=== PATIENT | female | born 1965 | race Caucasian/White ===

== ENCOUNTER 2017-01-25 08:39 | Emergency (ER) | payer MEDICAID ==
[~2017-01-25] VITALS: Ht 154.9 cm; Wt 78.5 kg
[~2017-01-25 08:39] MED LIST: [UNRECOGNIZED DRUG - CODE] SUBQ
[2017-01-25 08:43] VITALS: BP 152/86
--- NOTE | 2017-01-25 08:46 | NUR ---
PT AMBULATED TO BED 5.
--- NOTE | 2017-01-25 08:50 | NUR ---
51F BIB DAUGHTER C/O HEADACHE "ALL AROUND MY HEAD", NON-RADIATING, PRESSURE, 8/10 X 3 DAYS; PT STATES NO TRAUMA OR INJURY TO SITE AT THIS TIME; PT STATES NO BLURRY VISION OR VISION LOSS AT THIS TIME; NO FACIAL ASYMMETRY NOTED AT THIS TIME; PT SPEAKING WITH FULL CLEAR SPEECH, EQUAL BUE TOMB MAKER HELPER/PUSHES/PULLS NOTED AT THIS TIME; PT C/O NAUSEA, BUT STATES NO VOMITING OR DIARRHEA AT THIS TIME; ABDOMEN SOFT, NON-TENDER, ACTIVE BOWEL SOUNDS X 4 QUADRANTS; SKIN IS WARM/DRY/INTACT; STEADY GAIT; PT RESTING IN BED WITH HOB ELEVATED AND IN LOWEST POSITION; POSITIONED FOR COMFORT; ER MD MADE AWARE OF STATUS; WILL CONTINUE TO MONITOR.
--- NOTE | 2017-01-25 09:01 | NUR ---
ER MD DR. LEDESMA EVALUATING PT AT BEDSIDE.
[2017-01-25] MEDS ORDERED: METOCLOPRAMIDE 10 MG/2 ML INJ VIAL IM ONE (09:05)
--- NOTE | 2017-01-25 09:45 | NUR ---
PT STATES PAIN NOT RELIEVED BY MEDICATION ORDERED BY ER MD; ER MD NOTIFIED; RR EVEN/UNLABORED; POSITIONED FOR COMFORT; WILL CONTINUE TO MONITOR.
[2017-01-25] MEDS ORDERED: HYDROcodone/APAP 5/325 MG 1 TAB TAB PO ONE (09:50)
[2017-01-25 10:15] VITALS: BP 152/86
--- NOTE | 2017-01-25 10:15 | NUR ---
Patient discharged with v/s stable. Written and verbal after care instructions given and explained. Patient alert, oriented and verbalized understanding of instructions. Ambulatory with steady gait. All questions addressed prior to discharge. ID band removed. Patient advised to follow up with PMD. Rx of REGLAN AND NORCO given. Patient educated on indication of medication including possible reaction and side effects. Opportunity to ask questions provided and answered.
== END 2017-01-25 10:15 | disposition home or self-care (01) ==
LOC: MED 08:39
DX: R51 Headache (principal); R11.0 Nausea; E11.9 Type 2 diabetes mellitus without complications; K21.9 Gastro-esophageal reflux disease without esophagitis; Z79.4 Long term (current) use of insulin
CPT/HCPCS: 82948; 96372; 99283; J2765

== ENCOUNTER 2017-04-01 09:52 | Emergency (ER) | payer MEDICAID ==
[~2017-04-01] VITALS: Ht 152.4 cm; Wt 75.7 kg
[2017-04-01 09:57] VITALS: BP 145/103
[2017-04-01] MEDS ORDERED: LORazepam 0.5 MG TAB PO ONE (10:25)
[2017-04-01] MEDS ORDERED: traMADol 50 MG TAB PO ONE (11:15)
[2017-04-01] MEDS ORDERED: ONDANSETRON 4 MG ODT PO ONE (11:15)
[2017-04-01] MEDS ORDERED: INSULIN HUMAN REGULAR 100 UNITS/ML 10 ML VIAL SUBQ ONE (11:50)
[2017-04-01 12:34] VITALS: BP 133/88
== END 2017-04-01 12:34 | disposition home or self-care (01) ==
LOC: MED 09:52
DX: G44.209 Tension-type headache, unspecified, not intractable (principal); F41.9 Anxiety disorder, unspecified; I10 Essential (primary) hypertension; E11.9 Type 2 diabetes mellitus without complications; K21.9 Gastro-esophageal reflux disease without esophagitis; Z79.4 Long term (current) use of insulin
CPT/HCPCS: 70450; 81002; 82948; 96372; 99284; J1815; S0119

== ENCOUNTER 2017-05-17 09:55 | Emergency (ER) | payer MEDICAID ==
[~2017-05-17] VITALS: Ht 154.9 cm; Wt 80.0 kg
[2017-05-17 10:04] VITALS: BP 150/86
--- NOTE | 2017-05-17 10:09 | NUR ---
PT TRIAGED, WAITING IN LOBBY FOR ER BED. ERMD NOTIFIED.
--- NOTE | 2017-05-17 10:15 | NUR ---
Patient to OF.
--- NOTE | 2017-05-17 10:28 | NUR ---
PATIENT PRESENTS TO ED WITH general headache pressure type pain x 4 days---denies injury . PT STATES [seen by pmd 1 wk ago rx ibuprofen but told to suspend 2 to peptic ulcer/gerd admits to NAUSEA ONLY SKIN IS PINK/WARM/DRY; AAOX4 WITH EVEN AND STEADY GAIT; LUNGS CLEAR BL; HR EVEN AND REGULAR; PT DENIES ANY FEVER, CP, SOB,NASAL CONGESTION OR COUGH AT THIS TIME; PATIENT STATES PAIN OF 9/10 AT THIS TIME; VSS; PATIENT POSITIONED FOR COMFORT; HOB ELEVATED; BEDRAILS UP X2; BED DOWN. ER MD MADE AWARE OF PT STATUS.
[2017-05-17] MEDS ORDERED: KETOROLAC 60 MG/2 ML VIAL IM ONE (10:40)
[2017-05-17 11:13] VITALS: BP 136/83
--- NOTE | 2017-05-17 11:13 | NUR ---
Patient discharged with v/s stable. Written and verbal after care instructions given and explained. Patient alert, oriented and verbalized understanding of instructions. Ambulatory with steady gait. All questions addressed prior to discharge. ID band removed. Patient advised to follow up with PMD. Rx of ZOFRAN/TRAMADOL given. Patient educated on indication of medication including possible reaction and side effects. Opportunity to ask questions provided and answered.
== END 2017-05-17 11:13 | disposition home or self-care (01) ==
LOC: MED 09:55
DX: R51 Headache (principal); R03.0 Elevated blood-pressure reading, without diagnosis of hypertension; E11.9 Type 2 diabetes mellitus without complications; K21.9 Gastro-esophageal reflux disease without esophagitis; Z79.899 Other long term (current) drug therapy
CPT/HCPCS: 82948; 96372; 99283; J1885

== ENCOUNTER 2017-08-23 10:28 | Emergency (ER) | payer MEDICAID ==
[~2017-08-23] VITALS: Ht 154.9 cm; Wt 78.9 kg
[2017-08-23 10:30] VITALS: BP 119/83
--- NOTE | 2017-08-23 10:40 | NUR ---
PATIENT PRESENTS TO ED WITH RIGHT HAND PAIN RADIATING RIGHT UP ARM AND SHOULDER X 1MONTH . PT STATES DENIES INJURY--WAS SEEN BY PMD 2 WKS AGO . DENIES N/V/D; SKIN IS PINK/WARM/DRY; AAOX4 WITH EVEN AND STEADY GAIT; LUNGS CLEAR BL; HR EVEN AND REGULAR; PT DENIES ANY FEVER, CP, SOB, OR COUGH AT THIS TIME; PATIENT STATES PAIN OF 7/10 AT THIS TIME; VSS; PATIENT POSITIONED FOR COMFORT; ER MD MADE AWARE OF PT STATUS.
[2017-08-23] MEDS ORDERED: KETOROLAC 30 MG/ML VIAL IM ONE (10:55)
--- NOTE | 2017-08-23 11:00 | NUR ---
PT TO RADIOLOGY VIA
--- NOTE | 2017-08-23 11:09 | NUR ---
returned from radiology
[2017-08-23 11:56] VITALS: BP 141/90
== END 2017-08-23 11:56 | disposition home or self-care (01) ==
LOC: MED 10:28
DX: G56.01 Carpal tunnel syndrome, right upper limb (principal); Z76.5 Malingerer [conscious simulation]; E11.9 Type 2 diabetes mellitus without complications; K21.9 Gastro-esophageal reflux disease without esophagitis; Z79.84 Long term (current) use of oral hypoglycemic drugs
CPT/HCPCS: 29125; 73130; 96372; 99284; J1885

== ENCOUNTER 2017-09-11 09:43 | Emergency (ER) | payer MEDICAID ==
[~2017-09-11] VITALS: Ht 157.5 cm; Wt 79.4 kg
[2017-09-11 09:59] VITALS: BP 133/85
[2017-09-11 10:05] VITALS: BP 133/85
[2017-09-11] MEDS ORDERED: PROCHLORPERAZINE 10 MG/2 ML VIAL IM ONE (12:30)
[2017-09-11] MEDS ORDERED: traMADol 50 MG TAB PO ONE (12:30)
== END 2017-09-11 13:00 | disposition home or self-care (01) ==
LOC: MED 09:43
DX: G43.909 Migraine, unspecified, not intractable, without status migrainosus (principal); E11.9 Type 2 diabetes mellitus without complications; K21.9 Gastro-esophageal reflux disease without esophagitis
CPT/HCPCS: 81002; 96372; 99283; J0780

== ENCOUNTER 2017-10-03 09:59 | Emergency (ER) | payer MEDICAID ==
[~2017-10-03] VITALS: Ht 157.5 cm; Wt 79.4 kg
[2017-10-03 10:00] VITALS: BP 138/85
--- NOTE | 2017-10-03 10:07 | NUR ---
PT AMBULATED TO BED4
--- NOTE | 2017-10-03 10:13 | NUR ---
T. CAME INTO ED DUE TO R FLANK PAIN X 3 DAYS. PT. AAOX4. PT. STATES "THIS PAIN STARTED ON SATURDAY I WENT TO MY PRIMARY DOCTOR AND THEY SAID I WAS FINE AND JUST PRESCRIBED ME SOME MOTRIN BUT MOTRIN MAKES ME NAUSEAS BECAUSE OF MY GASTRITIS, SO I BOUGHT TYLENOL IT HELPS A LITTLE BUT IT COMES BACK". PT. DENIES ANY BURNING UPON URINATION OR URINARY FREQUENCY, PT STATES THAT SHE HAS REGULAR BOWEL MOVEMENTS, PT STATES" I USED TO HAVE KIDNEY STONES BUT MY DOCTOR SAID I DIDNT ANY MORE " RR EVEN AND UNLABORED, DENIES FEVER, DENIES SOB, DENIES CHEST PAIN, PT DOES HAVE NAUSEA BUT NO VOMITING. Errol BLAS AWARE. SAFETY PRECAUTIONS INITIATED. WILL CONTINUE TO MONITOR.
[2017-10-03] MEDS ORDERED: NACL 0.9% 500 ML IV ONE (10:23)
[2017-10-03] MEDS ORDERED: KETOROLAC 30 MG/ML VIAL IVP ONE (10:25)
[2017-10-03] MEDS ORDERED: ONDANSETRON 4 MG/2 ML VIAL IVP ONE (10:25)
--- NOTE | 2017-10-03 10:40 | NUR ---
Patient being evaluated by DR SOW at bedside.
[2017-10-03 10:46] LABS: BASOPHILS % (AUTO) 0.5 % (0.0-2.0); EOSINOPHILS # (AUTO) 0.1 K/uL (0-0.4); EOSINOPHILS % (AUTO) 1.2 % (0.0-4.0); HEMATOCRIT 43.8 % (36-48); HEMOGLOBIN 14.9 g/dL (12.0-16.0); LYMPHOCYTES # (AUTO) 2.1 K/uL (2.5-16.5); LYMPHOCYTES % (AUTO) 29.1 % (20.5-51.1); MEAN CORPUSCULAR HEMOGLOBIN 30 pg (27-31); MEAN CORPUSCULAR HGB CONC 34 g/dL (33-37); MEAN CORPUSCULAR VOLUME 88.2 fL (80-94); MONOCYTES # (AUTO) 0.4 K/uL (0.8-1.0); MONOCYTES % (AUTO) 5.1 % (1.7-9.3); NEUTROPHILS # (AUTO) 4.7 K/uL (1.8-7.7); NEUTROPHILS % (AUTO) 64.1 % (42.2-75.2); PLATELET COUNT (AUTO) 174 K/uL (140-450); RED BLOOD CELL COUNT(AUTO) 4.96 MIL/uL (4.20-5.40); RED CELL DISTRIBUTION WIDTH 13.1 % (11.6-13.7); WHITE BLOOD COUNT (AUTO) 7.3 K/uL (4.8-10.8)
[2017-10-03 10:56] LABS: APPEARANCE,URINE CLEAR (CLEAR); BILIRUBIN,URINE NEGATIVE (NEGATIVE); BLOOD, URINE NEGATIVE (NEGATIVE); COLOR,URINE YELLOW (YELLOW); LEUKOCYTE ESTERASE ,URINE NEGATIVE (NEGATIVE); NITRITE, URINE NEGATIVE (NEGATIVE); UGLUCOSE 3+ (NEGATIVE)
[2017-10-03 10:59] LABS: ALBUMIN 3.6 g/dL (3.4-5.0); ANION GAP 13.9 (8-16); CARBON DIOXIDE 25.2 mmol/L (21-32); CREATININE 0.8 mg/dL (0.6-1.3); POTASSIUM 4.1 mmol/L (3.5-5.1); TOTAL BILIRUBIN 0.6 mg/dL (0.0-1.0)
[2017-10-03 11:10] LABS: RBC,URINE 0-5 (RARE) /HPF (0-5); WBC,URINE 0-5 (RARE) /HPF (0-5)
--- NOTE | 2017-10-03 11:18 | NUR ---
C/O PAIN 03/05. NOTIFIED DR SOW.
[2017-10-03] MEDS ORDERED: fentaNYL 0.05 MG/ML VIAL IVP ONE (11:20)
[2017-10-03 12:05] VITALS: BP 135/65
--- NOTE | 2017-10-03 12:05 | NUR ---
Patient discharged with v/s stable. Written and verbal after care instructions given and explained. Patient alert, oriented and verbalized understanding of instructions. Ambulatory with steady gait. All questions addressed prior to discharge. ID band removed. Patient advised to follow up with PMD. Rx of TRAMADOL, MOTRIN given. Patient educated on indication of medication including possible reaction and side effects. Opportunity to ask questions provided and answered.
== END 2017-10-03 12:05 | disposition home or self-care (01) ==
LOC: MED 09:59
DX: N20.0 Calculus of kidney (principal); R73.9 Hyperglycemia, unspecified; E11.9 Type 2 diabetes mellitus without complications; K21.9 Gastro-esophageal reflux disease without esophagitis; Z79.4 Long term (current) use of insulin
CPT/HCPCS: 36415; 74176; 80053; 81001; 81025; 85025; 96361; 96374; 96375; 99285; J1885; J2405; J3010

== ENCOUNTER 2018-01-18 08:22 | Emergency (ER) | payer MEDICAID ==
[~2018-01-18] VITALS: Ht 157.5 cm; Wt 76.7 kg
[2018-01-18 08:26] VITALS: BP 130/82
--- NOTE | 2018-01-18 08:27 | NUR ---
pt ambulated to rm 9 with steady gait
--- NOTE | 2018-01-18 08:35 | NUR ---
52f bib self with c/o non radiating constant mid lower back pain x 4 days, progressively getting worse. Patinet sts she was lifting approx 5 lb boxs at work when pain occured. Patient denies any urinary complaints or fevers. Pt is aox4 to person, place, situation, and time. RR are even and unlabored. Pt changed into gown and positioned to comfort. Awaiting er md jane. Will continue to monitor.
[2018-01-18] MEDS ORDERED: KETOROLAC 30 MG/ML VIAL IM ONE (09:00)
[2018-01-18] MEDS ORDERED: CYCLOBENZAPRINE 10 MG TAB PO ONE (09:00)
[2018-01-18 09:45] VITALS: BP 136/81
--- NOTE | 2018-01-18 09:45 | NUR ---
Patient discharged with v/s stable. Patient sts friend will be providing transportation home. Written and verbal after care instructions given and explained. Patient alert, oriented and verbalized understanding of instructions. Ambulatory with steady gait. All questions addressed prior to discharge. ID band removed. Patient advised to follow up with PMD. Rx of Flexeril, Tramadol, and Acetaminophen given. Patient educated on indication of medication including possible reaction and side effects. Opportunity to ask questions provided and answered.
== END 2018-01-18 09:45 | disposition home or self-care (01) ==
LOC: MED 08:22
DX: G89.29 Other chronic pain (principal); M54.5 Low back pain; K21.9 Gastro-esophageal reflux disease without esophagitis; E11.9 Type 2 diabetes mellitus without complications; Z79.4 Long term (current) use of insulin
CPT/HCPCS: 81002; 81025; 82948; 96372; 99283; J1885

== ENCOUNTER 2018-02-14 07:57 | Emergency (ER) | payer MEDICAID ==
[~2018-02-14] VITALS: Ht 162.6 cm; Wt 81.6 kg
[2018-02-14 08:02] VITALS: BP 105/76
--- NOTE | 2018-02-14 08:10 | NUR ---
PATIENT AMBULATED TO BED 2 AT THIS TIME.
--- NOTE | 2018-02-14 08:12 | NUR ---
52 YEAR OLD FEMALE BROUGHT IN BY SELF. PATIENT PRESENTS TO ED WITH ABD PAIN X4 DAYS. HX OF DIABETES, CURRENT BS HIGH AT 347 PATIENT STATED SHE TOOK 20 UNITS OF LANTUS BEFORE SHE CAME IN. PT STATES PAIN IN IN HER UPPER ABD. STATES SHE HAS BEEN NAUSEOUS BUT HAS NOT VOMITED; SKIN IS PINK/WARM/DRY; AAOX4 WITH EVEN AND STEADY GAIT; LUNGS CLEAR BL; HR EVEN AND REGULAR; PT DENIES ANY FEVER, CP, SOB, OR COUGH AT THIS TIME; PATIENT STATES PAIN OF 8/10 AT THIS TIME; VSS; PATIENT POSITIONED FOR COMFORT; HOB ELEVATED; BEDRAILS UP X2; BED DOWN. ER MADE AWARE OF PT STATUS. Addendum: 02/14/18 at 0821 by DAJA PATIENT STATES SHE HAS BEEN TAKING 800MG IBPROFEN INSTRUCTED BY HER WITH NO RELIEF.
--- NOTE | 2018-02-14 08:27 | NUR ---
DR GUERRA AT BEDSIDE
[2018-02-14] MEDS ORDERED: NACL 0.9% 1,000 ML IV SCH (08:31)
[2018-02-14] MEDS ORDERED: NACL 0.9% 1,000 ML IV ONE (08:31)
[2018-02-14] MEDS ORDERED: MORPHINE SULFATE 2 MG/ML SYR IVP ONE (08:35)
[2018-02-14] MEDS ORDERED: METOCLOPRAMIDE 10 MG/2 ML INJ VIAL IVP ONE (08:35)
[2018-02-14] MEDS ORDERED: DICYCLOMINE HCL LIQUID 10 MG/5 ML UDC PO ONE (08:35)
[2018-02-14] MEDS ORDERED: ONDANSETRON 4 MG/2 ML VIAL IVP ONE (08:35)
[2018-02-14] MEDS ORDERED: KETOROLAC 30 MG/ML VIAL IVP ONE (08:35)
--- NOTE | 2018-02-14 09:21 | NUR ---
US TECH AT BEDSIDE.
[2018-02-14 09:23] LABS: HEMATOCRIT 43.3 % (36-48); HEMOGLOBIN 14.5 g/dL (12.0-16.0); MEAN CORPUSCULAR HEMOGLOBIN 31 pg (27-31); RED BLOOD CELL COUNT(AUTO) 4.76 MIL/uL (4.20-5.40); WHITE BLOOD COUNT (AUTO) 7.6 K/uL (4.8-10.8)
[2018-02-14 09:24] LABS: BASOPHILS % (AUTO) 0.8 % (0.0-2.0); EOSINOPHILS % (AUTO) 2.1 % (0.0-4.0); LYMPHOCYTES # (AUTO) 1.8 K/uL (2.5-16.5); LYMPHOCYTES % (AUTO) 24.1 % (20.5-51.1); MEAN CORPUSCULAR HGB CONC 34 g/dL (33-37); MONOCYTES # (AUTO) 0.5 K/uL (0.8-1.0); MONOCYTES % (AUTO) 5.9 % (1.7-9.3); NEUTROPHILS % (AUTO) 67.1 % (42.2-75.2); PLATELET COUNT (AUTO) 226 K/uL (140-450); RED CELL DISTRIBUTION WIDTH 12.2 % (11.6-13.7)
[2018-02-14 09:25] LABS: BASOPHILS # (AUTO) 0.1 K/uL (0.00-0.22); EOSINOPHILS # (AUTO) 0.2 K/uL (0-0.4)
[2018-02-14 09:30] LABS: ANION GAP 8.9 (8-16); CARBON DIOXIDE 27.9 mmol/L (21-32); CREATININE 0.9 mg/dL (0.6-1.3); POTASSIUM 3.8 mmol/L (3.5-5.1)
[2018-02-14 09:35] LABS: ALBUMIN 3.7 g/dL (3.4-5.0); TOTAL BILIRUBIN 0.7 mg/dL (0.0-1.0)
[2018-02-14 10:45] LABS: BILIRUBIN,URINE NEGATIVE (NEGATIVE); BLOOD, URINE TRACE-I (NEGATIVE); COLOR,URINE YELLOW (YELLOW); LEUKOCYTE ESTERASE ,URINE NEGATIVE (NEGATIVE); NITRITE, URINE NEGATIVE (NEGATIVE); UGLUCOSE 3+ (NEGATIVE)
[2018-02-14 10:46] LABS: APPEARANCE,URINE HAZY (CLEAR)
--- NOTE | 2018-02-14 10:55 | NUR ---
PATIENT REPORTS NEW ONSET HEADACHE OF 12/03. DR GUERRA INFORMED.
[2018-02-14 10:57] LABS: RBC,URINE 0-5 (RARE) /HPF (0-5); WBC,URINE 0-5 (RARE) /HPF (0-5)
--- NOTE | 2018-02-14 12:10 | NUR ---
Patient discharged with v/s stable. Written and verbal after care instructions given and explained. Patient alert, oriented and verbalized understanding of instructions. Ambulatory with steady gait. All questions addressed prior to discharge. ID band removed. Patient advised to follow up with PMD. Rx of reglan given. Patient educated on indication of medication including possible reaction and side effects. Opportunity to ask questions provided and answered.
[2018-02-14 12:42] VITALS: BP 121/87
== END 2018-02-14 12:10 | disposition home or self-care (01) ==
LOC: MED 07:57
DX: R11.2 Nausea with vomiting, unspecified (principal); E11.43 Type 2 diabetes mellitus with diabetic autonomic (poly)neuropathy; K31.84 Gastroparesis; N20.9 Urinary calculus, unspecified; I10 Essential (primary) hypertension; K21.9 Gastro-esophageal reflux disease without esophagitis; Z79.4 Long term (current) use of insulin; Z87.442 Personal history of urinary calculi
CPT/HCPCS: 36415; 74176; 76705; 80053; 81001; 81025; 82150; 82948; 83690; 85025; 96361; 96374; 96375; 99285; J1885; J2270; J2405; J2765; J7030; Q0092

== ENCOUNTER 2018-03-21 10:04 | Emergency (ER) | payer MEDICAID ==
[~2018-03-21] VITALS: Ht 154.9 cm; Wt 79.4 kg
[2018-03-21 10:10] VITALS: BP 167/85
[2018-03-21] MEDS ORDERED: KETOROLAC 60 MG/2 ML VIAL IM ONE (10:55)
[2018-03-21] MEDS ORDERED: PROMETHAZINE 25 MG/ML VIAL IM ONE (10:55)
[2018-03-21] MEDS ORDERED: HYDROmorphone 1 MG/ML AMP IM ONE (10:55)
[2018-03-21 11:42] VITALS: BP 128/70
== END 2018-03-21 11:43 | disposition home or self-care (01) ==
LOC: MED 10:04
DX: G43.909 Migraine, unspecified, not intractable, without status migrainosus (principal); E11.9 Type 2 diabetes mellitus without complications; K21.9 Gastro-esophageal reflux disease without esophagitis
CPT/HCPCS: 82948; 96372; 99284; J1170; J1885; J2550

== ENCOUNTER 2018-04-26 08:32 | Emergency (ER) | payer MEDICAID ==
[~2018-04-26] VITALS: Ht 162.6 cm; Wt 85.3 kg
[2018-04-26 08:35] VITALS: BP 146/80
--- NOTE | 2018-04-26 08:40 | NUR ---
52 YO F BIB SELF W/ C/O BL EAR PAIN AND HEADACHE X 1 WEEK. PT STATES SHE HAS SEEN PMD ABOUT THE PROBLEM, GIVEN MOTRIN AND NAPROXEN BUT THEY ARE NOT EFFECTIVE. PT DENIES DIZZINES, N/V. AAOX4, GCS 15. PT. DENIES ANY FALLS. 10/10 DULL THROBBING PAIN IN BOTH EARS THAT RADIATES TO HEAD. DENIES ANY FEVERS OR CHILLS. ER MD MADE AWARE. SAFETY PRECAUTIONS IMPLEMENTED. WILL CONTINUE TO MONITOR.
[2018-04-26] MEDS ORDERED: KETOROLAC 60 MG/2 ML VIAL IM ONE (09:20)
[2018-04-26] MEDS ORDERED: cefTRIAXone 1,000 MG in LIDOCAINE 1% ***ER ONLY *** 2.1 ML IM ONE (09:20)
[2018-04-26] MEDS ORDERED: cefTRIAXone 1,000 MG VIAL ONE (09:32)
[2018-04-26] MEDS ORDERED: LIDOCAINE MPF 1% - 5 mL VIAL 5 ML ONE (09:33)
--- NOTE | 2018-04-26 09:39 | NUR ---
PT. RESTING COMFORTABLY IN BED , RR EVEN AND UNLABORED. HOB ELEVATED. WILL CONTINUE TO MONITOR.
[2018-04-26 09:56] VITALS: BP 141/77
--- NOTE | 2018-04-26 09:56 | NUR ---
Patient discharged with v/s stable. Written and verbal after care instructions given and explained. Patient alert, oriented and verbalized understanding of instructions. Ambulatory with steady gait. All questions addressed prior to discharge. ID band removed. Patient advised to follow up with PMD. Rx of CIPRO 500MG, FIORECET 50MG given. Patient educated on indication of medication including possible reaction and side effects. Opportunity to ask questions provided and answered.
== END 2018-04-26 09:56 | disposition home or self-care (01) ==
LOC: MED 08:32
DX: H65.93 Unspecified nonsuppurative otitis media, bilateral (principal); E66.9 Obesity, unspecified; K21.9 Gastro-esophageal reflux disease without esophagitis; E11.9 Type 2 diabetes mellitus without complications; I10 Essential (primary) hypertension; Z79.4 Long term (current) use of insulin; Z68.32 Body mass index [BMI] 32.0-32.9, adult
CPT/HCPCS: 82948; 96372; 99283; J0696; J1885; J2001

== ENCOUNTER 2018-06-19 14:19 | Emergency (ER) | payer MEDICAID ==
[~2018-06-19] VITALS: Ht 162.6 cm; Wt 78.2 kg
[2018-06-19 14:20] VITALS: BP 118/82
[2018-06-19] MEDS ORDERED: NACL 0.9% 1,000 ML IV SCH (14:58)
[2018-06-19 15:30] LABS: BASOPHILS % (AUTO) 0.5 % (0.0-2.0); EOSINOPHILS # (AUTO) 0.1 K/uL (0-0.4); EOSINOPHILS % (AUTO) 1.5 % (0.0-4.0); HEMATOCRIT 40.3 % (36-48); HEMOGLOBIN 13.7 g/dL (12.0-16.0); LYMPHOCYTES # (AUTO) 2.7 K/uL (2.5-16.5); LYMPHOCYTES % (AUTO) 36.6 % (20.5-51.1); MEAN CORPUSCULAR HEMOGLOBIN 31 pg (27-31); MEAN CORPUSCULAR HGB CONC 34 g/dL (33-37); MEAN CORPUSCULAR VOLUME 89.7 fL (80-94); MONOCYTES # (AUTO) 0.5 K/uL (0.8-1.0); MONOCYTES % (AUTO) 6.9 % (1.7-9.3); NEUTROPHILS % (AUTO) 54.5 % (42.2-75.2); PLATELET COUNT (AUTO) 199 K/uL (140-450); RED BLOOD CELL COUNT(AUTO) 4.49 MIL/uL (4.20-5.40); RED CELL DISTRIBUTION WIDTH 13.3 % (11.6-13.7); WHITE BLOOD COUNT (AUTO) 7.4 K/uL (4.8-10.8)
[2018-06-19 15:33] LABS: APPEARANCE,URINE CLEAR (CLEAR); BILIRUBIN,URINE NEGATIVE (NEGATIVE); BLOOD, URINE 2+ (NEGATIVE); COLOR,URINE YELLOW (YELLOW); LEUKOCYTE ESTERASE ,URINE NEGATIVE (NEGATIVE); NITRITE, URINE NEGATIVE (NEGATIVE); UGLUCOSE 3+ (NEGATIVE)
[2018-06-19 15:48] LABS: ALBUMIN 3.6 g/dL (3.4-5.0); ANION GAP 8.2 (8-16); CARBON DIOXIDE 27.9 mmol/L (21-32); CREATININE 0.9 mg/dL (0.6-1.3); POTASSIUM 4.1 mmol/L (3.5-5.1); TOTAL BILIRUBIN 0.3 mg/dL (0.0-1.0)
[2018-06-19] MEDS ORDERED: KETOROLAC 30 MG/ML VIAL IVP ONE (15:50)
[2018-06-19 16:11] LABS: RBC,URINE 50-80 /HPF (0-5)
[2018-06-19 16:12] LABS: WBC,URINE 0-5 (RARE) /HPF (0-5)
[2018-06-19] MEDS ORDERED: MORPHINE SULFATE 4 MG/ML SYR IVP ONE (16:40)
[2018-06-19 17:56] VITALS: BP 128/70
== END 2018-06-19 17:56 | disposition home or self-care (01) ==
LOC: MED 14:19
DX: R10.11 Right upper quadrant pain (principal); E11.9 Type 2 diabetes mellitus without complications; K21.9 Gastro-esophageal reflux disease without esophagitis; Z79.4 Long term (current) use of insulin
CPT/HCPCS: 36415; 76705; 80053; 81001; 81025; 83690; 85025; 96374; 96375; 99284; J1885; J2270; J7030; Q0092

== ENCOUNTER 2018-07-12 08:50 | Emergency (ER) | payer MEDICAID ==
[~2018-07-12] VITALS: Ht 152.4 cm; Wt 78.2 kg
[2018-07-12 09:06] VITALS: BP 156/59
--- NOTE | 2018-07-12 09:12 | NUR ---
SELF DOSED 10UNITS OF MARSHALL SQ @ 0900HRS TODAY---CURRENT BS IS 475
--- NOTE | 2018-07-12 09:15 | NUR ---
PT AMBULATES TO BED 5
--- NOTE | 2018-07-12 09:17 | NUR ---
52Y/F C/O CONSTANT HEADACHE WITH NAUSEA AND DIZZINESS X YESTERDAY, ADDS SEEN BY PMD 3 DAYS AGO SAME COMPLAINT RX TYLENOL / MOTRIN, PT STATES ITS NOT HELPING, AMBULATORY WITH STEADY GAIT, FULL CLEAR SPEECH, NO FACIAL ASYMMETRY NOTED, EQUAL HAND MUSIC SOUND LIGHT TECHNICIAN, NO DRIFT NOTED AT THIS TIME, DENIES RECENT INJURY. PT IS AAOX4, VSS AT THIS TIME, BED DOWN, BEDRAIL UP X 1, ER MD AWARE AND NOTIFIED OF PT STATUS. HX: MIGRAINE, DM, KIDNEY STONES RX: MOTRIN, TYLENOL, INSULIN
--- NOTE | 2018-07-12 09:57 | NUR ---
Patient being evaluated by physician at bedside.
[2018-07-12] MEDS ORDERED: diphenhydrAMINE 50 MG/ML VIAL IM ONE (10:00)
[2018-07-12] MEDS ORDERED: PROCHLORPERAZINE 10 MG/2 ML VIAL IM ONE (10:00)
--- NOTE | 2018-07-12 11:35 | NUR ---
Patient discharged with v/s stable. Written and verbal after care instructions given and explained. Patient alert, oriented and verbalized understanding of instructions. Ambulatory with steady gait. All questions addressed prior to discharge. ID band removed. Patient advised to follow up with PMD. Rx of tramadol, compazine, benadryl given. Patient educated on indication of medication including possible reaction and side effects. Opportunity to ask questions provided and answered.
[2018-07-12 11:36] VITALS: BP 145/57
== END 2018-07-12 11:35 | disposition home or self-care (01) ==
LOC: MED 08:50
DX: G43.909 Migraine, unspecified, not intractable, without status migrainosus (principal); E11.9 Type 2 diabetes mellitus without complications; K21.9 Gastro-esophageal reflux disease without esophagitis; Z87.442 Personal history of urinary calculi; Z79.4 Long term (current) use of insulin
CPT/HCPCS: 82948; 96372; 99283; J0780; J1200

== ENCOUNTER 2018-07-28 08:11 | Emergency (ER) | payer MEDICAID ==
[~2018-07-28] VITALS: Ht 154.9 cm; Wt 83.1 kg
[2018-07-28 08:13] VITALS: BP 152/81
--- NOTE | 2018-07-28 08:18 | NUR ---
PT AMBULATED TO ER BED 03
[2018-07-28] MEDS ORDERED: NACL 0.9% 1,000 ML IV SCH (08:22)
--- NOTE | 2018-07-28 08:23 | NUR ---
BIB SELF WITH EPIGASTRIC BURNING PAIN X 2 DAYS. ACCOMPANIED BY MILD NAUSEA. DENIES VOMITING. LAST BOWEL MOVEMENT 0600 NORMAL. DENIES FEVER, CP, SOB AT THIS TIME. POSITIONED FOR COMFORT, BED LOW AND LOCKED.
[2018-07-28] MEDS ORDERED: METOCLOPRAMIDE 10 MG/2 ML INJ VIAL IVP ONE (08:25)
[2018-07-28] MEDS ORDERED: FAMOTIDINE 20 MG/2 ML VIAL IVP ONE (08:25)
[2018-07-28] MEDS ORDERED: MORPHINE SULFATE 4 MG/ML SYR IVP ONE (08:25)
[2018-07-28 08:49] LABS: BASOPHILS # (AUTO) 0.1 K/uL (0.00-0.22); BASOPHILS % (AUTO) 0.7 % (0.0-2.0); EOSINOPHILS # (AUTO) 0.2 K/uL (0-0.4); EOSINOPHILS % (AUTO) 2.5 % (0.0-4.0); HEMOGLOBIN 13.5 g/dL (12.0-16.0); LYMPHOCYTES # (AUTO) 2.7 K/uL (2.5-16.5); LYMPHOCYTES % (AUTO) 35.2 % (20.5-51.1); MEAN CORPUSCULAR HEMOGLOBIN 30 pg (27-31); MEAN CORPUSCULAR HGB CONC 34 g/dL (33-37); MEAN CORPUSCULAR VOLUME 90.1 fL (80-94); MONOCYTES # (AUTO) 0.5 K/uL (0.8-1.0); MONOCYTES % (AUTO) 6.4 % (1.7-9.3); NEUTROPHILS # (AUTO) 4.3 K/uL (1.8-7.7); NEUTROPHILS % (AUTO) 55.2 % (42.2-75.2); PLATELET COUNT (AUTO) 203 K/uL (140-450); RED BLOOD CELL COUNT(AUTO) 4.44 MIL/uL (4.20-5.40); RED CELL DISTRIBUTION WIDTH 13.1 % (11.6-13.7); WHITE BLOOD COUNT (AUTO) 7.7 K/uL (4.8-10.8)
[2018-07-28 09:06] LABS: APPEARANCE,URINE CLEAR (CLEAR); BILIRUBIN,URINE NEGATIVE (NEGATIVE); BLOOD, URINE NEGATIVE (NEGATIVE); COLOR,URINE YELLOW (YELLOW); LEUKOCYTE ESTERASE ,URINE NEGATIVE (NEGATIVE); NITRITE, URINE NEGATIVE (NEGATIVE); UGLUCOSE 2+ (NEGATIVE)
[2018-07-28 09:08] LABS: ANION GAP 13.4 (8-16); CARBON DIOXIDE 26.5 mmol/L (21-32); CREATININE 0.9 mg/dL (0.6-1.3); POTASSIUM 3.9 mmol/L (3.5-5.1)
[2018-07-28 09:12] LABS: PROTHROMBIN TIME 9.3 secs (10.8-13.4)
[2018-07-28 09:14] LABS: ALBUMIN 3.6 g/dL (3.4-5.0); MAGNESIUM 1.9 mg/dL (1.8-2.4); TOTAL BILIRUBIN 0.3 mg/dL (0.0-1.0)
--- NOTE | 2018-07-28 09:30 | NUR ---
NO NEEDS STATED AT THIS TIME. STATES PAIN HAS IMPROVED.
[2018-07-28 11:01] VITALS: BP 115/78
--- NOTE | 2018-07-28 11:02 | NUR ---
Patient discharged with v/s stable. Written and verbal after care instructions given and explained. Patient alert, oriented and verbalized understanding of instructions. Ambulatory with steady gait. All questions addressed prior to discharge. ID band removed. Patient advised to follow up with PMD. Rx of REGLAN given. Patient educated on indication of medication including possible reaction and side effects. Opportunity to ask questions provided and answered.
== END 2018-07-28 11:02 | disposition home or self-care (01) ==
LOC: MED 08:11
DX: R10.13 Epigastric pain (principal); R11.2 Nausea with vomiting, unspecified; E11.9 Type 2 diabetes mellitus without complications; E66.9 Obesity, unspecified; K21.9 Gastro-esophageal reflux disease without esophagitis; I10 Essential (primary) hypertension; Z68.34 Body mass index [BMI] 34.0-34.9, adult; Z79.4 Long term (current) use of insulin
CPT/HCPCS: 36415; 71045; 74176; 80053; 81003; 81025; 82150; 82977; 83036; 83690; 83735; 84484; 84550; 85025; 85610; 85730; 93005; 96361; 96374; 96375; 99284; J2270; J2765; J3490; J7030; Q0092

== ENCOUNTER 2018-08-02 08:37 | Emergency (ER) | payer MEDICAID ==
[~2018-08-02] VITALS: Ht 157.5 cm; Wt 80.7 kg
[2018-08-02 08:38] VITALS: BP 154/85
--- NOTE | 2018-08-02 08:38 | NUR ---
PATIENT AMBULATED TO BED 4 AT THIS TIME.
--- NOTE | 2018-08-02 08:50 | NUR ---
Note undone in EDM - 08/02/18 at 0908 by MED PATIENT PRESENTS TO ED WITH ABDOMINAL PAIN. PT STATES RUQ PAIN OF 9/10, NON RADIATING.DENIES N/V; SKIN IS PINK/WARM/DRY; AAOX4 WITH EVEN AND STEADY GAIT. VSS. PATIENT POSITIONED FOR COMFORT. HOB ELEVATED. BEDRAILS UP X2; BED DOWN.
--- NOTE | 2018-08-02 08:50 | NUR ---
PATIENT PRESENTS TO ED WITH ABDOMINAL PAIN. PT STATES RUQ PAIN OF 9/10, NON RADIATING.DENIES N/V; SKIN IS PINK/WARM/DRY; AAOX4 WITH EVEN AND STEADY GAIT. PATIENT POSITIONED FOR COMFORT. HOB ELEVATED. BEDRAILS UP X2; BED DOWN.
--- NOTE | 2018-08-02 09:37 | NUR ---
Patient being evaluated by Dr Tsai at bedside.
[2018-08-02] MEDS ORDERED: KETOROLAC 60 MG/2 ML VIAL IM ONE (09:40)
[2018-08-02] MEDS ORDERED: DICYCLOMINE 20 MG/2 ML VIAL IM ONE (09:40)
[2018-08-02 10:24] VITALS: BP 114/50
--- NOTE | 2018-08-02 10:24 | NUR ---
Patient discharged with v/s stable. Written and verbal after care instructions given and explained. Patient alert, oriented and verbalized understanding of instructions. Ambulatory with steady gait. All questions addressed prior to discharge. ID band removed. Patient advised to follow up with PMD. Rx of Librax given. Patient educated on indication of medication including possible reaction and side effects. Opportunity to ask questions provided and answered.
== END 2018-08-02 10:24 | disposition home or self-care (01) ==
LOC: MED 08:37
DX: R10.30 Lower abdominal pain, unspecified (principal); G89.29 Other chronic pain; K21.9 Gastro-esophageal reflux disease without esophagitis; G43.909 Migraine, unspecified, not intractable, without status migrainosus; E11.43 Type 2 diabetes mellitus with diabetic autonomic (poly)neuropathy; K31.84 Gastroparesis; I10 Essential (primary) hypertension; Z79.4 Long term (current) use of insulin
CPT/HCPCS: 81002; 82948; 96372; 99283; J0500; J1885

== ENCOUNTER 2018-08-09 06:52 | Emergency (ER) | payer MEDICAID ==
[~2018-08-09] VITALS: Ht 157.5 cm; Wt 75.7 kg
--- NOTE | 2018-08-09 06:55 | NUR ---
PT AMBULATED TO ER BED 02
[2018-08-09 06:58] VITALS: BP 131/68
--- NOTE | 2018-08-09 06:58 | NUR ---
52/F PRESENTS WITH FAMILY, C/O DIZZINESS/VERTIGO, N/V, BL EAR PAIN AND ABD PAIN, THIS AM X4 HRS. REPORTS SIMILAR SYMPTOMS INTERMITTENTLY THE PAST 2 MONTHS WITH DX VERTIGO. DENIES CP OR SOB. PT AOX4, RR EVEN AND UNLABORED. PLACED ON MONITOR HX DM
--- NOTE | 2018-08-09 07:16 | NUR ---
Pt report given to LAZARA ROLDAN RN. Transfer of care at this time.
--- NOTE | 2018-08-09 07:30 | NUR ---
patient awake alert oriented. still nauseated but not vomitted. still complaining of headache 01/03
[2018-08-09 07:45] VITALS: BP 131/68
[2018-08-09] MEDS ORDERED: MECLIZINE 25 MG TAB PO ONE (07:50)
--- NOTE | 2018-08-09 07:56 | NUR ---
Ismael knott in [facility] - 08/09/18 at 0757 by LINDA MEDICATED FOR NAUSEA
--- NOTE | 2018-08-09 07:57 | NUR ---
MEDICATED FOR DIZZINESS
--- NOTE | 2018-08-09 08:00 | NUR ---
COMPLAINING OF HEADACHE/ABDOMINAL PAIN . ERMD AWARE
[2018-08-09] MEDS ORDERED: ACETAMINOPHEN 325 MG TAB PO ONE (08:05)
--- NOTE | 2018-08-09 08:15 | NUR ---
TO BED #2 TO MEDICATE PATIENT, PATIENT NOT THERE,PATIENT ELOPED. ERMD MADE AWARE
== END 2018-08-09 08:15 | disposition left against medical advice (07) ==
LOC: MED 06:52
DX: R10.13 Epigastric pain (principal); R42 Dizziness and giddiness; R11.2 Nausea with vomiting, unspecified; E11.9 Type 2 diabetes mellitus without complications; K21.9 Gastro-esophageal reflux disease without esophagitis; N28.9 Disorder of kidney and ureter, unspecified; Z79.4 Long term (current) use of insulin
CPT/HCPCS: 81002; 81025; 99282; J8597

== ENCOUNTER 2018-08-18 13:50 | Emergency (ER) | payer MEDICAID ==
[~2018-08-18] VITALS: Ht 157.5 cm; Wt 83.9 kg
[2018-08-18 14:10] VITALS: BP 151/80
--- NOTE | 2018-08-18 14:17 | NUR ---
PT AMBULATES TO BED 3
--- NOTE | 2018-08-18 14:20 | NUR ---
52 Y F BIB SELF C/O SOB, N/V X 4 DAYS, ANXIETY. HAS AN APPT. WITH PRIMARY ON SATURDAY. PT STATES SHE FEELS DIZZY AND LIGHTHEADED. PT PUT ON MONITOR. BED IS DOWN, LOCKED, BED RAIL X 1, ERMD NOTIFIED. HX: DM2 RX: INSULIN,ACETAMINOPHEN, IBUPROFIN
--- NOTE | 2018-08-18 15:20 | NUR ---
DR GUERRA AT BEDSIDE
[2018-08-18] MEDS ORDERED: NACL 0.9% 1,000 ML IV SCH (15:23)
[2018-08-18] MEDS ORDERED: NACL 0.9% 1,000 ML IV ONE (15:23)
[2018-08-18] MEDS ORDERED: FAMOTIDINE 20 MG/2 ML VIAL IVP ONE (15:25)
[2018-08-18] MEDS ORDERED: KETOROLAC 30 MG/ML VIAL IVP ONE (15:25)
[2018-08-18] MEDS ORDERED: diphenhydrAMINE 50 MG/ML VIAL IVP ONE (15:25)
[2018-08-18] MEDS ORDERED: METOCLOPRAMIDE 10 MG/2 ML INJ VIAL IVP ONE (15:25)
[2018-08-18 15:50] LABS: BASOPHILS % (AUTO) 0.4 % (0.0-2.0); EOSINOPHILS # (AUTO) 0.2 K/uL (0-0.4); HEMATOCRIT 38.4 % (36-48); HEMOGLOBIN 13.2 g/dL (12.0-16.0); LYMPHOCYTES # (AUTO) 2.2 K/uL (2.5-16.5); LYMPHOCYTES % (AUTO) 29.7 % (20.5-51.1); MEAN CORPUSCULAR HEMOGLOBIN 31 pg (27-31); MEAN CORPUSCULAR HGB CONC 34 g/dL (33-37); MEAN CORPUSCULAR VOLUME 90.5 fL (80-94); MONOCYTES # (AUTO) 0.4 K/uL (0.8-1.0); MONOCYTES % (AUTO) 5.1 % (1.7-9.3); NEUTROPHILS # (AUTO) 4.5 K/uL (1.8-7.7); NEUTROPHILS % (AUTO) 61.8 % (42.2-75.2); PLATELET COUNT (AUTO) 233 K/uL (140-450); RED BLOOD CELL COUNT(AUTO) 4.25 MIL/uL (4.20-5.40); RED CELL DISTRIBUTION WIDTH 13.2 % (11.6-13.7); WHITE BLOOD COUNT (AUTO) 7.3 K/uL (4.8-10.8)
[2018-08-18 15:54] LABS: APPEARANCE,URINE CLEAR (CLEAR); BILIRUBIN,URINE NEGATIVE (NEGATIVE); BLOOD, URINE NEGATIVE (NEGATIVE); COLOR,URINE YELLOW (YELLOW); LEUKOCYTE ESTERASE ,URINE NEGATIVE (NEGATIVE); NITRITE, URINE NEGATIVE (NEGATIVE); PH,URINE 6.5 (5.0-9.0); UGLUCOSE NEGATIVE (NEGATIVE)
[2018-08-18 15:58] LABS: ANION GAP 10.4 (8-16); CARBON DIOXIDE 28.7 mmol/L (21-32); CHLORIDE 106 mmol/L (98-107); CREATININE 0.8 mg/dL (0.6-1.3); GFR ARICAN-AMERICAN 97 mL/min (>90); GLUCOSE 110 mg/dL (74-106); POTASSIUM 4.1 mmol/L (3.5-5.1); SODIUM SERUM 141 mmol/L (136-145); UREA NITROGEN, BLOOD 14 mg/dL (7-18)
[2018-08-18 16:00] LABS: BARBITURATE, URINE NEG. ng/ml (NEG <=200); BENZODIAZEPINE, URINE NEG. ng/mL (NEG <=200); CANNABINOID, URINE NEG. ng/mL (NEG <=50); COCAINE, URINE NEG. ng/mL (NEG <=300); OPIATE, URINE NEG. ng/mL (NEG <=2000); PHENCYCLIDINE SCREEN,URINE NEG. ng/mL (NEG <=25)
[2018-08-18 16:03] LABS: ACETONE, SERUM NEGATIVE (NEGATIVE)
[2018-08-18 16:04] LABS: ALBUMIN 3.7 g/dL (3.4-5.0); AMYLASE 20 U/L (25-115); ASPARTATE AMINOTRANSFERASE 22 U/L (15-37); GAMMA GLUTAMYL TRANSFERASE 15 U/L (7-51); LIPASE 109 U/L (73-393); MAGNESIUM 2.1 mg/dL (1.8-2.4); TOTAL BILIRUBIN 0.3 mg/dL (0.0-1.0)
[2018-08-18] MEDS ORDERED: LORazepam 2 MG/ML VIAL IM ONE (17:10)
[2018-08-18 18:30] VITALS: BP 145/78
--- NOTE | 2018-08-18 18:30 | NUR ---
PT STATES SHE HAS A RIDE HOME
--- NOTE | 2018-08-18 18:34 | NUR ---
Patient discharged with v/s stable. Written and verbal after care instructions given and explained. Patient alert, oriented and verbalized understanding of instructions. Ambulatory with steady gait. All questions addressed prior to discharge. ID band removed. Patient advised to follow up with PMD. Rx of REGLAN, VISATRIL given. Patient educated on indication of medication including possible reaction and side effects. Opportunity to ask questions provided and answered.
== END 2018-08-18 18:34 | disposition home or self-care (01) ==
LOC: MED 13:50
DX: K21.9 Gastro-esophageal reflux disease without esophagitis (principal); E11.43 Type 2 diabetes mellitus with diabetic autonomic (poly)neuropathy; K31.84 Gastroparesis; F41.0 Panic disorder [episodic paroxysmal anxiety]; Z79.4 Long term (current) use of insulin
CPT/HCPCS: 36415; 36600; 74176; 80053; 80305; 81003; 81025; 82009; 82150; 82803; 82977; 83690; 83735; 85025; 96361; 96374; 96375; 99284; G0482; J1200; J1885; J2060; J2765; J3490; J7030

== ENCOUNTER 2018-08-27 13:13 | Emergency (ER) | payer MEDICAID ==
[~2018-08-27] VITALS: Ht 157.5 cm; Wt 83.7 kg
[2018-08-27 13:45] VITALS: BP 140/72
--- NOTE | 2018-08-27 13:56 | NUR ---
PT AMB TO BED 1
--- NOTE | 2018-08-27 14:00 | NUR ---
52 Y FEMALE BIB SELF C/O N/V, CONSTANT EPIGASTRIC PAIN RADIATING TO RIGHT FLANK X 3 DAYS. PAIN10/10. WENT TO PCP YESTERDAY ;DX: GASTRITIS GOT MOTRIN. NO CONSTIPATION OR DIARRHEA. BOWEL SOUNDS ATIVE IN ALL 4 QUADRANTS. ABDOMEN SOFT AND ROUND. LAST BM NORMAL XTODAY. DENIES TRAUMA. VSS AT THIS TIME. AA0X4. BED IS DOWN, LOCKED, BED RAIL X 1, ERMD NOTIFIED MED HX: ANXIETY MED: MECLIZINE,HYDROXYZINE, IBUPROFEN
--- NOTE | 2018-08-27 14:50 | NUR ---
EVALUATING PT AT BEDSIDE
[2018-08-27] MEDS ORDERED: PANTOPRAZOLE 40 MG INJ VIAL IVP ONE (14:55)
[2018-08-27] MEDS ORDERED: KETOROLAC 30 MG/ML VIAL IM ONE (14:55)
[2018-08-27] MEDS ORDERED: ONDANSETRON 4 MG/2 ML VIAL IVP ONE (14:55)
[2018-08-27 15:13] LABS: BASOPHILS # (AUTO) 0.1 K/uL (0.00-0.22); BASOPHILS % (AUTO) 1.2 % (0.0-2.0); EOSINOPHILS # (AUTO) 0.1 K/uL (0-0.4); EOSINOPHILS % (AUTO) 1.4 % (0.0-4.0); HEMATOCRIT 39.9 % (36-48); HEMOGLOBIN 13.6 g/dL (12.0-16.0); LYMPHOCYTES # (AUTO) 1.8 K/uL (2.5-16.5); LYMPHOCYTES % (AUTO) 25.7 % (20.5-51.1); MEAN CORPUSCULAR HEMOGLOBIN 31 pg (27-31); MEAN CORPUSCULAR HGB CONC 34 g/dL (33-37); MEAN CORPUSCULAR VOLUME 90.9 fL (80-94); MONOCYTES # (AUTO) 0.5 K/uL (0.8-1.0); MONOCYTES % (AUTO) 6.7 % (1.7-9.3); NEUTROPHILS # (AUTO) 4.6 K/uL (1.8-7.7); PLATELET COUNT (AUTO) 227 K/uL (140-450); RED BLOOD CELL COUNT(AUTO) 4.39 MIL/uL (4.20-5.40); RED CELL DISTRIBUTION WIDTH 13.4 % (11.6-13.7); WHITE BLOOD COUNT (AUTO) 7.1 K/uL (4.8-10.8)
[2018-08-27 15:31] LABS: ALBUMIN 3.7 g/dL (3.4-5.0); ANION GAP 11.8 (8-16); CARBON DIOXIDE 27.4 mmol/L (21-32); CREATININE 0.9 mg/dL (0.6-1.3); POTASSIUM 4.2 mmol/L (3.5-5.1); TOTAL BILIRUBIN 0.3 mg/dL (0.0-1.0)
[2018-08-27] MEDS ORDERED: KETOROLAC 30 MG/ML VIAL IVP ONE (15:50)
[2018-08-27 16:06] VITALS: BP 138/71
--- NOTE | 2018-08-27 16:06 | NUR ---
Patient discharged with v/s stable. Written and verbal after care instructions given and explained. Patient alert, oriented and verbalized understanding of instructions. Ambulatory with steady gait. All questions addressed prior to discharge. ID band removed. Patient advised to follow up with PMD. Rx of PANTOPRAZOLE given. Patient educated on indication of medication including possible reaction and side effects. Opportunity to ask questions provided and answered.
== END 2018-08-27 16:06 | disposition home or self-care (01) ==
LOC: MED 13:13
DX: N20.0 Calculus of kidney (principal); E11.9 Type 2 diabetes mellitus without complications; K21.9 Gastro-esophageal reflux disease without esophagitis; F41.9 Anxiety disorder, unspecified; Z79.4 Long term (current) use of insulin
CPT/HCPCS: 36415; 80053; 82948; 83690; 85025; 96374; 96375; 99283; C9113; J1885; J2405

== ENCOUNTER 2019-01-08 10:36 | Emergency (ER) | payer MEDICAID ==
[~2019-01-08] VITALS: Ht 157.5 cm; Wt 89.0 kg
[2019-01-08 10:46] VITALS: BP 179/75
--- NOTE | 2019-01-08 11:04 | NUR ---
PT C/O RT EAR PAIN AND HEADACHE X3 WEEKS. CONSTANT SHARP PAIN THAT RADIATES FROM RT EAR TO RIGHT-SIDED HEAD. REPORTS NAUSEA AND DIZZINESS. DENIES VOMNITNG, FEVER OR THROAT PAIN. PT STATES HAVING CONSTANT SHARP EAR PAIN 10/10 AND THROBBING HEADACHE 10/10. VSS; +1 EDEMA W/O ERYTHEMA OR DISCHARGE NOTICED IN PT'S RIGHT EAR. GUARDING AND WITHDRAWAL FROM TOUGH. PATIENT POSITIONED FOR COMFORT; HOB ELEVATED; BEDRAILS UP X1; BED DOWN. ER MD MADE AWARE OF PT STATUS.
[2019-01-08] MEDS ORDERED: oxyCODONE/APAP 5/325 MG 1 TAB TAB PO ONE (11:45)
[2019-01-08 12:15] LABS: BASOPHILS % (AUTO) 0.3 % (0.0-2.0); EOSINOPHILS # (AUTO) 0.1 K/uL (0-0.4); EOSINOPHILS % (AUTO) 1.8 % (0.0-4.0); HEMATOCRIT 37.2 % (36-48); HEMOGLOBIN 12.8 g/dL (12.0-16.0); LYMPHOCYTES # (AUTO) 2.1 K/uL (2.5-16.5); LYMPHOCYTES % (AUTO) 31.2 % (20.5-51.1); MEAN CORPUSCULAR HEMOGLOBIN 31 pg (27-31); MEAN CORPUSCULAR HGB CONC 35 g/dL (33-37); MEAN CORPUSCULAR VOLUME 89.1 fL (80-94); MONOCYTES # (AUTO) 0.5 K/uL (0.8-1.0); MONOCYTES % (AUTO) 7.2 % (1.7-9.3); NEUTROPHILS # (AUTO) 3.9 K/uL (1.8-7.7); NEUTROPHILS % (AUTO) 59.5 % (42.2-75.2); PLATELET COUNT (AUTO) 216 K/uL (140-450); RED BLOOD CELL COUNT(AUTO) 4.18 MIL/uL (4.20-5.40); RED CELL DISTRIBUTION WIDTH 13.7 % (11.6-13.7); WHITE BLOOD COUNT (AUTO) 6.6 K/uL (4.8-10.8)
[2019-01-08 12:38] LABS: ANION GAP 10.9 (8-16); CARBON DIOXIDE 28.1 mmol/L (21-32)
[2019-01-08] MEDS ORDERED: oxyCODONE 10 MG TABER PO ONE (13:25)
[2019-01-08 14:10] VITALS: BP 134/75
--- NOTE | 2019-01-08 14:10 | NUR ---
Patient discharged with v/s stable. Written and verbal after care instructions given and explained. Patient alert, oriented and verbalized understanding of instructions. Ambulatory with steady gait. All questions addressed prior to discharge. ID band removed. Patient advised to follow up with PMD. Rx of PERCOCET, CIPRODEX OTIC SOLUTION given. Patient educated on indication of medication including possible reaction and side effects. Opportunity to ask questions provided and answered. PT DAUGHTER BROUGHT HER TO HOSPITAL AND WILL PICK HER UP.
== END 2019-01-08 14:10 | disposition home or self-care (01) ==
LOC: MED 10:36
DX: H92.01 Otalgia, right ear (principal); R51 Headache; E11.65 Type 2 diabetes mellitus with hyperglycemia; H92.11 Otorrhea, right ear; R42 Dizziness and giddiness; K21.9 Gastro-esophageal reflux disease without esophagitis; Z79.4 Long term (current) use of insulin; Z88.6 Allergy status to analgesic agent
CPT/HCPCS: 36415; 70450; 80048; 85025; 85651; 99284

== ENCOUNTER 2019-01-23 09:36 | Emergency (ER) | payer MEDICAID ==
[~2019-01-23] VITALS: Ht 157.5 cm; Wt 87.1 kg
[2019-01-23 09:53] VITALS: BP 139/70
--- NOTE | 2019-01-23 10:20 | NUR ---
PT BIB SELF WITH C/O ABD PAIN AT RLQ SINCE LAST THREE DAYS. PT SSTAES TO HAVE NAUSEA AT THIS TIME. DENIES ANY FEVER, VOMITING, DIARRHEA, CONSTIPATION AT THIS TIME. HX OF DM . PT STATES, DRINKING OR EATING MAKES IT WORSE. PAIN 10/10 AT THIS TIME. ALLEGRIC TO INSULIN. PT RESING IN HER BED. AAOX4, RESPIRATION EVEN AND NON-LABORED. ER MD TO SEE THE PT. WILL CONTINUE TO MONITOR PT.
[2019-01-23] MEDS ORDERED: NACL 0.9% 1,000 ML IV SCH (11:17)
[2019-01-23] MEDS ORDERED: MORPHINE SULFATE 2 MG/ML SYR IVP ONE (11:20)
[2019-01-23] MEDS ORDERED: ONDANSETRON 4 MG/2 ML VIAL IVP ONE (11:20)
[2019-01-23 12:24] LABS: BASOPHILS % (AUTO) 0.5 % (0.0-2.0); EOSINOPHILS # (AUTO) 0.1 K/uL (0-0.4); EOSINOPHILS % (AUTO) 1.4 % (0.0-4.0); HEMATOCRIT 39.1 % (36-48); HEMOGLOBIN 13.5 g/dL (12.0-16.0); LYMPHOCYTES # (AUTO) 2.1 K/uL (2.5-16.5); LYMPHOCYTES % (AUTO) 30.4 % (20.5-51.1); MEAN CORPUSCULAR HEMOGLOBIN 31 pg (27-31); MEAN CORPUSCULAR HGB CONC 35 g/dL (33-37); MEAN CORPUSCULAR VOLUME 88.6 fL (80-94); MONOCYTES # (AUTO) 0.5 K/uL (0.8-1.0); MONOCYTES % (AUTO) 6.5 % (1.7-9.3); NEUTROPHILS # (AUTO) 4.3 K/uL (1.8-7.7); NEUTROPHILS % (AUTO) 61.2 % (42.2-75.2); PLATELET COUNT (AUTO) 219 K/uL (140-450); RED BLOOD CELL COUNT(AUTO) 4.42 MIL/uL (4.20-5.40); RED CELL DISTRIBUTION WIDTH 13.6 % (11.6-13.7)
[2019-01-23 12:35] LABS: ANION GAP 12.5 (8-16); CARBON DIOXIDE 24.2 mmol/L (21-32); CREATININE 0.8 mg/dL (0.6-1.3); POTASSIUM 3.7 mmol/L (3.5-5.1)
[2019-01-23 12:43] LABS: ALBUMIN 3.7 g/dL (3.4-5.0); TOTAL BILIRUBIN 0.3 mg/dL (0.0-1.0)
--- NOTE | 2019-01-23 14:00 | NUR ---
CHECKED ON PT. HELPED HER TO GO RESTROOM. NO DISTRESS NOTED, PT RESTING COMFORTABLY IN HER BED. WILL CONTINUE TO MONITOR PT.
[2019-01-23] MEDS ORDERED: ACETAMINOPHEN 325 MG TAB PO ONE (15:05)
[2019-01-23 15:30] VITALS: BP 143/86
[2019-01-23 16:25] LABS: BILIRUBIN,URINE NEGATIVE (NEGATIVE); BLOOD, URINE NEGATIVE (NEGATIVE); COLOR,URINE YELLOW (YELLOW); LEUKOCYTE ESTERASE ,URINE NEGATIVE (NEGATIVE); NITRITE, URINE NEGATIVE (NEGATIVE); UGLUCOSE 3+ (NEGATIVE)
[2019-01-23 16:29] LABS: APPEARANCE,URINE CLEAR (CLEAR)
== END 2019-01-23 15:30 | disposition home or self-care (01) ==
LOC: MED 09:36
DX: R10.11 Right upper quadrant pain (principal); R11.0 Nausea; R30.0 Dysuria; R51 Headache; E11.9 Type 2 diabetes mellitus without complications; K21.9 Gastro-esophageal reflux disease without esophagitis; Z79.4 Long term (current) use of insulin; Z88.8 Allergy status to other drugs, medicaments and biological substances
CPT/HCPCS: 36415; 76705; 80053; 81003; 81025; 82150; 83690; 85025; 96374; 96375; 99284; J2270; J2405; J7030; Q0092

== ENCOUNTER 2019-02-27 13:57 | Emergency (ER) | payer MEDICAID ==
[~2019-02-27] VITALS: Ht 157.5 cm; Wt 78.0 kg
[2019-02-27 14:12] VITALS: BP 145/74
[2019-02-27] MEDS ORDERED: KETOROLAC 60 MG/2 ML VIAL IM ONE (14:55)
[2019-02-27] MEDS ORDERED: MORPHINE SULFATE 4 MG/ML SYR IM ONE (15:25)
[2019-02-27 15:47] VITALS: BP 140/70
== END 2019-02-27 15:48 | disposition home or self-care (01) ==
LOC: MED 13:57
DX: R10.11 Right upper quadrant pain (principal); R11.2 Nausea with vomiting, unspecified; E11.9 Type 2 diabetes mellitus without complications; K21.9 Gastro-esophageal reflux disease without esophagitis; Z98.890 Other specified postprocedural states; Z79.4 Long term (current) use of insulin; Z88.8 Allergy status to other drugs, medicaments and biological substances
CPT/HCPCS: 81002; 81025; 96372; 99283; J1885; J2270

== ENCOUNTER 2019-04-02 08:09 | Emergency (ER) | payer MEDICAID ==
[~2019-04-02] VITALS: Ht 157.5 cm; Wt 86.6 kg
[2019-04-02 08:15] VITALS: BP 165/81
--- NOTE | 2019-04-02 08:15 | NUR ---
Pt taken to bed 4.
--- NOTE | 2019-04-02 08:17 | NUR ---
PT BIB SELF FOR HEADACHE X3 DAYS. PT STATES SHE HAS TAKEN IBUPROFEN BUT MAKES HER NAUSEOUS AND DOES NOT HELP THE PAIN. PT HAS BLURRY VISION, PUPILS PERRL. PT IS AWAKE AND ALERT, PERRL, NO FACIAL DROP OR SLURRED SPEECH. PT LAYING IN BED W/ HER HAND ON HER HEAD. PMH DM
[2019-04-02] MEDS ORDERED: MORPHINE SULFATE 4 MG/ML SYR IVP ONE (08:45)
[2019-04-02] MEDS ORDERED: NACL 0.9% 1,000 ML IV ONE (08:45)
[2019-04-02] MEDS ORDERED: ONDANSETRON 4 MG/2 ML VIAL IVP ONE (08:45)
--- NOTE | 2019-04-02 09:08 | NUR ---
PT TO CT SCAN VIA WHEELCHAIR.
--- NOTE | 2019-04-02 09:15 | NUR ---
PT RETURNED FROM CT AND AMBULATED TO RESTROOM
--- NOTE | 2019-04-02 09:26 | NUR ---
PT VERBALIZES PAIN RELIEF AND NO NAUSEA AT THIS TIME.
[2019-04-02] MEDS ORDERED: diphenhydrAMINE 50 MG/ML VIAL IVP ONE (10:10)
[2019-04-02] MEDS ORDERED: KETOROLAC 15 MG/ML VIAL IVP ONE (10:10)
[2019-04-02] MEDS ORDERED: METOCLOPRAMIDE 10 MG/2 ML INJ VIAL IVP ONE (10:10)
[2019-04-02 10:50] VITALS: BP 111/39
== END 2019-04-02 10:49 | disposition home or self-care (01) ==
LOC: MED 08:09
DX: G43.909 Migraine, unspecified, not intractable, without status migrainosus (principal); R11.2 Nausea with vomiting, unspecified; E11.9 Type 2 diabetes mellitus without complications; K21.9 Gastro-esophageal reflux disease without esophagitis; Z79.4 Long term (current) use of insulin; Z88.8 Allergy status to other drugs, medicaments and biological substances
CPT/HCPCS: 70450; 82948; 96361; 96374; 96375; 99284; J1200; J1885; J2270; J2405; J2765; J7030

== ENCOUNTER 2019-05-07 08:36 | Emergency (ER) | payer MEDICAID ==
[~2019-05-07] VITALS: Ht 153.7 cm; Wt 87.5 kg
[2019-05-07 08:56] VITALS: BP 143/68
--- NOTE | 2019-05-07 09:01 | NUR ---
PATIENT AMBULATED TO BED 06
--- NOTE | 2019-05-07 09:07 | NUR ---
PT C/O LEFT EAR PAIN W/ CLEAR DRAINAGE X 1 WEEK. PATIENT STATES PAIN OF 10/10 AT THIS TIME; VSS; PATIENT POSITIONED FOR COMFORT; HOB ELEVATED; BEDRAILS UP X1; BED DOWN. ER MD MADE AWARE OF PT STATUS.
[2019-05-07 09:38] VITALS: BP 132/61
--- NOTE | 2019-05-07 09:38 | NUR ---
Patient discharged with v/s stable. Written and verbal after care instructions given and explained. Patient alert, oriented and verbalized understanding of instructions. Ambulatory with steady gait. All questions addressed prior to discharge. ID band removed. Patient advised to follow up with PMD. Rx of [place], Ciprodex Otic Suspension, and Penicillin given. Patient educated on indication of medication including possible reaction and side effects. Opportunity to ask questions provided and answered.
== END 2019-05-07 09:38 | disposition home or self-care (01) ==
LOC: MED 08:36
DX: H66.92 Otitis media, unspecified, left ear (principal); H60.92 Unspecified otitis externa, left ear; E11.9 Type 2 diabetes mellitus without complications; K21.9 Gastro-esophageal reflux disease without esophagitis; Z79.4 Long term (current) use of insulin; Z88.6 Allergy status to analgesic agent
CPT/HCPCS: 99283

== ENCOUNTER 2019-06-26 09:08 | Inpatient (IN) | payer MEDICAID ==
[~2019-06-26] VITALS: Ht 157.5 cm; Wt 86.2 kg
[2019-06-26 09:39] VITALS: BP 125/77
--- NOTE | 2019-06-26 09:48 | NUR ---
ASSISTED PT TO WAIT IN THE LOBBY.
--- NOTE | 2019-06-26 10:36 | NUR ---
PT AMBULATED TO BED 04.
--- NOTE | 2019-06-26 10:54 | NUR ---
53 Y/F PRESENTS TO ED WITH C/O R FACIAL/HEAD PAIN, PHOTOPHOBIA X 2 WEEKS. FACE IS SYMMETRICAL, B 2+ MUSCLE STRENGTH. RUQ ABD PAIN 10/10 X 1 WEEK, PT ALSO C/O N/V, DENIES DIARRHEA. PT C/O DIZZINESS. PT REPORTS DYSURIA YESTERDAY, SUBSIDED TODAY. LUNGS CLEAR THROUGHOUT. ABDOMEN SOFT AND NON TENDER. HX- HTN, DM ALLERGIES- NAPROXEN RX- INSULIN (R), REPORTS NOT TAKING BP MEDS
[2019-06-26] MEDS ORDERED: NACL 0.9% 500 ML IV ONE (11:06)
[2019-06-26] MEDS ORDERED: MORPHINE SULFATE 2 MG/ML SYR IVP ONE (11:10)
[2019-06-26] MEDS ORDERED: ONDANSETRON 4 MG/2 ML VIAL IVP ONE (11:10)
--- NOTE | 2019-06-26 11:28 | NUR ---
Ultrasound at bedside.
--- NOTE | 2019-06-26 12:08 | NUR ---
IV INSERTED AND LABS DRAWN BEDSIDE
[2019-06-26 12:26] LABS: BASOPHILS % (AUTO) 0.6 % (0.0-2.0); EOSINOPHILS % (AUTO) 0.7 % (0.0-4.0); HEMATOCRIT 44.3 % (36-48); LYMPHOCYTES # (AUTO) 2.7 K/uL (2.5-16.5); LYMPHOCYTES % (AUTO) 36.7 % (20.5-51.1); MEAN CORPUSCULAR HEMOGLOBIN 31 pg (27-31); MEAN CORPUSCULAR HGB CONC 34 g/dL (33-37); MEAN CORPUSCULAR VOLUME 92.6 fL (80-94); MONOCYTES # (AUTO) 0.3 K/uL (0.8-1.0); MONOCYTES % (AUTO) 4.5 % (1.7-9.3); NEUTROPHILS # (AUTO) 4.2 K/uL (1.8-7.7); NEUTROPHILS % (AUTO) 57.5 % (42.2-75.2); PLATELET COUNT (AUTO) 221 K/uL (140-450); RED BLOOD CELL COUNT(AUTO) 4.78 MIL/uL (4.20-5.40); RED CELL DISTRIBUTION WIDTH 13.3 % (11.6-13.7); WHITE BLOOD COUNT (AUTO) 7.4 K/uL (4.8-10.8)
[2019-06-26 12:44] LABS: ALBUMIN 3.8 g/dL (3.4-5.0); ANION GAP 13.1 (8-16); CARBON DIOXIDE 25.9 mmol/L (21-32); CREATININE 0.8 mg/dL (0.6-1.3); TOTAL BILIRUBIN 0.5 mg/dL (0.0-1.0)
--- NOTE | 2019-06-26 12:48 | NUR ---
PT REPORTS ITCHING FROM MORPHINE, DR. SOW MADE AWARE AND WILL ORDER BENADRYL.
[2019-06-26] MEDS ORDERED: diphenhydrAMINE 50 MG/ML VIAL IVP ONE (12:50)
[2019-06-26] MEDS ORDERED: NACL 0.9% 1,000 ML IV SCH (12:56)
[2019-06-26] MEDS ORDERED: MORPHINE SULFATE 2 MG/ML SYR IVP PRN (13:00)
[2019-06-26] MEDS ORDERED: HYDROcodone/APAP 5/325 MG 1 TAB TAB PO PRN (13:00)
[2019-06-26] MEDS ORDERED: ACETAMINOPHEN 325 MG TAB PO PRN (13:00)
[2019-06-26] MEDS ORDERED: DOCUSATE SODIUM 100 MG GELCAP PO PRN (13:00)
[2019-06-26] MEDS ORDERED: fentaNYL 0.05 MG/ML VIAL IVP ONE (13:05)
[2019-06-26] MEDS ORDERED: DEXTROSE 50% 50 ML SYR IVP PRN (13:50)
[2019-06-26 13:59] LABS: PHOSPHORUS 2.7 mg/dL (2.5-4.9); THYROID STIMULATING HORMONE 0.9 uIU/mL (0.34-3.74)
[2019-06-26 14:00] VITALS: BP 114/46
--- NOTE | 2019-06-26 14:00 | NUR ---
Patient will be admitted to care of DR. MAYO. Admited to MED SURG. Will go to room 112A. Belongings list completed. Report to IVÁN HAYDEN.
--- NOTE | 2019-06-26 14:00 | NUR ---
RECEIVE PT FROM ER NURSE, PT AMBULATED INTO BED WITH STEADY GAIT, PT IS STABLE, NO SIGNS OF DISTRESS NOTED, PT IS STABLE, UPDATE WHITEBOARD, INTRODUCE PT TO ROOM AND EXPLAINED CALL LIGHT, PT VERBALIZE UNDERSTANDING, CALL LIGHT WITHIN REACH.
--- NOTE | 2019-06-26 14:09 | NUR ---
MRSA NARES SWAB TAKEN TO THE LAB.
--- NOTE | 2019-06-26 14:10 | NUR ---
NADR 11/03 PAIN
[2019-06-26] MEDS: LACTOBACILLUS RHAMNOSUS GG 1 EACH CAP PO SCH (14:29)
[2019-06-26] MEDS: DEXT 5% /NACL 0.9% 1,000 ML IV SCH ×2 (14:30→22:56)
[2019-06-26] MEDS ORDERED: SUMAtriptan 25 MG TAB PO SCH (15:00)
[2019-06-26] MEDS ORDERED: ONDANSETRON 4 MG/2 ML VIAL IM/IVP PRN (15:00)
--- NOTE | 2019-06-26 15:41 | NUR ---
DC PLANNIN YRS OLD FEMALE PT WAS ADMITTED FROM HOME WITH A DX OF ACALCULOUS CHOLECYSTITIS. PT HAS A HX OF DM, RENAL STONE ULTRASOUND OF ABDOMEN SHOWED NON- SPECIFIC INFLAMMATION OF THE GALLBLADDER . CT OF ABDOMEN ORDERED. ADMINISTERED IV MORPHINE FOR PAIN , CONSIDER HIDA SCAN BLOOD CULTURE PENDING . ADMINISTERED IVF GI CONSULT WITH DR SAN. DC PLAN TO GO HOME WHEN STABLE CM TO FOLLOW.
[2019-06-26 16:06] LABS: APPEARANCE,URINE CLEAR (CLEAR); BILIRUBIN,URINE NEGATIVE (NEGATIVE); BLOOD, URINE NEGATIVE (NEGATIVE); COLOR,URINE YELLOW (YELLOW); LEUKOCYTE ESTERASE ,URINE NEGATIVE (NEGATIVE); NITRITE, URINE NEGATIVE (NEGATIVE); PH,URINE 6.5 (5.0-9.0); UGLUCOSE 3+ (NEGATIVE)
[2019-06-26 16:11] LABS: BARBITURATE, URINE NEG. ng/ml (NEG <=200); BENZODIAZEPINE, URINE NEG. ng/mL (NEG <=200); CANNABINOID, URINE NEG. ng/mL (NEG <=50); COCAINE, URINE NEG. ng/mL (NEG <=300); OPIATE, URINE NEG. ng/mL (NEG <=2000); PHENCYCLIDINE SCREEN,URINE NEG. ng/mL (NEG <=25)
[2019-06-26] MEDS: BLOOD GLUCOSE MONITORING 1 DEV DEV FS SCH ×2 (16:30→20:53)
[2019-06-26] MEDS ORDERED: AMPICILLIN/SULBACTAM 3 GM in NACL 0.9% 100 ML IV SCH (18:00)
[2019-06-26] MEDS ORDERED: diphenhydrAMINE 50 MG/ML VIAL IVP SCH (18:50)
--- NOTE | 2019-06-26 18:52 | NUR ---
GAVE PT BENADRYL FOR ITCHING DUE TO AMPICILLING ANTIBIOTIC REACTION, PT IS REPORTING ITCHINESS AND HEADACHE, PT JOSEPH NOTIFIED AND ORDERED BENADRYL. CALL LIGHT WITHIN REACH.
--- NOTE | 2019-06-26 18:55 | NUR ---
PT OFF UNIT FOR NUCLEAR MED, PT IS STABLE, WILL ENDORSE TO NIGHT NURSE FOR CONTINUITY OF CARE.
--- NOTE | 2019-06-26 19:06 | NUR ---
PT OFF THE UNIT FOR NUCLEAR MED, PT IS STABLE, WHEELED OUT IN WHEELCHAIR,
--- NOTE | 2019-06-26 19:07 | NUR ---
PT OFF THE UNIT FOR HIDA SCAN. RECEIVED REPORT FROM DAY SHIFT NURSE. WILL ASSESS PT WHEN COMING BACK.
[2019-06-26] MEDS: MORPHINE SULFATE 2 MG/ML SYR IVP PRN (20:42)
[2019-06-26] MEDS: metroNIDAZOLE 500 MG/NS PREMIX 100 ML IV SCH (20:42)
--- NOTE | 2019-06-26 20:53 | NUR ---
PT CAME BACK TO UNIT. HIDA SCAN WAS NOT DONE YET D/T PT C/O N/V, DIZZINESS, AND PAIN. GIVEN ZOFRAN, AND MORPHINE. GIVEN FLAGYL AND HEPARIN MD ORDERED. BS CHECKED, 208, GIVEN INSULIN SLIDING SCALE. PT TOLERATED WELL.
[2019-06-26] MEDS: INSULIN LISPRO SLIDING SCALE 100 UNITS/ML VIAL SUBQ PRN (20:59)
--- NOTE | 2019-06-26 21:30 | NUR ---
PT FEEL BETTER, OFF THE UNIT FOR HIDA SCAN BY WHEELCHAIR.
--- NOTE | 2019-06-26 21:45 | NUR ---
PT CAME BACK FROM HIDA SCAN.
[2019-06-27] VITALS: BP 96/48
--- NOTE | 2019-06-27 00:01 | NUR ---
VS CHECKED, WITHIN PT'S BASELINE. WILL CONTINUE TO MONITOR.
[2019-06-27] MEDS: MORPHINE SULFATE 2 MG/ML SYR IVP PRN ×2 (02:18→15:33)
--- NOTE | 2019-06-27 02:18 | NUR ---
PT C/O 02/03 ABD PAIN. GIVEN MORPHINE MD ORDERED. WILL CONTINUE TO MONITOR.
[2019-06-27] MEDS: metroNIDAZOLE 500 MG/NS PREMIX 100 ML IV SCH ×2 (04:12→12:31)
--- NOTE | 2019-06-27 04:12 | NUR ---
GIVEN FLAGYL MD ORDERED. PT TOLERATED WELL.
[2019-06-27] MEDS: BLOOD GLUCOSE MONITORING 1 DEV DEV FS SCH ×3 (06:00→17:23)
[2019-06-27] MEDS: INSULIN LISPRO SLIDING SCALE 100 UNITS/ML VIAL SUBQ PRN ×3 (06:03→17:40)
--- NOTE | 2019-06-27 06:03 | NUR ---
BS CHECKED, 185, GIVEN INSULIN MD ORDERED. PT TOLERATED WELL.
--- NOTE | 2019-06-27 06:41 | NUR ---
PT SLEEPING IN BED COMFORTABLY. NO ACUTE DISTRESS NOTED. WILL ENDORSE PT TO DAY SHIFT NURSE FOR CONTINUOUS CARE.
[2019-06-27 06:44] LABS: BASOPHILS % (AUTO) 0.6 % (0.0-2.0); EOSINOPHILS # (AUTO) 0.1 K/uL (0-0.4); EOSINOPHILS % (AUTO) 1.8 % (0.0-4.0); HEMATOCRIT 39.8 % (36-48); HEMOGLOBIN 13.4 g/dL (12.0-16.0); LYMPHOCYTES # (AUTO) 2.9 K/uL (2.5-16.5); LYMPHOCYTES % (AUTO) 44.9 % (20.5-51.1); MEAN CORPUSCULAR HEMOGLOBIN 31 pg (27-31); MEAN CORPUSCULAR HGB CONC 34 g/dL (33-37); MEAN CORPUSCULAR VOLUME 93.3 fL (80-94); MONOCYTES # (AUTO) 0.5 K/uL (0.8-1.0); MONOCYTES % (AUTO) 7.5 % (1.7-9.3); NEUTROPHILS # (AUTO) 2.9 K/uL (1.8-7.7); NEUTROPHILS % (AUTO) 45.2 % (42.2-75.2); PLATELET COUNT (AUTO) 212 K/uL (140-450); RED BLOOD CELL COUNT(AUTO) 4.27 MIL/uL (4.20-5.40); RED CELL DISTRIBUTION WIDTH 13.3 % (11.6-13.7); WHITE BLOOD COUNT (AUTO) 6.4 K/uL (4.8-10.8)
--- NOTE | 2019-06-27 07:20 | NUR ---
RECEIVED PT FROM SET UP MECHANIC HEADING MACHINES NURSE, ALEXI, PT IS AWAKE AND ALERT AND ORIENTEDX4, LYING ON THE BED WITH SIDE RAILS UP AND CALL LIGHT WITHIN REACH, PERIPHERAL LINE ON THE RT AC G. 20 WITH D5 NS INFUSING AT 110ML/HR, PT C/O PAIN RATE OF 4/10 AND WILL MEDICATE PT, ON ROOM AIR AND NO SIGN OF DISTRESS NOTED. WILL MONITOR PT.
[2019-06-27 07:42] LABS: ANION GAP 11.4 (8-16); CARBON DIOXIDE 24.4 mmol/L (21-32); CREATININE 0.8 mg/dL (0.6-1.3); POTASSIUM 3.8 mmol/L (3.5-5.1)
[2019-06-27 07:53] LABS: ALBUMIN 3.1 g/dL (3.4-5.0); BILIRUBIN,DIRECT 0.1 mg/dL (0.0-0.3); TOTAL BILIRUBIN 0.3 mg/dL (0.0-1.0)
[2019-06-27 07:55] LABS: PHOSPHORUS 3.1 mg/dL (2.5-4.9)
[2019-06-27 07:56] LABS: CHOL/HDL RATIO 4.6 (1-4.5)
[2019-06-27 08:00] VITALS: BP 104/50
[2019-06-27] MEDS: DEXT 5% /NACL 0.9% 1,000 ML IV SCH ×2 (08:02→15:40)
[2019-06-27] MEDS: LACTOBACILLUS RHAMNOSUS GG 1 EACH CAP PO SCH (09:42)
--- NOTE | 2019-06-27 09:44 | NUR ---
PT WAS GIVEN AM SCHEDULED MEDICATIONS NOW AND TOLERATED IT. WILL MONITOR PT.
--- NOTE | 2019-06-27 10:24 | NUR ---
PATIENT HAS BEEN SCREENED AND CATEGORIZED MODERATE NUTRITION RISK. PATIENT WILL BE SEEN WITHIN 3-5 DAYS OF ADMISSION. 06/29/19 - 07/01/19 TERI TORRES MBA, RD
[2019-06-27] MEDS ORDERED: MECLIZINE 25 MG TAB PO PRN (11:05)
--- NOTE | 2019-06-27 12:31 | NUR ---
PT WAS GIVEN FLAGYL IVPB NOW, WILL MONITOR PT.
--- NOTE | 2019-06-27 15:33 | NUR ---
PT C/O ,PAIN RATE OF 9/10 AT THE BACK AND PAIN MEDICATION WAS GIVEN VIA IV PUSH, BP IS 134/59, PULSE IS 74, , WILL RE-ASSESS PAIN AND MONITOR PT.
--- NOTE | 2019-06-27 15:40 | NUR ---
A NEW IV FLUID BAG WAS STARTED TO PT NOW.
[2019-06-27] MEDS ORDERED: METF1000 PO (15:49)
[2019-06-27] MEDS ORDERED: IBUP-2218 PO (15:49)
[2019-06-27 16:00] VITALS: BP 147/66
[2019-06-27] MEDS ORDERED: DOCU-300 PO (16:02)
--- NOTE | 2019-06-27 17:40 | NUR ---
PT WAS GIVEN 4 UNITS INSULIN FOR THE BLOOD GLUCOSE OF 239, WILL MONITOR PT.
--- NOTE | 2019-06-27 19:05 | NUR ---
DISCHARGED PT TO HOME WITH FAMILY, DISCHARGED TEACHINGS AND INSTRUCTIONS GIVEN TO PT AND PT VERBALIZED UNDERSTANDING, INTERPRETED BY METAL CHECKER#[id number], IV LINE AND ARM BAND REMOVED, PT IS STABLE AT THIS TIME.
== END 2019-06-27 19:05 | disposition home or self-care (01) ==
LOC: MED 09:08 → MTU 12:56
PROVIDERS: ADMIT General Practice; ATTEND General Practice
DX: K81.9 Cholecystitis, unspecified (principal); E44.0 Moderate protein-calorie malnutrition; E11.65 Type 2 diabetes mellitus with hyperglycemia; K21.9 Gastro-esophageal reflux disease without esophagitis; E66.9 Obesity, unspecified; G43.909 Migraine, unspecified, not intractable, without status migrainosus; J98.11 Atelectasis; I10 Essential (primary) hypertension; Z87.442 Personal history of urinary calculi; Z79.4 Long term (current) use of insulin; Z88.6 Allergy status to analgesic agent; Z79.899 Other long term (current) drug therapy; Z68.34 Body mass index [BMI] 34.0-34.9, adult
CPT/HCPCS: 36415; 71045; 74018; 76705; 78445; 80048; 80053; 80076; 80305; 81003; 81025; 82948; 83036; 83605; 83690; 83735; 83880; 84100; 84134; 84443; 85025; 85610; 85730; 87040; 87081; 96374; 96375; 99285; A9510; J0295; J1200; J1644; J1815; J2270; J2405; J3010; J3490; J7042; J8597; Q0092

== ENCOUNTER 2019-10-09 09:05 | Emergency (ER) | payer MEDICAID ==
[~2019-10-09] VITALS: Ht 152.4 cm; Wt 90.7 kg
[~2019-10-09 09:05] MED LIST changes: +DOCU-300 PO; +IBUP-2218 PO
[2019-10-09 09:07] VITALS: BP 155/99
--- NOTE | 2019-10-09 09:12 | NUR ---
PT AMBULATED TO BED 7.
--- NOTE | 2019-10-09 09:15 | NUR ---
53/F WITH HX MIGRAINES STATES LEFT EAR PAIN AND WARE X 2 WEEKS. STATES EAR PAIN WORSE THAN WARE PAIN. STATES MILD NAUSEA AND DIZZINESS. DENIES VISION CHANGES. STATES PHOTOPHOBIA. REPORTS SIMILAR WARE 5 MONTHS AGO. SAW DOCTOR YESTER WITH RX OF TYLENOL AND UNSPECIFIED EAR DROPS TO NO RELIEF. AMB STEADY GAIT. FULL CLEAR SPEECH. HX- MIGRAINES, DM
--- NOTE | 2019-10-09 09:20 | NUR ---
Dr. Brandt evaluating pt at bedside.
--- NOTE | 2019-10-09 09:24 | NUR ---
CALLED PHARMACY TO BRING ORDERED FIORICET--NOT STOCKED IN ER OMNICELL.
[2019-10-09] MEDS ORDERED: APAP/BUTAL/CAFF 325/50/40 MG 1 TAB PO ONE (09:25)
[2019-10-09] MEDS ORDERED: cloNIDine 0.1 MG TAB PO ONE (09:30)
[2019-10-09 10:06] VITALS: BP 136/68
--- NOTE | 2019-10-09 10:07 | NUR ---
Patient discharged with v/s stable. Written and verbal after care instructions given and explained. Patient alert, oriented and verbalized understanding of instructions. Ambulatory with steady gait. All questions addressed prior to discharge. ID band removed. Patient advised to follow up with PMD. Rx of FLORICET given. Patient educated on indication of medication including possible reaction and side effects. Opportunity to ask questions provided and answered.
== END 2019-10-09 10:07 | disposition home or self-care (01) ==
LOC: MED 09:05
DX: G43.909 Migraine, unspecified, not intractable, without status migrainosus (principal); I10 Essential (primary) hypertension; H60.92 Unspecified otitis externa, left ear; E11.9 Type 2 diabetes mellitus without complications; K21.9 Gastro-esophageal reflux disease without esophagitis; Z79.4 Long term (current) use of insulin; Z79.899 Other long term (current) drug therapy; Z88.8 Allergy status to other drugs, medicaments and biological substances
CPT/HCPCS: 99283

== ENCOUNTER 2019-11-01 11:29 | Emergency (ER) | payer MEDICAID ==
[~2019-11-01] VITALS: Ht 157.5 cm; Wt 81.6 kg
[2019-11-01 11:36] VITALS: BP 150/89
--- NOTE | 2019-11-01 11:43 | NUR ---
PT AMBULATED TO ROOM 2 WITH STEADY GAIT.
--- NOTE | 2019-11-01 11:45 | NUR ---
Patient taken to bed 1.
[2019-11-01] MEDS ORDERED: ONDANSETRON 4 MG ODT PO ONE (12:00)
[2019-11-01] MEDS ORDERED: MORPHINE SULFATE 4 MG/ML SYR IM ONE (12:00)
--- NOTE | 2019-11-01 12:01 | NUR ---
PT PRESENTS TO THE ER C/O LEFT FLANK PAIN RADIATING TO LEFT-SIDED ABDOMEN FOR ONE WEEK. DENIES FEVER, CHILLS, COUGH, URGENCY, FREQUENCY, BURNING SENSATION OF URINATION, HEMATURIA, DYSURIA, CP, COUGH, SOB, N/V/D. ABDOMEN SOFT AND DISTENTED. TENDERNESS ON PALPATION ON LEFT SIDED ABDOMEN. LEFT CVAT NOTICED. SKIN IS PINK/WARM/DRY; AAOX4 WITH EVEN AND STEADY GAIT; LUNGS CLEAR BL; HR EVEN AND REGULAR; PATIENT STATES PAIN OF 10/10 AT THIS TIME; VSS; PATIENT POSITIONED FOR COMFORT; HOB ELEVATED; BEDRAILS UP X1; BED DOWN. ER MD MADE AWARE OF PT STATUS.
[2019-11-01 13:24] LABS: BASOPHILS % (AUTO) 0.5 % (0.0-2.0); EOSINOPHILS # (AUTO) 0.1 K/uL (0-0.4); EOSINOPHILS % (AUTO) 1.2 % (0.0-4.0); HEMATOCRIT 39.6 % (36-48); HEMOGLOBIN 13.6 g/dL (12.0-16.0); LYMPHOCYTES # (AUTO) 2.4 K/uL (2.5-16.5); LYMPHOCYTES % (AUTO) 33.3 % (20.5-51.1); MEAN CORPUSCULAR HEMOGLOBIN 32 pg (27-31); MEAN CORPUSCULAR HGB CONC 34 g/dL (33-37); MEAN CORPUSCULAR VOLUME 91.7 fL (80-94); MONOCYTES # (AUTO) 0.4 K/uL (0.8-1.0); MONOCYTES % (AUTO) 5.4 % (1.7-9.3); NEUTROPHILS # (AUTO) 4.3 K/uL (1.8-7.7); NEUTROPHILS % (AUTO) 59.6 % (42.2-75.2); PLATELET COUNT (AUTO) 208 K/uL (140-450); RED BLOOD CELL COUNT(AUTO) 4.32 MIL/uL (4.20-5.40); RED CELL DISTRIBUTION WIDTH 13.3 % (11.6-13.7); WHITE BLOOD COUNT (AUTO) 7.2 K/uL (4.8-10.8)
--- NOTE | 2019-11-01 13:28 | NUR ---
Patient taken to CT via w/c.
--- NOTE | 2019-11-01 13:39 | NUR ---
Pt is back from CT scan. VSS.
[2019-11-01 13:40] LABS: ALBUMIN 3.5 g/dL (3.4-5.0); ANION GAP 10.1 (8-16); CARBON DIOXIDE 29.1 mmol/L (21-32); CREATININE 0.9 mg/dL (0.6-1.3); POTASSIUM 4.2 mmol/L (3.5-5.1); TOTAL BILIRUBIN 0.4 mg/dL (0.0-1.0)
[2019-11-01 14:21] VITALS: BP 120/60
--- NOTE | 2019-11-01 14:21 | NUR ---
Patient discharged with v/s stable. Written and verbal after care instructions given and explained. Patient alert, oriented and verbalized understanding of instructions. Ambulatory with steady gait. All questions addressed prior to discharge. ID band removed. Patient advised to follow up with PMD. Rx of TRAMADOL,FLEXERIL given. Patient educated on indication of medication including possible reaction and side effects. Opportunity to ask questions provided and answered.
== END 2019-11-01 14:21 | disposition home or self-care (01) ==
LOC: MED 11:29
DX: S39.011A Strain of muscle, fascia and tendon of abdomen, initial encounter (principal); E11.9 Type 2 diabetes mellitus without complications; K21.9 Gastro-esophageal reflux disease without esophagitis; I10 Essential (primary) hypertension; Z88.2 Allergy status to sulfonamides; X58.XXXA Exposure to other specified factors, initial encounter; Z88.8 Allergy status to other drugs, medicaments and biological substances; Y93.89 Activity, other specified; Y92.89 Other specified places as the place of occurrence of the external cause; Y99.8 Other external cause status
CPT/HCPCS: 36415; 74176; 80053; 81002; 83690; 85025; 96372; 99284; J2270; Q0162

== ENCOUNTER 2019-12-24 14:38 | Emergency (ER) | payer MEDICAID ==
[~2019-12-24] VITALS: Ht 152.4 cm; Wt 88.9 kg
[2019-12-24 14:42] VITALS: BP 110/69
--- NOTE | 2019-12-24 14:45 | NUR ---
Pt ambulated to bed 9.
--- NOTE | 2019-12-24 14:57 | NUR ---
Patient being evaluated by Dr. Em at bedside.
[2019-12-24] MEDS ORDERED: MORPHINE SULFATE 4 MG/ML SYR IVP ONE (15:10)
[2019-12-24 15:15] LABS: BASOPHILS % (AUTO) 0.4 % (0.0-2.0); EOSINOPHILS # (AUTO) 0.1 K/uL (0-0.4); HEMATOCRIT 42.7 % (36-48); HEMOGLOBIN 14.5 g/dL (12.0-16.0); LYMPHOCYTES # (AUTO) 1.9 K/uL (2.5-16.5); MEAN CORPUSCULAR HEMOGLOBIN 32 pg (27-31); MEAN CORPUSCULAR HGB CONC 34 g/dL (33-37); MEAN CORPUSCULAR VOLUME 93.4 fL (80-94); MONOCYTES # (AUTO) 0.4 K/uL (0.8-1.0); MONOCYTES % (AUTO) 4.5 % (1.7-9.3); NEUTROPHILS # (AUTO) 5.7 K/uL (1.8-7.7); NEUTROPHILS % (AUTO) 70.1 % (42.2-75.2); PLATELET COUNT (AUTO) 205 K/uL (140-450); RED BLOOD CELL COUNT(AUTO) 4.57 MIL/uL (4.20-5.40); RED CELL DISTRIBUTION WIDTH 13.6 % (11.6-13.7); WHITE BLOOD COUNT (AUTO) 8.1 K/uL (4.8-10.8)
--- NOTE | 2019-12-24 15:21 | NUR ---
54 Y/O FEMALE BIB DAUGHTER C/O LOWER ABD PAIN RADIATING TO LEFT FLANK, 7/10 SHARP PAIN X1 WEEK. PT STATES SHE HAS BEEN TAKING TYLENOL FOR PAIN WITH NO RELIEF. STATES SHE IS NAUSEOUS, DENIES ANY VOMITING OR DIARRHEA. FLANK AREA IS VERY TENDER UPON PALPATION. ABD SOFT/ NON DISTENDED. DENIES ANY URINARY BURNING/FREQUENCY. AMBULATORY WITH STEADY GAIT. SKIN COOL/DRY. AAOX4. RESP EVEN AND UNLABORED. PMH: HTN. DM, GERD NKA
[2019-12-24 15:42] LABS: ANION GAP 13.5 (8-16); CARBON DIOXIDE 25.3 mmol/L (21-32); POTASSIUM 3.8 mmol/L (3.5-5.1); TOTAL BILIRUBIN 0.4 mg/dL (0.0-1.0)
[2019-12-24 16:31] VITALS: BP 108/64
--- NOTE | 2019-12-24 16:32 | NUR ---
Patient discharged with v/s stable. Written and verbal after care instructions given and explained. Patient alert, oriented and verbalized understanding of instructions. Ambulatory with steady gait. All questions addressed prior to discharge. ID band removed. Patient advised to follow up with PMD. Rx of CARAFATE,TYLENOL,PEPCID,COLACE,NORCO given. Patient educated on indication of medication including possible reaction and side effects. Opportunity to ask questions provided and answered.
== END 2019-12-24 16:32 | disposition home or self-care (01) ==
LOC: MED 14:38
DX: R10.9 Unspecified abdominal pain (principal); E11.9 Type 2 diabetes mellitus without complications; K21.9 Gastro-esophageal reflux disease without esophagitis; I10 Essential (primary) hypertension; Z98.890 Other specified postprocedural states; Z88.8 Allergy status to other drugs, medicaments and biological substances; Z79.899 Other long term (current) drug therapy; Z79.4 Long term (current) use of insulin
CPT/HCPCS: 36415; 74176; 80053; 81002; 81025; 83690; 85025; 96374; 99284; J2270

== ENCOUNTER 2020-01-22 08:31 | Emergency (ER) | payer MEDICAID ==
[~2020-01-22] VITALS: Ht 152.4 cm; Wt 88.9 kg
[2020-01-22 08:37] VITALS: BP 160/104
--- NOTE | 2020-01-22 08:42 | NUR ---
PT AMBULATED TO BED 4.
[2020-01-22] MEDS ORDERED: ONDANSETRON 4 MG ODT PO ONE (09:00)
[2020-01-22] MEDS ORDERED: APAP/BUTAL/CAFF 325/50/40 MG 1 TAB PO SCH (09:00)
--- NOTE | 2020-01-22 09:11 | NUR ---
PT BACK FROM CT
--- NOTE | 2020-01-22 09:13 | NUR ---
54 YEAR OLD FEMALE COMPLAINS OF LOWER BACK PAIN AND HEADACHE X TODAY IN MORNING. PT AOX4, BREATHING EVEN AND UNLABORED, SKIN WARM AND DRY. BED IN LOWEST POSITION, LOCKED, BED RAIL UPX1. NO DISTRESS NOTED.
--- NOTE | 2020-01-22 09:38 | NUR ---
PT START TO ITCH THROUGHOUT BODY, ERMD MADE AWARE
[2020-01-22] MEDS ORDERED: diphenhydrAMINE 50 MG/ML VIAL IM ONE (09:45)
--- NOTE | 2020-01-22 09:51 | NUR ---
PT STATES STILL HAS BAD HEADACHE, ERMD MADE AWARE
--- NOTE | 2020-01-22 09:52 | NUR ---
ERMD AT BEDSIDE
[2020-01-22] MEDS ORDERED: traMADol 50 MG TAB PO ONE (09:55)
--- NOTE | 2020-01-22 10:02 | NUR ---
UNABLE TO FIND PATIENT IN ER, MIRTA MADE AWARE
--- NOTE | 2020-01-22 10:26 | NUR ---
PT STILL NOT FOUND, PT ELOPED. ERMD AWARE, CHARGE NURSE AWARE
== END 2020-01-22 10:26 | disposition left against medical advice (07) ==
LOC: MED 08:31
DX: R51 Headache (principal); M54.9 Dorsalgia, unspecified; E11.9 Type 2 diabetes mellitus without complications; K21.9 Gastro-esophageal reflux disease without esophagitis; I10 Essential (primary) hypertension; Z88.2 Allergy status to sulfonamides; Z88.6 Allergy status to analgesic agent; Z88.8 Allergy status to other drugs, medicaments and biological substances
CPT/HCPCS: 70450; 96372; 99284; J1200; Q0162

== ENCOUNTER 2020-02-12 14:33 | Emergency (ER) | payer MEDICAID ==
[~2020-02-12] VITALS: Ht 152.4 cm; Wt 87.5 kg
[2020-02-12 14:41] VITALS: BP 160/81
--- NOTE | 2020-02-12 14:58 | NUR ---
54 YEAR OLD FEMALE COMPLAINS OF LOWER BACK PAIN AND LEFT THUMB PAIN AFTER FALLING X 3 DAYS AGO. PT DENIES ANY OTHER COMPLAINTS. PT AOX4, BREATHING EVEN AND UNLABORED, SKIN WARM AND DRY. BED IN LOWEST POSITION, LOCKED, BED RAIL UPX1. PMH - DM2 ALLERGIES - IBUPROFEN, NAPROXEN
--- NOTE | 2020-02-12 15:00 | NUR ---
XRAY AT BEDSIDE
[2020-02-12] MEDS ORDERED: MORPHINE SULFATE 4 MG/ML SYR IM ONE (15:35)
[2020-02-12 16:08] VITALS: BP 123/73
--- NOTE | 2020-02-12 16:08 | NUR ---
Patient discharged with v/s stable. Written and verbal after care instructions about trigger finger and lower back strain given and explained. Patient alert, oriented and verbalized understanding of instructions. Ambulatory with steady gait. All questions addressed prior to discharge. ID band removed. Patient advised to follow up with PMD. Rx of acetaminophen and lidoderm 5% patch given. Patient educated on indication of medication including possible reaction and side effects. Opportunity to ask questions provided and answered.
== END 2020-02-12 16:08 | disposition home or self-care (01) ==
LOC: MED 14:33
DX: S63.602A Unspecified sprain of left thumb, initial encounter (principal); S39.012A Strain of muscle, fascia and tendon of lower back, initial encounter; M65.312 Trigger thumb, left thumb; E11.9 Type 2 diabetes mellitus without complications; Z88.6 Allergy status to analgesic agent; Z88.2 Allergy status to sulfonamides; Z79.899 Other long term (current) drug therapy; Z79.84 Long term (current) use of oral hypoglycemic drugs; W18.39XA Other fall on same level, initial encounter; Y93.89 Activity, other specified; Y92.89 Other specified places as the place of occurrence of the external cause; Y99.8 Other external cause status
CPT/HCPCS: 29130; 73130; 96372; 99283; J2270

== ENCOUNTER 2020-05-04 12:25 | Emergency (ER) | payer MEDICAID ==
[~2020-05-04] VITALS: Ht 157.5 cm; Wt 88.2 kg
[2020-05-04 12:38] VITALS: BP 138/73
--- NOTE | 2020-05-04 13:24 | NUR ---
54/F BIB SELF C/O [id number], NAUSEA X 1 WEEK. BLOOD SUGAR 239 AT THIS TIME. PMH: DM.
--- NOTE | 2020-05-04 13:51 | NUR ---
PATIENT LEFT WITHOUT BEING SEEN BY . NO FURTHER CARE PROVIDED FOR PATIENT.
== END 2020-05-04 13:51 | disposition left against medical advice (07) ==
LOC: MED 12:25
DX: R51.9 Headache, unspecified (principal); Z53.21 Procedure and treatment not carried out due to patient leaving prior to being seen by health care provider

== ENCOUNTER 2020-05-21 10:36 | Emergency (ER) | payer MEDICAID ==
--- NOTE | 2020-05-21 12:51 | NUR ---
CALLED PT FOR TRIAGE NO ANSWER.
== END 2020-05-21 12:51 | disposition left against medical advice (07) ==
LOC: MED 10:36
DX: Z53.21 Procedure and treatment not carried out due to patient leaving prior to being seen by health care provider (principal); M54.9 Dorsalgia, unspecified

== ENCOUNTER 2020-12-08 17:18 | Emergency (ER) | payer MEDICAID ==
[~2020-12-08] VITALS: Ht 154.9 cm; Wt 72.6 kg
--- NOTE | 2020-12-08 17:23 | NUR ---
Patient ambulated with steady gait to bed 7.
[2020-12-08 17:30] VITALS: BP 157/80
--- NOTE | 2020-12-08 17:30 | NUR ---
55 Y/O FEMALE C/O LT EAR PAIN X2 WEEKS. STATES 9/10 PAIN. DENIES ANY DISCHARGE OR RECENT FEVER. TENDER TO TOUCH. RX: TYLENOL WITH NO RELIEF MEDHX:DM, ANXIETY ALLERIGES: IBUPROFEN, NAPROXEN, SUMATRIPTAN
--- NOTE | 2020-12-08 17:36 | NUR ---
DR FAN AT BEDSIDE EXAMINING PT
[2020-12-08] MEDS ORDERED: OFLO5SOL27 LEFT EAR (17:52)
[2020-12-08] MEDS ORDERED: CIPR500T4 PO (17:52)
[2020-12-08] MEDS ORDERED: ACET-8386 PO (17:52)
[2020-12-08] MEDS ORDERED: HYDROcodone/APAP 5/325 MG 1 TAB TAB PO ONE (17:55)
[2020-12-08] MEDS ORDERED: HYDROcodone/APAP 5/325 MG 1 TAB TAB ONE (17:58)
[2020-12-08 18:03] VITALS: BP 157/80
--- NOTE | 2020-12-08 18:03 | NUR ---
Patient discharged with v/s stable. Written and verbal after care instructions given and explained. Patient alert, oriented and verbalized understanding of instructions. Ambulatory with steady gait. All questions addressed prior to discharge. ID band removed. Patient advised to follow up with PMD. Rx of [place], Cipro and Ofloxacin OT electronically faxed to [facility] Gabreil Cantu per patient request. Patient educated on indication of medication including possible reaction and side effects. Opportunity to ask questions provided and answered.
== END 2020-12-08 18:03 | disposition home or self-care (01) ==
LOC: MED 17:18
DX: H60.92 Unspecified otitis externa, left ear (principal); E11.9 Type 2 diabetes mellitus without complications; F41.9 Anxiety disorder, unspecified; Z88.2 Allergy status to sulfonamides; Z88.8 Allergy status to other drugs, medicaments and biological substances; Z88.6 Allergy status to analgesic agent
CPT/HCPCS: 99283

== ENCOUNTER 2021-09-16 12:45 | Emergency (ER) | payer MEDICAID ==
[~2021-09-16] VITALS: Ht 160 cm; Wt 83.9 kg
[~2021-09-16 12:45] MED LIST changes: +ACET-8386 PO; +CIPR500T4 PO; +IBUP-2213 PO; +LANTUS SUBQ; +OFLO5SOL27 LEFT EAR
[2021-09-16 12:53] VITALS: BP 132/88
[2021-09-16 13:26] LABS: BASOPHILS % (AUTO) 0.6 % (0.0-2.0); EOSINOPHILS # (AUTO) 0.2 K/uL (0-0.4); EOSINOPHILS % (AUTO) 2.1 % (0.0-4.0); HEMATOCRIT 40.1 % (36-48); HEMOGLOBIN 13.9 g/dL (12.0-16.0); LYMPHOCYTES # (AUTO) 2.9 K/uL (2.5-16.5); MEAN CORPUSCULAR HEMOGLOBIN 32 pg (27-31); MEAN CORPUSCULAR HGB CONC 35 g/dL (33-37); MEAN CORPUSCULAR VOLUME 92.1 fL (80-94); MONOCYTES # (AUTO) 0.5 K/uL (0.8-1.0); MONOCYTES % (AUTO) 6.5 % (1.7-9.3); NEUTROPHILS # (AUTO) 3.7 K/uL (1.8-7.7); NEUTROPHILS % (AUTO) 50.8 % (42.2-75.2); PLATELET COUNT (AUTO) 225 K/uL (140-450); RED BLOOD CELL COUNT(AUTO) 4.35 MIL/uL (4.20-5.40); RED CELL DISTRIBUTION WIDTH 13.2 % (11.6-13.7); WHITE BLOOD COUNT (AUTO) 7.2 K/uL (4.8-10.8)
[2021-09-16 13:44] LABS: ALBUMIN 3.5 g/dL (3.4-5.0); CARBON DIOXIDE 25.9 mmol/L (21-32); CREATININE 0.8 mg/dL (0.6-1.3); TOTAL BILIRUBIN 0.4 mg/dL (0.0-1.0)
[2021-09-16] MEDS: MORPHINE SULFATE 4 MG/ML SYR IVP ONE (13:46)
[2021-09-16] MEDS: ONDANSETRON 4 MG/2 ML VIAL IVP ONE (13:46)
[2021-09-16] MEDS: NACL 0.9% 1,000 ML IV SCH (13:47)
[2021-09-16 13:58] LABS: ANION GAP 11.8 (8-16); POTASSIUM 3.7 mmol/L (3.5-5.1)
[2021-09-16 15:40] LABS: APPEARANCE,URINE CLEAR (CLEAR); BILIRUBIN,URINE NEGATIVE (NEGATIVE); BLOOD, URINE TRACE-I (NEGATIVE); COLOR,URINE YELLOW (YELLOW); LEUKOCYTE ESTERASE ,URINE NEGATIVE (NEGATIVE); NITRITE, URINE NEGATIVE (NEGATIVE); PH,URINE 6.5 (5.0-9.0); UGLUCOSE 1+ (NEGATIVE)
[2021-09-16] MEDS ORDERED: ACET-8386 PO (15:54)
[2021-09-16] MEDS ORDERED: ONDA-188 PO (15:54)
[2021-09-16 16:08] VITALS: BP 123/70
== END 2021-09-16 16:08 | disposition home or self-care (01) ==
LOC: MED 12:45
DX: R10.9 Unspecified abdominal pain (principal); E11.9 Type 2 diabetes mellitus without complications; Z79.4 Long term (current) use of insulin; Z79.899 Other long term (current) drug therapy; Z88.6 Allergy status to analgesic agent; Z88.8 Allergy status to other drugs, medicaments and biological substances
CPT/HCPCS: 36415; 76770; 80053; 81003; 83690; 85025; 96361; 96374; 96375; 99284; J2270; J2405; J7030; Q0092

== ENCOUNTER 2021-10-21 10:56 | Emergency (ER) | payer MEDICAID ==
[~2021-10-21] VITALS: Ht 157.5 cm; Wt 83.9 kg
[~2021-10-21 10:56] MED LIST changes: +ONDA-188 PO
[2021-10-21 10:58] VITALS: BP 168/59
[2021-10-21] MEDS ORDERED: NACL 0.9% 1,000 ML IV SCH (11:45)
[2021-10-21] MEDS ORDERED: MORPHINE SULFATE 4 MG/ML SYR IVP ONE ×2 (11:45→13:30)
--- NOTE | 2021-10-21 11:55 | NUR ---
IV STARTED IN R AC, BLOODWORK COLLECTED AND HANDED TO BRAIDER SETTER BEDSIDE
--- NOTE | 2021-10-21 12:01 | NUR ---
Patient was taken to CT via wheelchair.
--- NOTE | 2021-10-21 12:05 | NUR ---
55 y/o female bib self with c/o flank pain and headache x 1 week. Headache is 10/10. Flank pain is left sided with 8/10 pain level. Patient does have a history of kidney stones. Medical History: kidney stones, DM NKDA
[2021-10-21 12:07] LABS: BASOPHILS % (AUTO) 0.6 % (0.0-2.0); EOSINOPHILS # (AUTO) 0.1 K/uL (0-0.4); EOSINOPHILS % (AUTO) 1.5 % (0.0-4.0); HEMATOCRIT 43.1 % (36-48); HEMOGLOBIN 15.1 g/dL (12.0-16.0); LYMPHOCYTES # (AUTO) 2.1 K/uL (2.5-16.5); LYMPHOCYTES % (AUTO) 32.3 % (20.5-51.1); MEAN CORPUSCULAR HEMOGLOBIN 32 pg (27-31); MEAN CORPUSCULAR HGB CONC 35 g/dL (33-37); MEAN CORPUSCULAR VOLUME 92.2 fL (80-94); MONOCYTES # (AUTO) 0.4 K/uL (0.8-1.0); MONOCYTES % (AUTO) 6.5 % (1.7-9.3); NEUTROPHILS # (AUTO) 3.9 K/uL (1.8-7.7); NEUTROPHILS % (AUTO) 59.1 % (42.2-75.2); PLATELET COUNT (AUTO) 230 K/uL (140-450); RED BLOOD CELL COUNT(AUTO) 4.68 MIL/uL (4.20-5.40); RED CELL DISTRIBUTION WIDTH 13.1 % (11.6-13.7); WHITE BLOOD COUNT (AUTO) 6.6 K/uL (4.8-10.8)
--- NOTE | 2021-10-21 12:17 | NUR ---
Patient returned from Imaging.
[2021-10-21 12:29] LABS: APPEARANCE,URINE CLEAR (CLEAR); BILIRUBIN,URINE NEGATIVE (NEGATIVE); BLOOD, URINE 1+ (NEGATIVE); COLOR,URINE YELLOW (YELLOW); LEUKOCYTE ESTERASE ,URINE NEGATIVE (NEGATIVE); NITRITE, URINE NEGATIVE (NEGATIVE); UGLUCOSE 3+ (NEGATIVE)
[2021-10-21 12:39] LABS: ALBUMIN 3.8 g/dL (3.4-5.0); ANION GAP 11.5 (8-16); CARBON DIOXIDE 27.5 mmol/L (21-32); CREATININE 0.7 mg/dL (0.6-1.3); TOTAL BILIRUBIN 0.5 mg/dL (0.0-1.0)
[2021-10-21] MEDS ORDERED: ONDA8TAB87 PO (13:45)
[2021-10-21] MEDS ORDERED: MECL-303 PO (13:45)
[2021-10-21] MEDS ORDERED: ACET-8386 PO (13:45)
--- NOTE | 2021-10-21 13:51 | NUR ---
IVP PAIN MEDS GIVEN-NADR AT THIS TIME
[2021-10-21 14:05] VITALS: BP 144/67
--- NOTE | 2021-10-21 14:05 | NUR ---
Patient discharged with v/s stable. Written and verbal after care instructions given and explained. Patient alert, oriented and verbalized understanding of instructions. Ambulatory with steady gait. All questions addressed prior to discharge. ID band removed. Patient advised to follow up with PMD. Rx of ZOFRAN, ANTIVERT & NORCO given. Patient educated on indication of medication including possible reaction and side effects. Opportunity to ask questions provided and answered.
== END 2021-10-21 14:05 | disposition home or self-care (01) ==
LOC: MED 10:56
DX: R51.9 Headache, unspecified (principal); N20.0 Calculus of kidney; R42 Dizziness and giddiness; M54.2 Cervicalgia; E11.9 Type 2 diabetes mellitus without complications; Z98.890 Other specified postprocedural states; Z79.899 Other long term (current) drug therapy; Z79.891 Long term (current) use of opiate analgesic; Z79.2 Long term (current) use of antibiotics; Z79.4 Long term (current) use of insulin; Z88.8 Allergy status to other drugs, medicaments and biological substances; Z88.6 Allergy status to analgesic agent
CPT/HCPCS: 36415; 70450; 74176; 80053; 81002; 81025; 83690; 85025; 96361; 96374; 96376; 99284; J2270; J7030

== ENCOUNTER 2021-11-06 14:32 | Emergency (ER) | payer MEDICAID ==
[~2021-11-06] VITALS: Ht 149.9 cm; Wt 83.6 kg
[~2021-11-06 14:32] MED LIST changes: +MECL-303 PO; +ONDA8TAB87 PO
[2021-11-06 14:58] VITALS: BP 137/81
--- NOTE | 2021-11-06 15:37 | NUR ---
55 Y/O FEMALE BIB SELF C/O EAR PAIN AND DIZZINESSX1 WK. PT STATES THE DIZZINESS IS INTERMITTENT AND IS AGGREVATED WITH MOVEMENT. PT DENIES RECENT COUGH, COLD, CONGESTION. PT DENIES CHEST PAIN, SOB. PT ALERT AND ORIENTED X4. BED LOCKED IN LOWEST POSITION. BED RAIL X1. PMH:DM MEDS: DENIES
[2021-11-06] MEDS ORDERED: HYDROcodone/APAP 5/325 MG 1 TAB TAB PO ONE (15:55)
[2021-11-06] MEDS ORDERED: MECLIZINE 25 MG TAB PO ONE (15:55)
[2021-11-06 16:20] VITALS: BP 126/74
--- NOTE | 2021-11-06 16:22 | NUR ---
Patient discharged with v/s stable. Written and verbal after care instructions given and explained. Patient alert, oriented and verbalized understanding of instructions. Ambulatory with steady gait. All questions addressed prior to discharge. ID band removed. Patient advised to follow up with PMD. Rx of HYDROCODONE/ACETAMINOPHEN, ANTIVERT, ZOFRAN, CIPRODEX given. Patient educated on indication of medication including possible reaction and side effects. Opportunity to ask questions provided and answered.
--- NOTE | 2021-11-06 16:42 | NUR ---
PT RESTING IN BED, NO APPARENT DISTRESS. BREATHING EVEN AND UNLABORED.
[2021-11-06] MEDS ORDERED: ONDANSETRON 4 MG ODT PO ONE (17:00)
[2021-11-06] MEDS ORDERED: ONDA-188 SL (17:26)
[2021-11-06] MEDS ORDERED: ACET-8386 PO (17:26)
[2021-11-06] MEDS ORDERED: CIPR7.5S OT (17:26)
[2021-11-06] MEDS ORDERED: MECL-303 PO (17:26)
== END 2021-11-06 16:22 | disposition home or self-care (01) ==
LOC: MED 14:32
DX: H60.93 Unspecified otitis externa, bilateral (principal); R51.9 Headache, unspecified; H81.399 Other peripheral vertigo, unspecified ear; R42 Dizziness and giddiness; Z88.6 Allergy status to analgesic agent; Z88.8 Allergy status to other drugs, medicaments and biological substances; Z79.899 Other long term (current) drug therapy; E11.9 Type 2 diabetes mellitus without complications; Z79.4 Long term (current) use of insulin
CPT/HCPCS: 99284; J8597; Q0162

== ENCOUNTER 2021-11-10 17:25 | Emergency (ER) | payer MEDICAID ==
[~2021-11-10] VITALS: Ht 152.4 cm; Wt 83.9 kg
[~2021-11-10 17:25] MED LIST changes: +CIPR7.5S OT; +ONDA-188 SL
[2021-11-10 17:30] VITALS: BP 193/91
[2021-11-10] MEDS ORDERED: LORazepam 1 MG TAB PO ONE (17:55)
--- NOTE | 2021-11-10 18:09 | NUR ---
55 y/o female, c/o anxiety, n&v and abd pain on left side that travels to bl lower extremities started 4 days ago, worsened today. pt also states she has been having dysuria and difficulty urinating. denies anyone sick at home with same s/s. skin is pink/warm/dry. a&o x4 with even and steady gait. lungs clear bl, heart rate even and regular. pt denies any fever, cp, sob, or cough at this time. pt states pain is 9/10 at this time, pressure sensation. patient positioned for comfort. hob elevated. bed down. ermd made aware of pt. pmh: dm2 med: denies
[2021-11-10 18:46] LABS: APPEARANCE,URINE CLEAR (CLEAR); BILIRUBIN,URINE NEGATIVE (NEGATIVE); BLOOD, URINE TRACE-I (NEGATIVE); COLOR,URINE YELLOW (YELLOW); LEUKOCYTE ESTERASE ,URINE NEGATIVE (NEGATIVE); NITRITE, URINE NEGATIVE (NEGATIVE); UGLUCOSE 3+ (NEGATIVE)
--- NOTE | 2021-11-10 19:24 | NUR ---
REPORT GIVEN TO KEISHA MINOR. ALL QUESTIONS ANSWERED. TRANSFER OF CARE AT THIS TIME
[2021-11-10 19:37] LABS: CALCIUM OXALATE CRYSTALS,UR 0-10 /HPF (None Seen); WBC,URINE 0-5 /HPF (0-5)
[2021-11-10] MEDS ORDERED: ATA25 PO (19:39)
[2021-11-10 20:41] VITALS: BP 184/87
== END 2021-11-10 20:41 | disposition home or self-care (01) ==
LOC: MED 17:25
DX: F41.9 Anxiety disorder, unspecified (principal); R30.0 Dysuria; R42 Dizziness and giddiness; E11.9 Type 2 diabetes mellitus without complications; Z79.899 Other long term (current) drug therapy; Z79.891 Long term (current) use of opiate analgesic; Z79.2 Long term (current) use of antibiotics; Z79.4 Long term (current) use of insulin; Z88.8 Allergy status to other drugs, medicaments and biological substances; Z88.6 Allergy status to analgesic agent
CPT/HCPCS: 81001; 81025; 93005; 99284

== ENCOUNTER 2022-01-06 13:59 | Emergency (ER) | payer MEDICAID ==
[~2022-01-06] VITALS: Ht 147.3 cm; Wt 77.6 kg
[~2022-01-06 13:59] MED LIST changes: +ATA25 PO
[2022-01-06 14:11] VITALS: BP 165/79
[2022-01-06] MEDS ORDERED: ONDANSETRON 4 MG/2 ML VIAL IVP ONE (15:05)
[2022-01-06] MEDS ORDERED: MORPHINE SULFATE 4 MG/ML SYR IVP ONE (15:05)
[2022-01-06 15:22] LABS: BASOPHILS # (AUTO) 0.1 K/uL (0.00-0.22); BASOPHILS % (AUTO) 0.6 % (0.0-2.0); EOSINOPHILS # (AUTO) 0.2 K/uL (0-0.4); EOSINOPHILS % (AUTO) 1.8 % (0.0-4.0); HEMATOCRIT 44.4 % (36-48); HEMOGLOBIN 14.9 g/dL (12.0-16.0); LYMPHOCYTES # (AUTO) 5.7 K/uL (2.5-16.5); LYMPHOCYTES % (AUTO) 43.7 % (20.5-51.1); MEAN CORPUSCULAR HEMOGLOBIN 32 pg (27-31); MEAN CORPUSCULAR HGB CONC 34 g/dL (33-37); MEAN CORPUSCULAR VOLUME 94.2 fL (80-94); MONOCYTES # (AUTO) 0.9 K/uL (0.8-1.0); MONOCYTES % (AUTO) 7.1 % (1.7-9.3); NEUTROPHILS # (AUTO) 6.1 K/uL (1.8-7.7); NEUTROPHILS % (AUTO) 46.8 % (42.2-75.2); PLATELET COUNT (AUTO) 245 K/uL (140-450); RED BLOOD CELL COUNT(AUTO) 4.72 MIL/uL (4.20-5.40); RED CELL DISTRIBUTION WIDTH 13.1 % (11.6-13.7)
--- NOTE | 2022-01-06 15:43 | NUR ---
56/F PRESENTS TO ED WITH C/O LEFT SIDED FLANK PAIN X1 WEEK WITH NAUSEA AND VOMITING. PATIENT REPORTS SIMILAR SYMPTOMS IN SEPTEMBER AND DX WITH KIDNEY STONES, PATIENT DENIES DYSURIA, HEMATURIA, FEVERS, CHILLS.
[2022-01-06 15:46] LABS: ANION GAP 13.8 (8-16); CARBON DIOXIDE 26.5 mmol/L (21-32); POTASSIUM 3.3 mmol/L (3.5-5.1); TOTAL BILIRUBIN 0.4 mg/dL (0.0-1.0)
[2022-01-06 16:37] LABS: APPEARANCE,URINE CLEAR (CLEAR); BILIRUBIN,URINE 1+ (NEGATIVE); BLOOD, URINE 3+ (NEGATIVE); COLOR,URINE YELLOW (YELLOW); LEUKOCYTE ESTERASE ,URINE TRACE (NEGATIVE); NITRITE, URINE NEGATIVE (NEGATIVE); UGLUCOSE 2+ (NEGATIVE)
[2022-01-06 16:47] LABS: RBC,URINE 0-5 /HPF (0-5)
[2022-01-06 17:57] VITALS: BP 116/64
[2022-01-06] MEDS ORDERED: ACET-8386 PO (18:02)
--- NOTE | 2022-01-06 18:23 | NUR ---
IV removed, catheter intact and site benign. Applied folded 4x4 gauze and tape to stop bleeding.
--- NOTE | 2022-01-06 18:24 | NUR ---
Patient discharged with v/s stable. Written and verbal after care instructions ABOUT KIDNEY given and explained. Patient alert, oriented and verbalized understanding of instructions. Ambulatory with steady gait. All questions addressed prior to discharge. ID band removed. Patient advised to follow up with PMD. Rx of NORCO given. Patient educated on indication of medication including possible reaction and side effects. Opportunity to ask questions provided and answered.
== END 2022-01-06 18:24 | disposition home or self-care (01) ==
LOC: MED 13:59
DX: N20.0 Calculus of kidney (principal); R35.0 Frequency of micturition; E11.9 Type 2 diabetes mellitus without complications; K21.9 Gastro-esophageal reflux disease without esophagitis; Z79.899 Other long term (current) drug therapy; Z88.8 Allergy status to other drugs, medicaments and biological substances; Z79.4 Long term (current) use of insulin; Z88.1 Allergy status to other antibiotic agents; Z88.6 Allergy status to analgesic agent; Z98.890 Other specified postprocedural states
CPT/HCPCS: 36415; 76770; 80053; 81001; 81025; 85025; 87086; 96374; 96375; 99284; J2270; J2405; Q0092

== ENCOUNTER 2022-02-17 15:19 | Emergency (ER) | payer MEDICAID ==
[~2022-02-17] VITALS: Ht 157.5 cm; Wt 86.2 kg
[2022-02-17 15:31] VITALS: BP 140/74
--- NOTE | 2022-02-17 16:11 | NUR ---
PT AMBULATED TO ER BED 3
--- NOTE | 2022-02-17 16:28 | NUR ---
56YR OLD FEMALE C/O EPIGASTRIC PAIN/WARE X 4DAYS-WEEK. PT STATES EPIGASTRIC PAIN STARTED 4 DAYS AGO WITH V/D. DENIES FEVER. DENIES SOB OR CP. HEADACHE X 1WEEK. PT IS A&OX4. TAJIK SPEAKING ONLY. SKIN WARM DRY AND INTACT. HOB ELEVATED SIDE RAILS UPX2 BED AT LOWEST POSITION. DM NAXROXEN KETOROLAC IBUPROFEN
[2022-02-17] MEDS ORDERED: ONDANSETRON 4 MG/2 ML VIAL IVP ONE (16:55)
[2022-02-17] MEDS ORDERED: diphenhydrAMINE 50 MG/ML VIAL IVP ONE (17:00)
[2022-02-17] MEDS ORDERED: PROCHLORPERAZINE 10 MG/2 ML VIAL IVP ONE (17:00)
[2022-02-17] MEDS ORDERED: FAMOTIDINE 20 MG/2 ML VIAL IVP ONE (17:00)
[2022-02-17] MEDS ORDERED: ACETAMINOPHEN EXTRA STRENGTH 500 MG TAB PO ONE (17:00)
--- NOTE | 2022-02-17 17:04 | NUR ---
RAD AT BEDSIDE
[2022-02-17 17:21] LABS: BASOPHILS # (AUTO) 0.1 K/uL (0.00-0.22); BASOPHILS % (AUTO) 0.8 % (0.0-2.0); EOSINOPHILS # (AUTO) 0.1 K/uL (0-0.4); EOSINOPHILS % (AUTO) 1.4 % (0.0-4.0); HEMATOCRIT 42.4 % (36-48); HEMOGLOBIN 14.5 g/dL (12.0-16.0); LYMPHOCYTES # (AUTO) 2.3 K/uL (2.5-16.5); LYMPHOCYTES % (AUTO) 30.2 % (20.5-51.1); MEAN CORPUSCULAR HEMOGLOBIN 32 pg (27-31); MEAN CORPUSCULAR HGB CONC 34 g/dL (33-37); MEAN CORPUSCULAR VOLUME 92.6 fL (80-94); MONOCYTES # (AUTO) 0.6 K/uL (0.8-1.0); MONOCYTES % (AUTO) 7.8 % (1.7-9.3); NEUTROPHILS # (AUTO) 4.5 K/uL (1.8-7.7); NEUTROPHILS % (AUTO) 59.8 % (42.2-75.2); PLATELET COUNT (AUTO) 232 K/uL (140-450); RED BLOOD CELL COUNT(AUTO) 4.58 MIL/uL (4.20-5.40); RED CELL DISTRIBUTION WIDTH 13.1 % (11.6-13.7); WHITE BLOOD COUNT (AUTO) 7.6 K/uL (4.8-10.8)
--- NOTE | 2022-02-17 17:26 | NUR ---
PT AT CT
[2022-02-17] MEDS: NACL 0.9% 1,000 ML IV SCH (17:38)
--- NOTE | 2022-02-17 17:39 | NUR ---
20G IV CATH PLACED IN L AC.
[2022-02-17 17:41] LABS: ALBUMIN 3.6 g/dL (3.4-5.0); ANION GAP 12.6 (8-16); CARBON DIOXIDE 27.9 mmol/L (21-32); CREATININE 0.8 mg/dL (0.6-1.3); POTASSIUM 4.5 mmol/L (3.5-5.1); TOTAL BILIRUBIN 0.4 mg/dL (0.0-1.0)
--- NOTE | 2022-02-17 17:50 | NUR ---
PT REFUSED TYLENOL. ATTEMPTED TO PULL BENADRYL IN PIXIS, DOOR MALFUNCTION, VERIFED BY RN
[2022-02-17] MEDS ORDERED: FAMO-90 PO (18:31)
[2022-02-17] MEDS ORDERED: ONDA-188 SL (18:31)
--- NOTE | 2022-02-17 19:30 | NUR ---
PATIENT WAS DC AND HAD A "SNYCOPAL EPSIODE" WAS PUT BACK IN BED AND ON BEDSIDE MONITOR. DR RYAN AWARE OF PT CONDITION
[2022-02-17] MEDS ORDERED: NACL 0.9% 1,000 ML IV ONE (20:00)
[2022-02-17] MEDS ORDERED: LORazepam 2 MG/ML VIAL IVP ONE (21:10)
--- NOTE | 2022-02-17 22:09 | NUR ---
PT IS ASLEEP RESP EVEN AND UNLABORED. PT IS ON BEDSIDE MONITOR. PENDING DISPO
[2022-02-18] MEDS ORDERED: MECLIZINE 25 MG TAB PO ONE (01:10)
[2022-02-18 02:03] VITALS: BP 132/53
--- NOTE | 2022-02-18 02:05 | NUR ---
Patient discharged with v/s stable. Written and verbal after care instructions given and explained. Patient verbalized understanding. Ambulatory with steady gait. All questions addressed prior to discharge. Advised to follow up with PMD.
[2022-02-18] MEDS: NACL 0.9% 1,000 ML IV SCH (02:06)
--- NOTE | 2022-02-20 08:50 | NUR ---
LATE ENTRY- IV NORMAL SALINE DISCONTINUED AT 0205.
== END 2022-02-18 02:05 | disposition home or self-care (01) ==
LOC: MED 15:19
DX: R11.10 Vomiting, unspecified (principal); R51.9 Headache, unspecified; R19.7 Diarrhea, unspecified; R10.13 Epigastric pain; E11.9 Type 2 diabetes mellitus without complications; K21.9 Gastro-esophageal reflux disease without esophagitis; Z79.899 Other long term (current) drug therapy; Z79.891 Long term (current) use of opiate analgesic; Z79.2 Long term (current) use of antibiotics; Z79.1 Long term (current) use of non-steroidal anti-inflammatories (NSAID); Z79.4 Long term (current) use of insulin; Z88.6 Allergy status to analgesic agent; Z88.8 Allergy status to other drugs, medicaments and biological substances
CPT/HCPCS: 36415; 70450; 71045; 74176; 80053; 81002; 82150; 83690; 84484; 85025; 93005; 96361; 96374; 96375; 99285; J0780; J1200; J2060; J3490; J7030; J8597

== ENCOUNTER 2022-03-05 16:36 | Emergency (ER) | payer MEDICAID ==
[~2022-03-05] VITALS: Ht 157.5 cm; Wt 87.1 kg
[~2022-03-05 16:36] MED LIST changes: +FAMO-90 PO
[2022-03-05 16:40] VITALS: BP 164/65
--- NOTE | 2022-03-05 16:46 | NUR ---
BIB SELF C/O DIZZINESS, VOMITING, 7/10 WARE X 5 DAYS. BLOOD SUGAR 209 AT THIS TIME. PMH: DM
[2022-03-05] MEDS ORDERED: ONDANSETRON 4 MG ODT PO ONE (17:20)
[2022-03-05 17:40] LABS: BASOPHILS # (AUTO) 0.1 K/uL (0.00-0.22); BASOPHILS % (AUTO) 0.7 % (0.0-2.0); EOSINOPHILS # (AUTO) 0.1 K/uL (0-0.4); EOSINOPHILS % (AUTO) 0.6 % (0.0-4.0); HEMATOCRIT 41.7 % (36-48); HEMOGLOBIN 14.7 g/dL (12.0-16.0); LYMPHOCYTES % (AUTO) 22.3 % (20.5-51.1); MEAN CORPUSCULAR HEMOGLOBIN 32 pg (27-31); MEAN CORPUSCULAR HGB CONC 35 g/dL (33-37); MEAN CORPUSCULAR VOLUME 91.4 fL (80-94); MONOCYTES # (AUTO) 0.4 K/uL (0.8-1.0); MONOCYTES % (AUTO) 4.6 % (1.7-9.3); NEUTROPHILS # (AUTO) 6.3 K/uL (1.8-7.7); NEUTROPHILS % (AUTO) 71.8 % (42.2-75.2); PLATELET COUNT (AUTO) 255 K/uL (140-450); RED BLOOD CELL COUNT(AUTO) 4.56 MIL/uL (4.20-5.40); RED CELL DISTRIBUTION WIDTH 13.1 % (11.6-13.7); WHITE BLOOD COUNT (AUTO) 8.8 K/uL (4.8-10.8)
[2022-03-05 18:02] LABS: ALBUMIN 3.7 g/dL (3.4-5.0); ANION GAP 14.6 (8-16); ASPARTATE AMINOTRANSFERASE 15 U/L (15-37); CARBON DIOXIDE 25.9 mmol/L (21-32); CHLORIDE 101 mmol/L (98-107); CREATININE 0.8 mg/dL (0.6-1.3); GFR ARICAN-AMERICAN 96 mL/min (>90); GLUCOSE 259 mg/dL (74-106); POTASSIUM 4.5 mmol/L (3.5-5.1); SODIUM SERUM 137 mmol/L (136-145); TOTAL BILIRUBIN 0.5 mg/dL (0.0-1.0); UREA NITROGEN, BLOOD 12 mg/dL (7-18)
[2022-03-05] MEDS ORDERED: ONDANSETRON 4 MG ODT ONE (18:56)
--- NOTE | 2022-03-05 19:44 | NUR ---
PATIENT LEFT WITHOUT BEING SEEN BY DR. Mratins. NO FURTHER CARE PROVIDED FOR PATIENT.
[2022-03-06 18:28] LABS: LIPASE 61 U/L (73-393)
== END 2022-03-05 19:44 | disposition left against medical advice (07) ==
LOC: MED 16:36
DX: R42 Dizziness and giddiness (principal); Z53.21 Procedure and treatment not carried out due to patient leaving prior to being seen by health care provider
CPT/HCPCS: 36415; 80053; 83690; 84484; 85025; 93005; Q0162

== ENCOUNTER 2022-03-23 12:50 | Emergency (ER) | payer MEDICAID ==
[~2022-03-23] VITALS: Ht 152.4 cm; Wt 86.6 kg
[2022-03-23 13:05] VITALS: BP 150/78
[2022-03-23 13:40] LABS: BASOPHILS % (AUTO) 0.5 % (0.0-2.0); EOSINOPHILS # (AUTO) 0.1 K/uL (0-0.4); EOSINOPHILS % (AUTO) 1.3 % (0.0-4.0); HEMATOCRIT 42.3 % (36-48); HEMOGLOBIN 14.6 g/dL (12.0-16.0); LYMPHOCYTES # (AUTO) 3.1 K/uL (2.5-16.5); LYMPHOCYTES % (AUTO) 35.3 % (20.5-51.1); MEAN CORPUSCULAR HEMOGLOBIN 32 pg (27-31); MEAN CORPUSCULAR HGB CONC 35 g/dL (33-37); MEAN CORPUSCULAR VOLUME 92.9 fL (80-94); MONOCYTES # (AUTO) 0.6 K/uL (0.8-1.0); MONOCYTES % (AUTO) 6.8 % (1.7-9.3); NEUTROPHILS # (AUTO) 4.9 K/uL (1.8-7.7); NEUTROPHILS % (AUTO) 56.1 % (42.2-75.2); PLATELET COUNT (AUTO) 232 K/uL (140-450); RED BLOOD CELL COUNT(AUTO) 4.55 MIL/uL (4.20-5.40); RED CELL DISTRIBUTION WIDTH 13.3 % (11.6-13.7); WHITE BLOOD COUNT (AUTO) 8.7 K/uL (4.8-10.8)
[2022-03-23 13:41] LABS: APPEARANCE,URINE CLEAR (CLEAR); BILIRUBIN,URINE NEGATIVE (NEGATIVE); BLOOD, URINE 3+ (NEGATIVE); COLOR,URINE YELLOW (YELLOW); LEUKOCYTE ESTERASE ,URINE NEGATIVE (NEGATIVE); NITRITE, URINE NEGATIVE (NEGATIVE); UGLUCOSE 3+ (NEGATIVE)
[2022-03-23 13:55] LABS: OTHER CASTS, URINE None Seen /LPF (None Seen); RBC,URINE 11-20 (MOD) /HPF (0-5); WBC,URINE 0-5 /HPF (0-5)
[2022-03-23 14:03] LABS: ALBUMIN 3.6 g/dL (3.4-5.0); ANION GAP 12.9 (8-16); CARBON DIOXIDE 27.5 mmol/L (21-32); CREATININE 0.9 mg/dL (0.6-1.3); POTASSIUM 4.4 mmol/L (3.5-5.1); TOTAL BILIRUBIN 0.4 mg/dL (0.0-1.0)
--- NOTE | 2022-03-23 14:13 | NUR ---
PT AMBULATED TO ER BED 8
[2022-03-23] MEDS ORDERED: MORPHINE SULFATE 4 MG/ML SYR IM ONE (14:20)
--- NOTE | 2022-03-23 14:33 | NUR ---
[facility]
--- NOTE | 2022-03-23 14:37 | NUR ---
56 y/o female bib self with c/o right sided flank pain x 1 week. Per patient, she was diagnosed with a kidney stone 1 year ago but pain didn't start until 1 week ago. Patient saw her PCP on 03/20/22 and was prescribed Tylenol. Patient is taking Tylenol with no pain relief. Denies any SOB, fever or chills. Medical History: DM ALLERGY: TORADOL, IBUPROFEN, NAPROXEN
[2022-03-23] MEDS ORDERED: TRAM50TA1 PO (15:08)
[2022-03-23] MEDS ORDERED: CEPH-588 PO (15:08)
[2022-03-23 15:22] VITALS: BP 152/85
--- NOTE | 2022-03-23 15:22 | NUR ---
Patient discharged with v/s stable. Written and verbal after care instructions given. Patient alert, oriented and verbalized understanding of instructions. Ambulatory with steady gait. All questions addressed prior to discharge. ID band removed. Patient advised to follow up with PMD. Rx of Keflex and Ultram given. Opportunity to ask questions provided and answered.
== END 2022-03-23 15:22 | disposition home or self-care (01) ==
LOC: MED 12:50
DX: N12 Tubulo-interstitial nephritis, not specified as acute or chronic (principal); N20.0 Calculus of kidney; Z79.1 Long term (current) use of non-steroidal anti-inflammatories (NSAID)
CPT/HCPCS: 36415; 74176; 80053; 81001; 81025; 83690; 85025; 87086; 96372; 99284; J2270

== ENCOUNTER 2022-04-05 10:57 | Emergency (ER) | payer MEDICAID ==
[~2022-04-05] VITALS: Ht 149.9 cm; Wt 86.6 kg
[~2022-04-05 10:57] MED LIST changes: +CEPH-588 PO; +TRAM-748 PO
[2022-04-05 10:58] VITALS: BP 150/78
--- NOTE | 2022-04-05 11:10 | NUR ---
56/F WALKED IN C/P B/L FLANK PAIN ONSET 4 DAYS. STATES HX KIDNEY STONE 1 WK AGO. DENIES ANY URINARY S/SX. DENIES FEVER. AAO4 ,AMBULATORY. pmh: dm2, kidney stones allergy: ketorolac, naproxen, ibuprofen med: denies
[2022-04-05] MEDS ORDERED: NACL 0.9% 1,000 ML IV ONE (11:15)
[2022-04-05] MEDS ORDERED: MORPHINE SULFATE 4 MG/ML SYR IVP ONE (11:15)
--- NOTE | 2022-04-05 11:39 | NUR ---
IV ESTABLISHED TO RIGHT AC WITH 20G. BLOOD DRAWN MARYURI DEAN OF INSTRUCTION. URINE COLLECTED. ON MONITOR
--- NOTE | 2022-04-05 11:41 | NUR ---
PT WENT TO CT
[2022-04-05 11:42] LABS: BASOPHILS % (AUTO) 0.6 % (0.0-2.0); EOSINOPHILS # (AUTO) 0.1 K/uL (0-0.4); EOSINOPHILS % (AUTO) 1.6 % (0.0-4.0); HEMATOCRIT 41.9 % (36-48); HEMOGLOBIN 14.4 g/dL (12.0-16.0); LYMPHOCYTES # (AUTO) 2.2 K/uL (2.5-16.5); LYMPHOCYTES % (AUTO) 29.5 % (20.5-51.1); MEAN CORPUSCULAR HEMOGLOBIN 32 pg (27-31); MEAN CORPUSCULAR HGB CONC 34 g/dL (33-37); MEAN CORPUSCULAR VOLUME 92.9 fL (80-94); MONOCYTES # (AUTO) 0.5 K/uL (0.8-1.0); MONOCYTES % (AUTO) 6.2 % (1.7-9.3); NEUTROPHILS # (AUTO) 4.6 K/uL (1.8-7.7); NEUTROPHILS % (AUTO) 62.1 % (42.2-75.2); PLATELET COUNT (AUTO) 248 K/uL (140-450); RED BLOOD CELL COUNT(AUTO) 4.51 MIL/uL (4.20-5.40); RED CELL DISTRIBUTION WIDTH 13.2 % (11.6-13.7); WHITE BLOOD COUNT (AUTO) 7.4 K/uL (4.8-10.8)
[2022-04-05 12:02] LABS: ALBUMIN 3.4 g/dL (3.4-5.0); ANION GAP 9.6 (8-16); CARBON DIOXIDE 26.8 mmol/L (21-32); CREATININE 0.9 mg/dL (0.6-1.3); POTASSIUM 4.4 mmol/L (3.5-5.1); TOTAL BILIRUBIN 0.3 mg/dL (0.0-1.0)
[2022-04-05 13:00] VITALS: BP 147/75
[2022-04-05 13:42] LABS: APPEARANCE,URINE CLEAR (CLEAR); BILIRUBIN,URINE NEGATIVE (NEGATIVE); BLOOD, URINE 1+ (NEGATIVE); COLOR,URINE YELLOW (YELLOW); LEUKOCYTE ESTERASE ,URINE NEGATIVE (NEGATIVE); NITRITE, URINE NEGATIVE (NEGATIVE); UGLUCOSE 3+ (NEGATIVE)
[2022-04-05 13:56] LABS: OTHER CASTS, URINE None Seen /LPF (None Seen); RBC,URINE 11-20 (MOD) /HPF (0-5)
[2022-04-05] MEDS ORDERED: ACETAMIN/CODEINE 120/12MG-5ML 5 ML UDC PO ONE (14:40)
[2022-04-05] MEDS ORDERED: ACET-503 PO (14:44)
--- NOTE | 2022-04-05 14:50 | NUR ---
Patient discharged with v/s stable. Written and verbal after care instructions given and explained. Patient alert, oriented and verbalized understanding of instructions. Ambulatory with steady gait. All questions addressed prior to discharge. ID band removed. Patient advised to follow up with PMD. Patient educated on indication of medication including possible reaction and side effects. Opportunity to ask questions provided and answered.
== END 2022-04-05 14:50 | disposition home or self-care (01) ==
LOC: MED 10:57
DX: N20.0 Calculus of kidney (principal); E11.9 Type 2 diabetes mellitus without complications; Z87.442 Personal history of urinary calculi
CPT/HCPCS: 36415; 74176; 80053; 81001; 85025; 87086; 96361; 96374; 99284; J2270; J7030

== ENCOUNTER 2022-05-06 10:26 | Emergency (ER) | payer MEDICAID ==
[~2022-05-06] VITALS: Ht 154.9 cm; Wt 84.8 kg
[~2022-05-06 10:26] MED LIST changes: +ACET-503 PO
[2022-05-06 10:38] VITALS: BP 155/85
--- NOTE | 2022-05-06 10:48 | NUR ---
PT AMB TO BED 10
--- NOTE | 2022-05-06 11:13 | NUR ---
Dr. Akbar evaluating patient at bedside.
[2022-05-06] MEDS ORDERED: NACL 0.9% 1,000 ML IV ONE (11:15)
[2022-05-06] MEDS ORDERED: MORPHINE SULFATE 4 MG/ML SYR IVP ONE (11:15)
--- NOTE | 2022-05-06 11:20 | NUR ---
Pt moved to bed 07 via [facility].
--- NOTE | 2022-05-06 11:43 | NUR ---
Patient taken to CT via gurney.
[2022-05-06 11:51] LABS: BASOPHILS % (AUTO) 0.5 % (0.0-2.0); EOSINOPHILS # (AUTO) 0.2 K/uL (0-0.4); EOSINOPHILS % (AUTO) 1.9 % (0.0-4.0); HEMOGLOBIN 14.2 g/dL (12.0-16.0); LYMPHOCYTES # (AUTO) 2.8 K/uL (2.5-16.5); LYMPHOCYTES % (AUTO) 35.9 % (20.5-51.1); MEAN CORPUSCULAR HEMOGLOBIN 32 pg (27-31); MEAN CORPUSCULAR HGB CONC 35 g/dL (33-37); MEAN CORPUSCULAR VOLUME 91.1 fL (80-94); MONOCYTES # (AUTO) 0.5 K/uL (0.8-1.0); MONOCYTES % (AUTO) 6.4 % (1.7-9.3); NEUTROPHILS # (AUTO) 4.4 K/uL (1.8-7.7); NEUTROPHILS % (AUTO) 55.3 % (42.2-75.2); PLATELET COUNT (AUTO) 220 K/uL (140-450); RED CELL DISTRIBUTION WIDTH 13.2 % (11.6-13.7); WHITE BLOOD COUNT (AUTO) 7.9 K/uL (4.8-10.8)
[2022-05-06 11:58] LABS: APPEARANCE,URINE CLEAR (CLEAR); BILIRUBIN,URINE NEGATIVE (NEGATIVE); BLOOD, URINE TRACE-L (NEGATIVE); COLOR,URINE YELLOW (YELLOW); LEUKOCYTE ESTERASE ,URINE NEGATIVE (NEGATIVE); NITRITE, URINE NEGATIVE (NEGATIVE); UGLUCOSE 3+ (NEGATIVE)
--- NOTE | 2022-05-06 12:06 | NUR ---
56 y/o female bib self for c/o left flank pain. Per patient, she was diagnosed with kidney stones 1.5 years ago and has not had any issues until recently. Patient also is complaining of a purple circular area to left inner thigh. Area is warm to touch. Patient has been taking Tylenol with little relief. Patient denies any fever, chills or SOB. Medical History: DM ALLERGY: IBUPROFEN, KETOROLAC, NAPROXEN
--- NOTE | 2022-05-06 12:06 | NUR ---
X-Ray at bedside.
[2022-05-06 12:21] LABS: ALBUMIN 3.7 g/dL (3.4-5.0); ANION GAP 14.3 (8-16); ASPARTATE AMINOTRANSFERASE 17 U/L (15-37); CARBON DIOXIDE 25.4 mmol/L (21-32); CHLORIDE 102 mmol/L (98-107); CREATININE 0.9 mg/dL (0.6-1.3); GFR ARICAN-AMERICAN 84 mL/min (>90); GLUCOSE 259 mg/dL (74-106); LIPASE 81 U/L (73-393); POTASSIUM 3.7 mmol/L (3.5-5.1); SODIUM SERUM 138 mmol/L (136-145); TOTAL BILIRUBIN 0.5 mg/dL (0.0-1.0); UREA NITROGEN, BLOOD 16 mg/dL (7-18); WBC,URINE 0-5 /HPF (0-5)
[2022-05-06] MEDS ORDERED: HYDROmorphone PFS 2 MG/ML SYR IVP ONE (12:30)
[2022-05-06] MEDS ORDERED: CEPH-588 PO (13:45)
[2022-05-06] MEDS ORDERED: HYDR-5080 PO (13:45)
[2022-05-06] MEDS ORDERED: TAMS0.4C96 PO (13:45)
[2022-05-06 14:35] VITALS: BP 138/61
--- NOTE | 2022-05-06 14:35 | NUR ---
Patient discharged with v/s stable. Written and verbal after care instructions given. Patient alert, oriented and verbalized understanding of instructions. Ambulatory with steady gait. All questions addressed prior to discharge. ID band removed. Patient advised to follow up with PMD. Rx of Keflex, [place] and Flomax given. Opportunity to ask questions provided and answered.
--- NOTE | 2022-05-06 14:36 | NUR ---
The patient's care was reviewed and supervised by Johanna Coburn, RN, RN.
== END 2022-05-06 14:35 | disposition home or self-care (01) ==
LOC: MED 10:26
DX: L03.116 Cellulitis of left lower limb (principal); N21.1 Calculus in urethra; E11.9 Type 2 diabetes mellitus without complications; Z79.4 Long term (current) use of insulin; Z79.899 Other long term (current) drug therapy; Z79.1 Long term (current) use of non-steroidal anti-inflammatories (NSAID)
CPT/HCPCS: 36415; 71045; 74177; 80053; 81001; 81025; 83690; 84484; 85025; 93005; 96361; 96374; 96375; 99285; J1170; J2270; J7030; Q0092; Q9967

== ENCOUNTER 2022-05-30 10:12 | Emergency (ER) | payer MEDICAID ==
[~2022-05-30] VITALS: Ht 149.9 cm; Wt 79.4 kg
[~2022-05-30 10:12] MED LIST changes: -ACET-8386 PO; +ACET-8905 PO; +HYDR-5080 PO; +TAMS0.4C96 PO
[2022-05-30 10:15] VITALS: BP 161/74
--- NOTE | 2022-05-30 10:17 | NUR ---
PT AMBULATED TO LOBBY
--- NOTE | 2022-05-30 10:20 | NUR ---
56/F WALKED IN C/O LEFT EAR PAIN ONSET 1 WK. REPORTS MILD WATERY DISCHARGE. AFEBRILE AT TRIAGE. AAO4, AMBULATORY, VITALS STABLE. PMH: DM
[2022-05-30] MEDS ORDERED: HYDROcodone/APAP 5/325 MG 1 TAB TAB PO ONE (11:45)
[2022-05-30] MEDS ORDERED: ONDANSETRON 4 MG ODT PO ONE (11:45)
--- NOTE | 2022-05-30 12:05 | NUR ---
PT STATES DAUGHTER TRANSPORTATION
[2022-05-30] MEDS ORDERED: ACET-8905 PO (13:06)
[2022-05-30] MEDS ORDERED: CIPR7.5S OT (13:06)
[2022-05-30 13:20] VITALS: BP 152/68
== END 2022-05-30 13:20 | disposition home or self-care (01) ==
LOC: MED 10:12
DX: H60.502 Unspecified acute noninfective otitis externa, left ear (principal); R51.9 Headache, unspecified; E11.9 Type 2 diabetes mellitus without complications; Z88.6 Allergy status to analgesic agent; Z88.8 Allergy status to other drugs, medicaments and biological substances; Z79.899 Other long term (current) drug therapy; Z79.4 Long term (current) use of insulin
CPT/HCPCS: 99283; Q0162

== ENCOUNTER 2022-07-05 12:38 | Emergency (ER) | payer MEDICAID ==
[~2022-07-05] VITALS: Ht 147.3 cm; Wt 87.3 kg
[2022-07-05 12:42] VITALS: BP 147/100
--- NOTE | 2022-07-05 12:48 | NUR ---
56/F WALKED IN C/O LLQ ABD PAIN X4 DAYS. PT REPORTS HX KIDNEY STONE. AFEBRILE AT TRIAGE. AAO4, DENIES NVD. VITALS STABLE. URINE COLLECTED PMH: DM, ANXIETY, VERTIGO, NEPHROLITHIASIS
[2022-07-05] MEDS ORDERED: fentaNYL citrate 0.05 MG/ML VIAL IVP ONE (13:10)
[2022-07-05] MEDS ORDERED: NACL 0.9% 1,000 ML IV ONE (13:10)
--- NOTE | 2022-07-05 13:28 | NUR ---
IV ESTABLISHED TO RIGHT AC WITH 20G. BLOOD DRAWN.
[2022-07-05 13:49] LABS: BASOPHILS % (AUTO) 0.5 % (0.0-2.0); EOSINOPHILS # (AUTO) 0.1 K/uL (0-0.4); EOSINOPHILS % (AUTO) 0.9 % (0.0-4.0); HEMATOCRIT 40.1 % (36-48); LYMPHOCYTES # (AUTO) 2.7 K/uL (2.5-16.5); LYMPHOCYTES % (AUTO) 27.4 % (20.5-51.1); MEAN CORPUSCULAR HEMOGLOBIN 32 pg (27-31); MEAN CORPUSCULAR HGB CONC 35 g/dL (33-37); MEAN CORPUSCULAR VOLUME 91.1 fL (80-94); MONOCYTES # (AUTO) 0.6 K/uL (0.8-1.0); MONOCYTES % (AUTO) 5.9 % (1.7-9.3); NEUTROPHILS # (AUTO) 6.4 K/uL (1.8-7.7); NEUTROPHILS % (AUTO) 65.3 % (42.2-75.2); PLATELET COUNT (AUTO) 233 K/uL (140-450); WHITE BLOOD COUNT (AUTO) 9.7 K/uL (4.8-10.8)
[2022-07-05 14:24] LABS: ALBUMIN 3.8 g/dL (3.4-5.0); ANION GAP 11.2 (8-16); CARBON DIOXIDE 26.8 mmol/L (21-32); CREATININE 0.9 mg/dL (0.6-1.3); TOTAL BILIRUBIN 0.5 mg/dL (0.0-1.0)
[2022-07-05 14:28] LABS: APPEARANCE,URINE CLEAR (CLEAR); BILIRUBIN,URINE NEGATIVE (NEGATIVE); BLOOD, URINE TRACE-L (NEGATIVE); COLOR,URINE YELLOW (YELLOW); LEUKOCYTE ESTERASE ,URINE NEGATIVE (NEGATIVE); NITRITE, URINE NEGATIVE (NEGATIVE); PH,URINE 6.5 (5.0-9.0); UGLUCOSE >=1000 (NEGATIVE)
[2022-07-05 14:52] LABS: OTHER CASTS, URINE None Seen /LPF (None Seen); WBC,URINE 0-5 /HPF (0-5)
[2022-07-05] MEDS ORDERED: DOCU-299 PO (15:09)
[2022-07-05] MEDS ORDERED: TAMS0.4C96 PO (15:09)
[2022-07-05] MEDS ORDERED: ONDA-188 PO (15:09)
[2022-07-05] MEDS ORDERED: ACET-10509 PO (15:09)
[2022-07-05] MEDS ORDERED: ACET-5629 PO (15:09)
[2022-07-05 15:20] VITALS: BP 139/82
== END 2022-07-05 15:20 | disposition home or self-care (01) ==
LOC: MED 12:38
DX: R10.32 Left lower quadrant pain (principal); E11.9 Type 2 diabetes mellitus without complications; F41.9 Anxiety disorder, unspecified; Z88.6 Allergy status to analgesic agent; Z88.8 Allergy status to other drugs, medicaments and biological substances; Z79.899 Other long term (current) drug therapy; Z79.4 Long term (current) use of insulin
CPT/HCPCS: 36415; 74176; 80053; 81001; 83690; 85025; 96361; 96374; 99285; J3010; J7030

== ENCOUNTER 2022-07-25 10:41 | Emergency (ER) | payer MEDICAID ==
[~2022-07-25] VITALS: Ht 154.9 cm; Wt 88.5 kg
[~2022-07-25 10:41] MED LIST changes: +ACET-10509 PO; +ACET-5629 PO; +DOCU-299 PO
[2022-07-25 10:55] VITALS: BP 155/72
--- NOTE | 2022-07-25 11:17 | NUR ---
LAB AT BEDSIDE.
--- NOTE | 2022-07-25 11:21 | NUR ---
Ismael knott in EDM - 07/25/22 at 1238 by [email or web address] 56Y/O F BIB SELF C/O ABD PAIN 02/03 WITH NAUSEA ONLY ON LLQ FOR 5 DAYS. 03/05 ON PAIN. MARTINA PMH: CONRAD
[2022-07-25 11:34] LABS: APPEARANCE,URINE CLEAR (CLEAR); BILIRUBIN,URINE NEGATIVE (NEGATIVE); BLOOD, URINE NEGATIVE (NEGATIVE); COLOR,URINE YELLOW (YELLOW); LEUKOCYTE ESTERASE ,URINE NEGATIVE (NEGATIVE); NITRITE, URINE NEGATIVE (NEGATIVE); PH,URINE 7.5 (5.0-9.0); UGLUCOSE 2+ (NEGATIVE)
--- NOTE | 2022-07-25 11:35 | NUR ---
DR GONZALEZ AT BEDSIDE.
[2022-07-25 11:37] LABS: BASOPHILS # (AUTO) 0.1 K/uL (0.00-0.22); BASOPHILS % (AUTO) 0.9 % (0.0-2.0); EOSINOPHILS # (AUTO) 0.2 K/uL (0-0.4); HEMATOCRIT 39.9 % (36-48); HEMOGLOBIN 13.8 g/dL (12.0-16.0); LYMPHOCYTES # (AUTO) 4.8 K/uL (2.5-16.5); LYMPHOCYTES % (AUTO) 45.4 % (20.5-51.1); MEAN CORPUSCULAR HEMOGLOBIN 31 pg (27-31); MEAN CORPUSCULAR HGB CONC 35 g/dL (33-37); MEAN CORPUSCULAR VOLUME 90.4 fL (80-94); MONOCYTES # (AUTO) 0.6 K/uL (0.8-1.0); MONOCYTES % (AUTO) 5.8 % (1.7-9.3); NEUTROPHILS # (AUTO) 4.8 K/uL (1.8-7.7); NEUTROPHILS % (AUTO) 45.9 % (42.2-75.2); PLATELET COUNT (AUTO) 331 K/uL (140-450); RED BLOOD CELL COUNT(AUTO) 4.41 MIL/uL (4.20-5.40); WHITE BLOOD COUNT (AUTO) 10.5 K/uL (4.8-10.8)
[2022-07-25] MEDS ORDERED: MORPHINE SULFATE 4 MG/ML SYR IVP ONE (11:40)
[2022-07-25 11:49] LABS: RBC,URINE NONE SEEN /HPF (0-5)
[2022-07-25 12:01] LABS: ALBUMIN 4.1 g/dL (3.4-5.0); ANION GAP 10.5 (8-16); CARBON DIOXIDE 29.3 mmol/L (21-32); CREATININE 0.8 mg/dL (0.6-1.3); POTASSIUM 3.8 mmol/L (3.5-5.1); TOTAL BILIRUBIN 0.4 mg/dL (0.0-1.0)
--- NOTE | 2022-07-25 12:38 | NUR ---
56Y/O F BIB SELF C/O ABD PAIN / WITH NAUSEA ONLY ON LLQ FOR 5 DAYS. 03/05 ON PAIN. ALLERGIES:IBUPROFEN, KETOROLAC, NAPROXEN PMH: DM
[2022-07-25] MEDS ORDERED: HYDROcodone/APAP 10/325 MG 1 TAB TAB PO STA (13:27)
[2022-07-25] MEDS ORDERED: OXYC-79 PO (13:29)
[2022-07-25 14:06] VITALS: BP 125/58
--- NOTE | 2022-07-25 14:07 | NUR ---
IV removed, catheter intact and site benign. Applied folded 4x4 gauze and tape to stop bleeding.
--- NOTE | 2022-07-25 14:07 | NUR ---
Patient discharged with v/s stable. Written and verbal after care instructions given and explained. Patient alert, oriented and verbalized understanding of instructions. Ambulatory with steady gait. All questions addressed prior to discharge. ID band removed. Patient advised to follow up with PMD. Rx of OXYCODONE HCI given. Opportunity to ask questions provided and answered.
--- NOTE | 2022-07-25 14:08 | NUR ---
The patient's care was reviewed and supervised by Johanna Coburn, RN, RN.
== END 2022-07-25 14:07 | disposition home or self-care (01) ==
LOC: MED 10:41
DX: R10.32 Left lower quadrant pain (principal); E11.9 Type 2 diabetes mellitus without complications; Z79.899 Other long term (current) drug therapy; Z79.891 Long term (current) use of opiate analgesic; Z79.2 Long term (current) use of antibiotics; Z79.4 Long term (current) use of insulin; Z79.1 Long term (current) use of non-steroidal anti-inflammatories (NSAID); Z88.6 Allergy status to analgesic agent
CPT/HCPCS: 36415; 74177; 80053; 81001; 81025; 83690; 85025; 87086; 96374; 99285; J2270; Q9967

== ENCOUNTER 2022-08-30 15:40 | Emergency (ER) | payer MEDICAID ==
[~2022-08-30] VITALS: Ht 149.9 cm; Wt 89.4 kg
[~2022-08-30 15:40] MED LIST changes: +OXYC-79 PO
[2022-08-30 16:06] VITALS: BP 149/85
[2022-08-30 17:22] LABS: BASOPHILS % (AUTO) 0.5 % (0.0-2.0); EOSINOPHILS # (AUTO) 0.1 K/uL (0-0.4); EOSINOPHILS % (AUTO) 1.5 % (0.0-4.0); HEMATOCRIT 41.9 % (36-48); HEMOGLOBIN 14.6 g/dL (12.0-16.0); LYMPHOCYTES # (AUTO) 3.3 K/uL (2.5-16.5); LYMPHOCYTES % (AUTO) 42.8 % (20.5-51.1); MEAN CORPUSCULAR HEMOGLOBIN 32 pg (27-31); MEAN CORPUSCULAR HGB CONC 35 g/dL (33-37); MEAN CORPUSCULAR VOLUME 90.6 fL (80-94); MONOCYTES # (AUTO) 0.5 K/uL (0.8-1.0); MONOCYTES % (AUTO) 6.4 % (1.7-9.3); NEUTROPHILS # (AUTO) 3.8 K/uL (1.8-7.7); NEUTROPHILS % (AUTO) 48.8 % (42.2-75.2); PLATELET COUNT (AUTO) 254 K/uL (140-450); RED BLOOD CELL COUNT(AUTO) 4.63 MIL/uL (4.20-5.40); RED CELL DISTRIBUTION WIDTH 13.5 % (11.6-13.7); WHITE BLOOD COUNT (AUTO) 7.7 K/uL (4.8-10.8)
[2022-08-30 17:33] LABS: APPEARANCE,URINE CLEAR (CLEAR); BILIRUBIN,URINE NEGATIVE (NEGATIVE); BLOOD, URINE TRACE-I (NEGATIVE); COLOR,URINE YELLOW (YELLOW); LEUKOCYTE ESTERASE ,URINE NEGATIVE (NEGATIVE); NITRITE, URINE NEGATIVE (NEGATIVE); PH,URINE 6.5 (5.0-9.0); UGLUCOSE NEGATIVE (NEGATIVE)
[2022-08-30 17:50] LABS: ANION GAP 14.8 (8-16); CARBON DIOXIDE 26.9 mmol/L (21-32); CREATININE 0.9 mg/dL (0.6-1.3); POTASSIUM 4.7 mmol/L (3.5-5.1); TOTAL BILIRUBIN 0.5 mg/dL (0.0-1.0)
--- NOTE | 2022-08-30 18:15 | NUR ---
DR GONZALEZ CALLED NO RESPONSE
--- NOTE | 2022-08-30 18:17 | NUR ---
PT SEEN WALKING OUT ON THE STREETS, PATIENT LEFT WITHOUT BEING SEEN BY DR. GONZALEZ. NO FURTHER CARE PROVIDED FOR PATIENT.
== END 2022-08-30 18:15 | disposition left against medical advice (07) ==
LOC: MED 15:40
DX: R10.9 Unspecified abdominal pain (principal); R11.2 Nausea with vomiting, unspecified; Z53.21 Procedure and treatment not carried out due to patient leaving prior to being seen by health care provider
CPT/HCPCS: 36415; 80053; 81001; 83690; 85025; 87086; 99281

== ENCOUNTER 2022-09-09 18:45 | Emergency (ER) | payer MEDICAID ==
[~2022-09-09] VITALS: Ht 147.3 cm; Wt 87.1 kg
[2022-09-09 18:54] VITALS: BP 145/78
[2022-09-09 19:39] LABS: BASOPHILS # (AUTO) 0.1 K/uL (0.00-0.22); BASOPHILS % (AUTO) 0.7 % (0.0-2.0); EOSINOPHILS # (AUTO) 0.2 K/uL (0-0.4); EOSINOPHILS % (AUTO) 1.9 % (0.0-4.0); HEMATOCRIT 42.1 % (36-48); HEMOGLOBIN 14.6 g/dL (12.0-16.0); LYMPHOCYTES # (AUTO) 3.2 K/uL (2.5-16.5); LYMPHOCYTES % (AUTO) 40.1 % (20.5-51.1); MEAN CORPUSCULAR HEMOGLOBIN 32 pg (27-31); MEAN CORPUSCULAR HGB CONC 35 g/dL (33-37); MONOCYTES # (AUTO) 0.5 K/uL (0.8-1.0); MONOCYTES % (AUTO) 6.5 % (1.7-9.3); NEUTROPHILS % (AUTO) 50.8 % (42.2-75.2); PLATELET COUNT (AUTO) 254 K/uL (140-450); RED BLOOD CELL COUNT(AUTO) 4.63 MIL/uL (4.20-5.40); RED CELL DISTRIBUTION WIDTH 13.3 % (11.6-13.7); WHITE BLOOD COUNT (AUTO) 7.9 K/uL (4.8-10.8)
[2022-09-09 19:40] LABS: APPEARANCE,URINE CLEAR (CLEAR); BILIRUBIN,URINE NEGATIVE (NEGATIVE); BLOOD, URINE 3+ (NEGATIVE); COLOR,URINE YELLOW (YELLOW); LEUKOCYTE ESTERASE ,URINE NEGATIVE (NEGATIVE); NITRITE, URINE NEGATIVE (NEGATIVE); UGLUCOSE NEGATIVE (NEGATIVE)
[2022-09-09 19:53] LABS: ALBUMIN 3.8 g/dL (3.4-5.0); ANION GAP 10.7 (8-16); CARBON DIOXIDE 29.9 mmol/L (21-32); CREATININE 0.9 mg/dL (0.6-1.3); POTASSIUM 4.6 mmol/L (3.5-5.1); TOTAL BILIRUBIN 0.3 mg/dL (0.0-1.0)
[2022-09-09 19:54] LABS: RBC,URINE 0-5 /HPF (0-5); WBC,URINE 0-5 /HPF (0-5)
--- NOTE | 2022-09-09 21:34 | NUR ---
PT TAKEN TO BED 3
--- NOTE | 2022-09-09 22:03 | NUR ---
Patient resting in bed, A/Ox4, chest rise and fall symmetrical, no s/s of distress, on monitor.
[2022-09-09] MEDS ORDERED: HYDROcodone/APAP 5/325 MG 1 TAB TAB PO ONE (22:20)
[2022-09-09] MEDS ORDERED: KETOROLAC 30 MG/ML VIAL IM ONE (22:20)
--- NOTE | 2022-09-09 22:52 | NUR ---
PT RETURN FROM CT
[2022-09-09] MEDS ORDERED: ONDANSETRON 4 MG/2 ML VIAL IVP ONE (23:00)
[2022-09-09] MEDS ORDERED: MORPHINE SULFATE 4 MG/ML SYR IVP ONE (23:00)
[2022-09-09] MEDS ORDERED: NACL 0.9% 1,000 ML IV ONE (23:00)
[2022-09-09 23:53] VITALS: BP 121/74
--- NOTE | 2022-09-09 23:55 | NUR ---
Patient resting in bed, A/Ox4, chest rise and fall symmetrical, no s/s of distress, on monitor.
[2022-09-10] MEDS ORDERED: diphenhydrAMINE 50 MG/ML VIAL IVP ONE
[2022-09-10] MEDS ORDERED: ACET-5629 PO (00:02)
[2022-09-10] MEDS ORDERED: ONDA-188 PO (00:02)
== END 2022-09-10 00:32 | disposition home or self-care (01) ==
LOC: MED 18:45
DX: R10.9 Unspecified abdominal pain (principal); R31.29 Other microscopic hematuria; R30.0 Dysuria; E11.9 Type 2 diabetes mellitus without complications; Z98.890 Other specified postprocedural states; Z79.899 Other long term (current) drug therapy; Z79.1 Long term (current) use of non-steroidal anti-inflammatories (NSAID); Z79.891 Long term (current) use of opiate analgesic; Z79.2 Long term (current) use of antibiotics; Z88.6 Allergy status to analgesic agent
CPT/HCPCS: 36415; 74176; 80053; 81001; 81025; 83690; 85025; 96361; 96374; 96375; 99285; J1200; J2270; J2405; J7030; J1885

== ENCOUNTER 2022-09-28 10:31 | Emergency (ER) | payer MEDICAID ==
[~2022-09-28] VITALS: Ht 157.5 cm; Wt 88.0 kg
[2022-09-28 11:08] VITALS: BP 143/84
--- NOTE | 2022-09-28 11:12 | NUR ---
TO BED 3, ACCU CHECK [phone] IN TRIAGE
[2022-09-28] MEDS ORDERED: ONDANSETRON 4 MG/2 ML VIAL IVP ONE (11:15)
[2022-09-28 11:29] LABS: APPEARANCE,URINE CLEAR (CLEAR); BILIRUBIN,URINE NEGATIVE (NEGATIVE); BLOOD, URINE 3+ (NEGATIVE); COLOR,URINE YELLOW (YELLOW); LEUKOCYTE ESTERASE ,URINE NEGATIVE (NEGATIVE); NITRITE, URINE NEGATIVE (NEGATIVE); UGLUCOSE 3+ (NEGATIVE)
[2022-09-28 11:29] LABS: BASOPHILS % (AUTO) 0.5 % (0.0-2.0); EOSINOPHILS # (AUTO) 0.1 K/uL (0-0.4); EOSINOPHILS % (AUTO) 1.7 % (0.0-4.0); HEMATOCRIT 39.9 % (36-48); LYMPHOCYTES # (AUTO) 2.5 K/uL (2.5-16.5); LYMPHOCYTES % (AUTO) 31.7 % (20.5-51.1); MEAN CORPUSCULAR HEMOGLOBIN 32 pg (27-31); MEAN CORPUSCULAR HGB CONC 35 g/dL (33-37); MEAN CORPUSCULAR VOLUME 90.6 fL (80-94); MONOCYTES # (AUTO) 0.4 K/uL (0.8-1.0); MONOCYTES % (AUTO) 5.4 % (1.7-9.3); NEUTROPHILS # (AUTO) 4.7 K/uL (1.8-7.7); NEUTROPHILS % (AUTO) 60.7 % (42.2-75.2); PLATELET COUNT (AUTO) 218 K/uL (140-450); RED BLOOD CELL COUNT(AUTO) 4.41 MIL/uL (4.20-5.40); RED CELL DISTRIBUTION WIDTH 13.6 % (11.6-13.7); WHITE BLOOD COUNT (AUTO) 7.8 K/uL (4.8-10.8)
--- NOTE | 2022-09-28 11:29 | NUR ---
patient presents to er c/o left upper quadrant pain for 4 days associated with nausea.
[2022-09-28] MEDS ORDERED: MORPHINE SULFATE 4 MG/ML SYR IVP ONE (11:40)
[2022-09-28 12:01] LABS: RBC,URINE 80-100 /HPF (0-5); WBC,URINE 0-5 /HPF (0-5)
[2022-09-28 12:10] LABS: ALBUMIN 3.6 g/dL (3.4-5.0); ANION GAP 10.3 (8-16); CARBON DIOXIDE 30.1 mmol/L (21-32); CREATININE 0.9 mg/dL (0.6-1.3); POTASSIUM 4.4 mmol/L (3.5-5.1); TOTAL BILIRUBIN 0.4 mg/dL (0.0-1.0)
[2022-09-28] MEDS ORDERED: OXYC-79 PO (14:06)
[2022-09-28] MEDS ORDERED: CEPH500C16 PO (14:06)
[2022-09-28] MEDS ORDERED: ACET-2619 PO (14:06)
[2022-09-28 14:30] VITALS: BP 110/60
--- NOTE | 2022-09-28 14:32 | NUR ---
patient reassess condition stable signed AMA left er alert, oriented x4 ambulatory with steady gait.
== END 2022-09-28 14:30 | disposition left against medical advice (07) ==
LOC: MED 10:31
DX: N20.0 Calculus of kidney (principal); E11.9 Type 2 diabetes mellitus without complications; Z88.5 Allergy status to narcotic agent; Z79.1 Long term (current) use of non-steroidal anti-inflammatories (NSAID); Z88.8 Allergy status to other drugs, medicaments and biological substances; Z79.4 Long term (current) use of insulin; Z79.899 Other long term (current) drug therapy
CPT/HCPCS: 36415; 74177; 80053; 81001; 83690; 85025; 87086; 96374; 96375; 99285; J2270; J2405; Q9967

== ENCOUNTER 2022-10-18 16:16 | Emergency (ER) | payer MEDICAID ==
[~2022-10-18] VITALS: Ht 149.9 cm; Wt 88.0 kg
[~2022-10-18 16:16] MED LIST changes: +ACET-2619 PO; +CEPH500C16 PO
[2022-10-18 17:54] VITALS: BP 146/78
[2022-10-18 19:25] LABS: APPEARANCE,URINE CLEAR (CLEAR); BILIRUBIN,URINE NEGATIVE (NEGATIVE); BLOOD, URINE NEGATIVE (NEGATIVE); COLOR,URINE YELLOW (YELLOW); LEUKOCYTE ESTERASE ,URINE NEGATIVE (NEGATIVE); NITRITE, URINE NEGATIVE (NEGATIVE); UGLUCOSE 3+ (NEGATIVE)
[2022-10-18] MEDS ORDERED: NACL 0.9% 1,000 ML IV ONE (19:25)
[2022-10-18] MEDS ORDERED: MORPHINE SULFATE 4 MG/ML SYR IVP ONE (19:25)
[2022-10-18] MEDS ORDERED: ONDANSETRON 4 MG/2 ML VIAL IVP ONE (19:25)
[2022-10-18 20:23] LABS: ALBUMIN 4.1 g/dL (3.4-5.0); ANION GAP 13.4 (8-16); ASPARTATE AMINOTRANSFERASE 18 U/L (15-37); CARBON DIOXIDE 25.6 mmol/L (21-32); CHLORIDE 102 mmol/L (98-107); CREATININE 0.9 mg/dL (0.6-1.3); GFR ARICAN-AMERICAN 84 mL/min (>90); GLUCOSE 320 mg/dL (74-106); SODIUM SERUM 137 mmol/L (136-145); TOTAL BILIRUBIN 0.6 mg/dL (0.0-1.0); UREA NITROGEN, BLOOD 7 mg/dL (7-18)
[2022-10-18] MEDS ORDERED: ONDANSETRON 4 MG/2 ML VIAL ONE (20:27)
[2022-10-18] MEDS ORDERED: MORPHINE SULFATE 4 MG/ML SYR ONE (20:28)
[2022-10-18 20:36] LABS: LIPASE 55 U/L (73-393)
[2022-10-18 20:42] LABS: BASOPHILS % (AUTO) 0.5 % (0.0-2.0); EOSINOPHILS # (AUTO) 0.1 K/uL (0-0.4); EOSINOPHILS % (AUTO) 1.6 % (0.0-4.0); HEMATOCRIT 43.5 % (36-48); HEMOGLOBIN 14.9 g/dL (12.0-16.0); LYMPHOCYTES # (AUTO) 3.1 K/uL (2.5-16.5); LYMPHOCYTES % (AUTO) 40.3 % (20.5-51.1); MEAN CORPUSCULAR HEMOGLOBIN 32 pg (27-31); MEAN CORPUSCULAR HGB CONC 34 g/dL (33-37); MEAN CORPUSCULAR VOLUME 92.2 fL (80-94); MONOCYTES # (AUTO) 0.5 K/uL (0.8-1.0); MONOCYTES % (AUTO) 6.4 % (1.7-9.3); NEUTROPHILS # (AUTO) 3.9 K/uL (1.8-7.7); NEUTROPHILS % (AUTO) 51.2 % (42.2-75.2); PLATELET COUNT (AUTO) 246 K/uL (140-450); RED BLOOD CELL COUNT(AUTO) 4.71 MIL/uL (4.20-5.40); RED CELL DISTRIBUTION WIDTH 13.7 % (11.6-13.7); WHITE BLOOD COUNT (AUTO) 7.7 K/uL (4.8-10.8)
[2022-10-18] MEDS ORDERED: diphenhydrAMINE 50 MG/ML VIAL IVP ONE (21:55)
[2022-10-18] MEDS ORDERED: METOCLOPRAMIDE 10 MG/2 ML INJ VIAL IVP ONE (21:55)
[2022-10-18] MEDS ORDERED: ONDA-188 SL (22:58)
[2022-10-18 23:06] VITALS: BP 121/53
== END 2022-10-18 23:06 | disposition home or self-care (01) ==
LOC: MED 16:16
DX: R07.9 Chest pain, unspecified (principal); R51.9 Headache, unspecified; R10.9 Unspecified abdominal pain; E11.65 Type 2 diabetes mellitus with hyperglycemia; Z79.899 Other long term (current) drug therapy; Z79.1 Long term (current) use of non-steroidal anti-inflammatories (NSAID); Z79.4 Long term (current) use of insulin; Z79.2 Long term (current) use of antibiotics; Z88.6 Allergy status to analgesic agent
CPT/HCPCS: 36415; 70450; 71045; 74176; 80053; 81003; 83690; 84484; 85025; 93005; 96361; 96374; 96375; 99285; J1200; J2270; J2405; J2765

== ENCOUNTER 2022-11-08 13:03 | Emergency (ER) | payer MEDICAID ==
[~2022-11-08] VITALS: Ht 134.6 cm; Wt 87.5 kg
[2022-11-08 13:10] VITALS: BP 181/98
--- NOTE | 2022-11-08 15:10 | NUR ---
56YO FEMALE PT C/O L RIB PAIN X4DAYS. RADIATION TO L HIP AND LEG. REPORTS ONSET S/P MECH FALL . -[id number]. PAIN AT MOST ON MOVEMENT, TENDER TO TOUCH. NO VISIBLE INJURIES NOTED. DENIES NUMBING, LOSS OF SENSATION OR RELIEF AFTER TYLENOL. PT AAOX4, AMB W/ STEADY GAIT. HOB POSITIONED PER COMFORT HX: DIABETES ALLERGIES: IBUPROFEN, TORADOL, NAPROXEN
[2022-11-08] MEDS ORDERED: MORPHINE SULFATE 4 MG/ML SYR IM ONE ×2 (16:15→17:30)
[2022-11-08] MEDS ORDERED: ONDANSETRON 4 MG ODT PO ONE (16:15)
--- NOTE | 2022-11-08 16:16 | NUR ---
MD TAYLOR AT BEDSIDE FOR EVALUATION
[2022-11-08 16:30] VITALS: BP 139/66
[2022-11-08] MEDS ORDERED: ONDA8TAB87 PO (16:31)
[2022-11-08] MEDS ORDERED: HYDR-5191 PO (16:31)
--- NOTE | 2022-11-08 18:35 | NUR ---
Note suryachloe in EDM - 11/08/22 at 1851 by PHSEP Patient discharged with v/s stable. Written and verbal after care instructions FOR RIB CONTUSION given and explained. Patient alert, oriented and verbalized understanding of instructions. Ambulatory with steady gait. All questions addressed prior to discharge. ID band removed. Patient advised to follow up with PMD. Rx of HYDROCODONE AND ZOFRAN given. Opportunity to ask questions provided and answered.
--- NOTE | 2022-11-08 18:35 | NUR ---
Patient discharged with v/s stable. Written and verbal after care instructions FOR RIB CONTUSION given and explained. Ambulatory with steady gait. ID band removed. Patient advised to follow up with PMD. Rx of HYDROCODONE AND ZOFRAN given. Opportunity to ask questions provided and answered.
== END 2022-11-08 18:35 | disposition home or self-care (01) ==
LOC: MED 13:03
DX: S20.212A Contusion of left front wall of thorax, initial encounter (principal); E11.9 Type 2 diabetes mellitus without complications; Z98.890 Other specified postprocedural states; Z79.899 Other long term (current) drug therapy; Z79.4 Long term (current) use of insulin; Z79.1 Long term (current) use of non-steroidal anti-inflammatories (NSAID); Z79.2 Long term (current) use of antibiotics; Z88.6 Allergy status to analgesic agent; W18.39XA Other fall on same level, initial encounter; Y92.89 Other specified places as the place of occurrence of the external cause; Y93.89 Activity, other specified; Y99.8 Other external cause status
CPT/HCPCS: 71101; 96372; 99284; J2270; Q0162

== ENCOUNTER 2022-11-20 19:17 | Emergency (ER) | payer MEDICAID ==
[~2022-11-20] VITALS: Ht 157.5 cm; Wt 87.5 kg
[~2022-11-20 19:17] MED LIST changes: +HYDR-5191 PO
[2022-11-20 19:30] VITALS: BP 159/82; PULSE 85; RESP 17; TEMP 97.6; O2SAT 97
--- NOTE | 2022-11-20 19:33 | NUR ---
to lobby a/w bed ambulatory
--- NOTE | 2022-11-20 19:55 | NUR ---
URINE SAMPLE COLLECTED AND TAKEN TO LAB FOR ANALYSIS
[2022-11-20 19:58] LABS: APPEARANCE,URINE CLEAR (CLEAR); BILIRUBIN,URINE NEGATIVE (NEGATIVE); BLOOD, URINE NEGATIVE (NEGATIVE); COLOR,URINE YELLOW (YELLOW); LEUKOCYTE ESTERASE ,URINE NEGATIVE (NEGATIVE); NITRITE, URINE NEGATIVE (NEGATIVE); UGLUCOSE 3+ (NEGATIVE)
[2022-11-20 20:08] LABS: BASOPHILS % (AUTO) 0.4 % (0.0-2.0); EOSINOPHILS # (AUTO) 0.1 K/uL (0-0.4); EOSINOPHILS % (AUTO) 1.1 % (0.0-4.0); HEMATOCRIT 40.7 % (36-48); HEMOGLOBIN 14.1 g/dL (12.0-16.0); LYMPHOCYTES # (AUTO) 2.7 K/uL (2.5-16.5); LYMPHOCYTES % (AUTO) 31.1 % (20.5-51.1); MEAN CORPUSCULAR HEMOGLOBIN 32 pg (27-31); MEAN CORPUSCULAR HGB CONC 35 g/dL (33-37); MEAN CORPUSCULAR VOLUME 92.1 fL (80-94); MONOCYTES # (AUTO) 0.5 K/uL (0.8-1.0); MONOCYTES % (AUTO) 5.8 % (1.7-9.3); NEUTROPHILS # (AUTO) 5.4 K/uL (1.8-7.7); NEUTROPHILS % (AUTO) 61.6 % (42.2-75.2); PLATELET COUNT (AUTO) 237 K/uL (140-450); RED BLOOD CELL COUNT(AUTO) 4.42 MIL/uL (4.20-5.40); RED CELL DISTRIBUTION WIDTH 13.5 % (11.6-13.7); WHITE BLOOD COUNT (AUTO) 8.8 K/uL (4.8-10.8)
--- NOTE | 2022-11-20 20:31 | NUR ---
PT TO CT VIA W/C
[2022-11-20 20:55] LABS: ALBUMIN 3.6 g/dL (3.4-5.0); ANION GAP 13.3 (8-16); CARBON DIOXIDE 27.1 mmol/L (21-32); CREATININE 0.9 mg/dL (0.6-1.3); POTASSIUM 4.4 mmol/L (3.5-5.1); TOTAL BILIRUBIN 0.4 mg/dL (0.0-1.0)
--- NOTE | 2022-11-20 21:25 | NUR ---
PT TO BED #7
[2022-11-20] MEDS ORDERED: MORPHINE SULFATE 4 MG/ML SYR IM ONE ×2 (22:20→22:55)
[2022-11-20] MEDS ORDERED: ONDANSETRON 4 MG/2 ML VIAL IM ONE (22:20)
[2022-11-20] MEDS ORDERED: HYDROcodone/APAP 10/325 MG 1 TAB TAB PO ONE (22:30)
[2022-11-20] MEDS ORDERED: ACET-10509 PO (22:42)
[2022-11-20] MEDS ORDERED: BEN10 PO (22:42)
[2022-11-20] MEDS ORDERED: TAMS0.4C96 PO (22:42)
--- NOTE | 2022-11-20 23:15 | NUR ---
Patient discharged with v/s stable. Written and verbal after care instructions given and explained. Patient alert, oriented and verbalized understanding of instructions. Ambulatory with steady gait. All questions addressed prior to discharge. ID band removed. Patient advised to follow up with PMD. Rx of ACETAMINOPHEN, BENTYL, FLOMAX given. Patient educated on indication of medication including possible reaction and side effects. Opportunity to ask questions provided and answered. SON BEDSIDE AND PICKED UP MOTHER
== END 2022-11-20 23:15 | disposition home or self-care (01) ==
LOC: MED 19:17
DX: N20.0 Calculus of kidney (principal); E11.65 Type 2 diabetes mellitus with hyperglycemia; Z79.1 Long term (current) use of non-steroidal anti-inflammatories (NSAID); Z88.5 Allergy status to narcotic agent; Z88.8 Allergy status to other drugs, medicaments and biological substances; Z79.899 Other long term (current) drug therapy
CPT/HCPCS: 36415; 74176; 76705; 80053; 81003; 83690; 85025; 96372; 99285; J2270; Q0092

== ENCOUNTER 2022-12-10 18:16 | Emergency (ER) | payer MEDICAID ==
[~2022-12-10] VITALS: Ht 157.5 cm; Wt 81.2 kg
[~2022-12-10 18:16] MED LIST changes: +BEN10 PO
[2022-12-10 19:13] VITALS: BP 162/57; PULSE 88; RESP 18; TEMP 98; O2SAT 99
[2022-12-10 20:04] LABS: BASOPHILS % (AUTO) 0.7 % (0.0-2.0); EOSINOPHILS # (AUTO) 0.1 K/uL (0-0.4); HEMATOCRIT 41.7 % (36-48); HEMOGLOBIN 14.4 g/dL (12.0-16.0); LYMPHOCYTES # (AUTO) 2.6 K/uL (2.5-16.5); LYMPHOCYTES % (AUTO) 39.2 % (20.5-51.1); MEAN CORPUSCULAR HEMOGLOBIN 32 pg (27-31); MEAN CORPUSCULAR HGB CONC 35 g/dL (33-37); MEAN CORPUSCULAR VOLUME 92.7 fL (80-94); MONOCYTES # (AUTO) 0.5 K/uL (0.8-1.0); NEUTROPHILS # (AUTO) 3.3 K/uL (1.8-7.7); NEUTROPHILS % (AUTO) 50.1 % (42.2-75.2); PLATELET COUNT (AUTO) 228 K/uL (140-450); RED CELL DISTRIBUTION WIDTH 13.4 % (11.6-13.7); WHITE BLOOD COUNT (AUTO) 6.5 K/uL (4.8-10.8)
[2022-12-10 20:16] LABS: APPEARANCE,URINE CLEAR (CLEAR); BILIRUBIN,URINE NEGATIVE (NEGATIVE); BLOOD, URINE NEGATIVE (NEGATIVE); COLOR,URINE YELLOW (YELLOW); LEUKOCYTE ESTERASE ,URINE NEGATIVE (NEGATIVE); NITRITE, URINE NEGATIVE (NEGATIVE); UGLUCOSE 3+ (NEGATIVE)
[2022-12-10 20:18] LABS: ALBUMIN 3.6 g/dL (3.4-5.0); ANION GAP 13.8 (8-16); CARBON DIOXIDE 24.4 mmol/L (21-32); POTASSIUM 4.2 mmol/L (3.5-5.1); TOTAL BILIRUBIN 0.4 mg/dL (0.0-1.0)
[2022-12-10] MEDS ORDERED: ONDANSETRON 4 MG ODT PO ONE (21:20)
[2022-12-10] MEDS ORDERED: HYDROcodone/APAP 5/325 MG 1 TAB TAB PO ONE (21:20)
[2022-12-10] MEDS ORDERED: ONDANSETRON 4 MG ODT ONE (22:59)
[2022-12-10] MEDS ORDERED: HYDROcodone/APAP 5/325 MG 1 TAB TAB ONE (23:00)
[2022-12-10] MEDS ORDERED: HYDR-5191 PO (23:18)
[2022-12-10] MEDS ORDERED: ONDA-188 PO (23:18)
[2022-12-10 23:50] VITALS: BP 162/57; PULSE 88; RESP 18; TEMP 98; O2SAT 99
--- NOTE | 2022-12-10 23:50 | NUR ---
Patient discharged with v/s stable. Written and verbal after care instructions given and explained. New rx norco and zofran. Patient verbalized understanding. Ambulatory with steady gait. Accompanied by daughter. All questions addressed prior to discharge. Advised to follow up with PMD.
== END 2022-12-10 23:50 | disposition home or self-care (01) ==
LOC: MED 18:16
DX: N20.0 Calculus of kidney (principal); R11.2 Nausea with vomiting, unspecified; E11.9 Type 2 diabetes mellitus without complications; Z88.5 Allergy status to narcotic agent; Z79.1 Long term (current) use of non-steroidal anti-inflammatories (NSAID); Z88.8 Allergy status to other drugs, medicaments and biological substances; Z79.899 Other long term (current) drug therapy; Z79.4 Long term (current) use of insulin
CPT/HCPCS: 36415; 74176; 80053; 81003; 83690; 85025; 99284; Q0162

== ENCOUNTER 2023-01-02 13:05 | Emergency (ER) | payer MEDICAID ==
[~2023-01-02] VITALS: Ht 160 cm; Wt 84.9 kg
[2023-01-02 13:27] VITALS: BP 126/87; PULSE 86; RESP 20; TEMP 97.7; O2SAT 95
[2023-01-02] MEDS ORDERED: cefTRIAXone 1,000 MG in LIDOCAINE MPF 1% 2.1 ML IM ONE (14:35)
[2023-01-02] MEDS ORDERED: ONDANSETRON 4 MG ODT PO ONE (14:35)
[2023-01-02] MEDS ORDERED: HYDROcodone/APAP 5/325 MG 1 TAB TAB PO ONE (14:35)
[2023-01-02 14:43] LABS: APPEARANCE,URINE CLEAR (CLEAR); BILIRUBIN,URINE NEGATIVE (NEGATIVE); BLOOD, URINE NEGATIVE (NEGATIVE); COLOR,URINE YELLOW (YELLOW); LEUKOCYTE ESTERASE ,URINE NEGATIVE (NEGATIVE); NITRITE, URINE NEGATIVE (NEGATIVE); PROTEIN,URINE NEGATIVE (NEGATIVE); UGLUCOSE 3+ (NEGATIVE); UROBILINOGEN,URINE 0.2 EU/dL (0.2 - 1)
[2023-01-02] MEDS ORDERED: cefTRIAXone 1,000 MG VIAL ONE (15:16)
[2023-01-02] MEDS ORDERED: LIDOCAINE MPF 1% 5 ML ONE (15:17)
[2023-01-02 17:41] LABS: BASOPHILS % (AUTO) 0.5 % (0.0-2.0); EOSINOPHILS # (AUTO) 0.1 K/uL (0-0.4); EOSINOPHILS % (AUTO) 1.6 % (0.0-4.0); HEMATOCRIT 43.5 % (36-48); LYMPHOCYTES # (AUTO) 2.4 K/uL (2.5-16.5); LYMPHOCYTES % (AUTO) 35.3 % (20.5-51.1); MEAN CORPUSCULAR HEMOGLOBIN 32 pg (27-31); MEAN CORPUSCULAR HGB CONC 34 g/dL (33-37); MEAN CORPUSCULAR VOLUME 93.5 fL (80-94); MONOCYTES # (AUTO) 0.5 K/uL (0.8-1.0); MONOCYTES % (AUTO) 7.5 % (1.7-9.3); NEUTROPHILS # (AUTO) 3.7 K/uL (1.8-7.7); NEUTROPHILS % (AUTO) 55.1 % (42.2-75.2); PLATELET COUNT (AUTO) 231 K/uL (140-450); RED BLOOD CELL COUNT(AUTO) 4.65 MIL/uL (4.20-5.40); RED CELL DISTRIBUTION WIDTH 13.4 % (11.6-13.7); WHITE BLOOD COUNT (AUTO) 6.8 K/uL (4.8-10.8)
[2023-01-02 17:51] LABS: ALBUMIN 3.7 g/dL (3.4-5.0); ANION GAP 13.9 (8-16); CARBON DIOXIDE 26.4 mmol/L (21-32); POTASSIUM 4.3 mmol/L (3.5-5.1); TOTAL BILIRUBIN 0.5 mg/dL (0.0-1.0); TOTAL PROTEIN, SERUM 7.5 g/dL (6.4-8.2)
[2023-01-02] MEDS ORDERED: MORPHINE SULFATE 4 MG/ML SYR IM ONE (18:15)
[2023-01-02] MEDS ORDERED: ACET-8905 PO (18:16)
[2023-01-02 18:33] VITALS: BP 123/82; PULSE 76; RESP 15; TEMP 98.1; O2SAT 99
== END 2023-01-02 18:33 | disposition home or self-care (01) ==
LOC: MED 13:05
DX: N23 Unspecified renal colic (principal); N20.0 Calculus of kidney; E11.9 Type 2 diabetes mellitus without complications; Z88.5 Allergy status to narcotic agent; Z79.1 Long term (current) use of non-steroidal anti-inflammatories (NSAID); Z88.8 Allergy status to other drugs, medicaments and biological substances; Z79.4 Long term (current) use of insulin; Z79.899 Other long term (current) drug therapy
CPT/HCPCS: 36415; 74176; 80053; 81003; 83690; 85025; 87086; 96372; 99285; J0696; J2001; J2270; Q0162

== ENCOUNTER 2023-01-22 09:06 | Emergency (ER) | payer MEDICAID ==
[~2023-01-22] VITALS: Ht 152.4 cm; Wt 85.7 kg
[2023-01-22 09:49] VITALS: BP 154/62; PULSE 86; RESP 20; TEMP 98; O2SAT 99
[2023-01-22] MEDS ORDERED: MORPHINE SULFATE 4 MG/ML SYR IM ONE (10:35)
[2023-01-22] MEDS ORDERED: ONDANSETRON 4 MG ODT PO ONE (10:35)
[2023-01-22 10:49] VITALS: TEMP 98.1
[2023-01-22 11:26] LABS: APPEARANCE,URINE CLEAR (CLEAR); BILIRUBIN,URINE NEGATIVE (NEGATIVE); BLOOD, URINE NEGATIVE (NEGATIVE); COLOR,URINE YELLOW (YELLOW); LEUKOCYTE ESTERASE ,URINE NEGATIVE (NEGATIVE); NITRITE, URINE POSITIVE (NEGATIVE); PROTEIN,URINE TRACE (NEGATIVE); UGLUCOSE 3+ (NEGATIVE); UROBILINOGEN,URINE 0.2 EU/dL (0.2 - 1)
[2023-01-22 11:40] LABS: BACTERIA,URINE FEW /HPF (None Seen); RBC,URINE 0-5 /HPF (0-5); SQUAMOUS EPITHELIAL CELL,UR 0-3 (FEW) /LPF (0-3 (FEW)); WBC,URINE 0 /HPF (0-5)
[2023-01-22 11:42] LABS: BASOPHILS # (AUTO) 0.1 K/uL (0.00-0.22); BASOPHILS % (AUTO) 0.7 % (0.0-2.0); EOSINOPHILS # (AUTO) 0.1 K/uL (0-0.4); EOSINOPHILS % (AUTO) 1.1 % (0.0-4.0); HEMATOCRIT 41.1 % (36-48); HEMOGLOBIN 14.2 g/dL (12.0-16.0); LYMPHOCYTES # (AUTO) 2.4 K/uL (2.5-16.5); LYMPHOCYTES % (AUTO) 25.4 % (20.5-51.1); MEAN CORPUSCULAR HEMOGLOBIN 32 pg (27-31); MEAN CORPUSCULAR HGB CONC 35 g/dL (33-37); MEAN CORPUSCULAR VOLUME 93.2 fL (80-94); MONOCYTES # (AUTO) 0.7 K/uL (0.8-1.0); MONOCYTES % (AUTO) 6.9 % (1.7-9.3); NEUTROPHILS # (AUTO) 6.3 K/uL (1.8-7.7); NEUTROPHILS % (AUTO) 65.9 % (42.2-75.2); PLATELET COUNT (AUTO) 230 K/uL (140-450); RED BLOOD CELL COUNT(AUTO) 4.41 MIL/uL (4.20-5.40); RED CELL DISTRIBUTION WIDTH 13.2 % (11.6-13.7); WHITE BLOOD COUNT (AUTO) 9.6 K/uL (4.8-10.8)
[2023-01-22 11:58] LABS: ALBUMIN 3.2 g/dL (3.4-5.0); ANION GAP 10.3 (8-16); CALCIUM 8.8 mg/dL (8.5-10.1); CARBON DIOXIDE 26.7 mmol/L (21-32); CREATININE 0.9 mg/dL (0.6-1.3); TOTAL BILIRUBIN 0.4 mg/dL (0.0-1.0); TOTAL PROTEIN, SERUM 7.1 g/dL (6.4-8.2)
[2023-01-22] MEDS ORDERED: TRAM-748 PO (12:20)
[2023-01-22 12:34] VITALS: BP 114/65; PULSE 74; RESP 17; O2SAT 98
== END 2023-01-22 12:34 | disposition home or self-care (01) ==
LOC: MED 09:06
DX: N23 Unspecified renal colic (principal); E11.9 Type 2 diabetes mellitus without complications; Z88.5 Allergy status to narcotic agent; Z79.1 Long term (current) use of non-steroidal anti-inflammatories (NSAID); Z79.4 Long term (current) use of insulin; Z79.899 Other long term (current) drug therapy
CPT/HCPCS: 36415; 80053; 81001; 85025; 96372; 99283; J2270; Q0162

== ENCOUNTER 2023-02-02 07:31 | Emergency (ER) | payer MEDICAID ==
[~2023-02-02] VITALS: Ht 160 cm; Wt 77.1 kg
[2023-02-02 07:41] VITALS: BP 143/83; PULSE 98; RESP 20; TEMP 97.9; O2SAT 97
[2023-02-02 08:00] VITALS: O2SAT 97
[2023-02-02] MEDS ORDERED: ONDANSETRON 4 MG/2 ML VIAL IVP ONE (08:20)
[2023-02-02] MEDS ORDERED: NACL 0.9% 1,000 ML IV SCH (08:20)
[2023-02-02] MEDS ORDERED: MORPHINE SULFATE 4 MG/ML SYR IVP ONE ×2 (08:20→09:35)
[2023-02-02 09:19] LABS: APPEARANCE,URINE CLEAR (CLEAR); BILIRUBIN,URINE NEGATIVE (NEGATIVE); BLOOD, URINE NEGATIVE (NEGATIVE); COLOR,URINE YELLOW (YELLOW); LEUKOCYTE ESTERASE ,URINE NEGATIVE (NEGATIVE); NITRITE, URINE NEGATIVE (NEGATIVE); PROTEIN,URINE NEGATIVE (NEGATIVE); UGLUCOSE 3+ (NEGATIVE); UROBILINOGEN,URINE 0.2 EU/dL (0.2 - 1)
[2023-02-02 09:20] LABS: BASOPHILS % (AUTO) 0.7 % (0.0-2.0); EOSINOPHILS # (AUTO) 0.1 K/uL (0-0.4); HEMATOCRIT 39.4 % (36-48); HEMOGLOBIN 13.5 g/dL (12.0-16.0); LYMPHOCYTES # (AUTO) 1.5 K/uL (2.5-16.5); LYMPHOCYTES % (AUTO) 24.7 % (20.5-51.1); MEAN CORPUSCULAR HEMOGLOBIN 32 pg (27-31); MEAN CORPUSCULAR HGB CONC 34 g/dL (33-37); MEAN CORPUSCULAR VOLUME 93.5 fL (80-94); MONOCYTES # (AUTO) 0.4 K/uL (0.8-1.0); MONOCYTES % (AUTO) 6.2 % (1.7-9.3); NEUTROPHILS # (AUTO) 4.1 K/uL (1.8-7.7); NEUTROPHILS % (AUTO) 66.4 % (42.2-75.2); PLATELET COUNT (AUTO) 223 K/uL (140-450); RED BLOOD CELL COUNT(AUTO) 4.21 MIL/uL (4.20-5.40); RED CELL DISTRIBUTION WIDTH 13.6 % (11.6-13.7); WHITE BLOOD COUNT (AUTO) 6.1 K/uL (4.8-10.8)
[2023-02-02 09:41] LABS: ALBUMIN 3.5 g/dL (3.4-5.0); ANION GAP 17.3 (8-16); CALCIUM 8.7 mg/dL (8.5-10.1); CARBON DIOXIDE 21.5 mmol/L (21-32); CREATININE 1.2 mg/dL (0.6-1.3); POTASSIUM 3.8 mmol/L (3.5-5.1); TOTAL BILIRUBIN 0.6 mg/dL (0.0-1.0); TOTAL PROTEIN, SERUM 7.1 g/dL (6.4-8.2)
[2023-02-02 09:46] LABS: LACTIC ACID 4.2 mmol/L (0.4-2.0)
[2023-02-02] MEDS ORDERED: NACL 0.9% 1,000 ML IV ONE ×2 (09:50→10:50)
[2023-02-02] MEDS ORDERED: INSULIN REGULAR, HUMAN 100 UNIT/ML VIAL SUBQ ONE (09:50)
[2023-02-02 10:10] LABS: INR 0.88 (0.8-1.2); PARTIAL THROMBOPLASTIN TIME 27.4 secs (22-35.6); PROTHROMBIN TIME 9.3 secs (10.8-13.4)
[2023-02-02] MEDS ORDERED: HYDROcodone/APAP 10/325 MG 1 TAB TAB PO ONE (13:25)
[2023-02-02] MEDS ORDERED: HYDR-5080 PO (13:55)
[2023-02-02] MEDS ORDERED: LID5T TP (13:55)
[2023-02-02 14:10] VITALS: BP 143/83; PULSE 71; RESP 20; TEMP 97.9; O2SAT 97
== END 2023-02-02 14:12 | disposition home or self-care (01) ==
LOC: MED 07:31
DX: N23 Unspecified renal colic (principal); N20.0 Calculus of kidney; D35.01 Benign neoplasm of right adrenal gland; E11.65 Type 2 diabetes mellitus with hyperglycemia; F17.290 Nicotine dependence, other tobacco product, uncomplicated; Z79.4 Long term (current) use of insulin; Z79.899 Other long term (current) drug therapy; Z88.8 Allergy status to other drugs, medicaments and biological substances; Z88.6 Allergy status to analgesic agent
CPT/HCPCS: 36415; 71045; 74176; 80053; 81003; 83605; 85025; 85610; 85730; 87040; 87086; 96361; 96374; 96375; 96376; 99285; J1815; J2270; J2405; J7030

== ENCOUNTER 2023-02-23 13:22 | Emergency (ER) | payer MEDICAID ==
[~2023-02-23] VITALS: Ht 157.5 cm; Wt 89.6 kg
[~2023-02-23 13:22] MED LIST changes: +LID5T TP
[2023-02-23 13:42] VITALS: BP 148/83; PULSE 93; RESP 20; TEMP 97.9; O2SAT 97
[2023-02-23] MEDS ORDERED: NACL 0.9% 1,000 ML IV ONE (14:40)
[2023-02-23] MEDS ORDERED: MORPHINE SULFATE 4 MG/ML SYR IVP ONE ×2 (14:45→16:35)
[2023-02-23 15:28] LABS: BASOPHILS # (AUTO) 0.1 K/uL (0.00-0.22); BASOPHILS % (AUTO) 0.6 % (0.0-2.0); EOSINOPHILS # (AUTO) 0.1 K/uL (0-0.4); EOSINOPHILS % (AUTO) 1.3 % (0.0-4.0); HEMOGLOBIN 14.2 g/dL (12.0-16.0); LYMPHOCYTES # (AUTO) 2.4 K/uL (2.5-16.5); LYMPHOCYTES % (AUTO) 28.6 % (20.5-51.1); MEAN CORPUSCULAR HEMOGLOBIN 32 pg (27-31); MEAN CORPUSCULAR HGB CONC 35 g/dL (33-37); MEAN CORPUSCULAR VOLUME 92.5 fL (80-94); MONOCYTES # (AUTO) 0.6 K/uL (0.8-1.0); MONOCYTES % (AUTO) 6.9 % (1.7-9.3); NEUTROPHILS # (AUTO) 5.3 K/uL (1.8-7.7); NEUTROPHILS % (AUTO) 62.6 % (42.2-75.2); PLATELET COUNT (AUTO) 246 K/uL (140-450); RED BLOOD CELL COUNT(AUTO) 4.43 MIL/uL (4.20-5.40); RED CELL DISTRIBUTION WIDTH 12.9 % (11.6-13.7); WHITE BLOOD COUNT (AUTO) 8.4 K/uL (4.8-10.8)
[2023-02-23 15:48] LABS: ALBUMIN 3.7 g/dL (3.4-5.0); ANION GAP 11.6 (8-16); CALCIUM 9.3 mg/dL (8.5-10.1); CARBON DIOXIDE 27.5 mmol/L (21-32); POTASSIUM 4.1 mmol/L (3.5-5.1); TOTAL BILIRUBIN 0.5 mg/dL (0.0-1.0); TOTAL PROTEIN, SERUM 7.6 g/dL (6.4-8.2)
[2023-02-23] MEDS ORDERED: ONDANSETRON 4 MG/2 ML VIAL IVP ONE (16:00)
[2023-02-23 16:28] LABS: APPEARANCE,URINE CLEAR (CLEAR); BILIRUBIN,URINE NEGATIVE (NEGATIVE); BLOOD, URINE 1+ (NEGATIVE); LEUKOCYTE ESTERASE ,URINE NEGATIVE (NEGATIVE); NITRITE, URINE NEGATIVE (NEGATIVE); PH,URINE 5.5 (5.0-9.0); PROTEIN,URINE NEGATIVE (NEGATIVE); UGLUCOSE 3+ (NEGATIVE)
[2023-02-23 16:36] LABS: COLOR,URINE YELLOW (YELLOW)
[2023-02-23 17:02] LABS: BACTERIA,URINE 2+ /HPF (None Seen); RBC,URINE 0-5 /HPF (0-5)
[2023-02-23] MEDS ORDERED: cephALEXin 500 MG CAP PO ONE (17:45)
[2023-02-23] MEDS ORDERED: CEPH-588 PO (17:53)
[2023-02-23] MEDS ORDERED: ONDA-188 SL (17:54)
[2023-02-23 18:28] VITALS: BP 141/66; PULSE 75; RESP 20; TEMP 97.6; O2SAT 98
== END 2023-02-23 18:28 | disposition home or self-care (01) ==
LOC: MED 13:22
DX: N39.0 Urinary tract infection, site not specified (principal); E11.65 Type 2 diabetes mellitus with hyperglycemia; R11.2 Nausea with vomiting, unspecified; Z98.890 Other specified postprocedural states; Z79.899 Other long term (current) drug therapy; Z79.2 Long term (current) use of antibiotics; Z79.4 Long term (current) use of insulin; Z79.1 Long term (current) use of non-steroidal anti-inflammatories (NSAID); Z88.6 Allergy status to analgesic agent
CPT/HCPCS: 36415; 71045; 74177; 80053; 81001; 81025; 83690; 84484; 85025; 87086; 96361; 96374; 96375; 96376; 99285; J2270; J2405; J7030; Q9967

== ENCOUNTER 2023-03-13 10:19 | Emergency (ER) | payer MEDICAID ==
[~2023-03-13] VITALS: Ht 157.5 cm; Wt 86.7 kg
[2023-03-13 10:42] VITALS: BP 157/76; PULSE 84; RESP 19; TEMP 98; O2SAT 91
[2023-03-13] MEDS ORDERED: NACL 0.9% 1,000 ML IV SCH (10:55)
[2023-03-13] MEDS ORDERED: FAMOTIDINE 20 MG/2 ML VIAL IVP ONE (10:55)
[2023-03-13] MEDS ORDERED: MORPHINE SULFATE 4 MG/ML SYR IVP ONE (11:15)
[2023-03-13] MEDS ORDERED: ONDANSETRON 4 MG/2 ML VIAL IVP ONE (11:15)
[2023-03-13 11:39] LABS: BASOPHILS % (AUTO) 0.5 % (0.0-2.0); EOSINOPHILS # (AUTO) 0.1 K/uL (0-0.4); EOSINOPHILS % (AUTO) 0.9 % (0.0-4.0); HEMATOCRIT 39.8 % (36-48); HEMOGLOBIN 13.9 g/dL (12.0-16.0); LYMPHOCYTES # (AUTO) 2.1 K/uL (2.5-16.5); LYMPHOCYTES % (AUTO) 28.3 % (20.5-51.1); MEAN CORPUSCULAR HEMOGLOBIN 32 pg (27-31); MEAN CORPUSCULAR HGB CONC 35 g/dL (33-37); MEAN CORPUSCULAR VOLUME 92.1 fL (80-94); MONOCYTES # (AUTO) 0.5 K/uL (0.8-1.0); MONOCYTES % (AUTO) 6.8 % (1.7-9.3); NEUTROPHILS # (AUTO) 4.7 K/uL (1.8-7.7); NEUTROPHILS % (AUTO) 63.5 % (42.2-75.2); PLATELET COUNT (AUTO) 216 K/uL (140-450); RED BLOOD CELL COUNT(AUTO) 4.32 MIL/uL (4.20-5.40); RED CELL DISTRIBUTION WIDTH 13.1 % (11.6-13.7); WHITE BLOOD COUNT (AUTO) 7.4 K/uL (4.8-10.8)
[2023-03-13 11:56] LABS: ALBUMIN 3.4 g/dL (3.4-5.0); ANION GAP 12.2 (8-16); CALCIUM 8.5 mg/dL (8.5-10.1); CARBON DIOXIDE 26.2 mmol/L (21-32); CREATININE 0.9 mg/dL (0.6-1.3); POTASSIUM 4.4 mmol/L (3.5-5.1); TOTAL BILIRUBIN 0.6 mg/dL (0.0-1.0); TOTAL PROTEIN, SERUM 6.9 g/dL (6.4-8.2)
[2023-03-13 12:22] LABS: APPEARANCE,URINE CLEAR (CLEAR); BILIRUBIN,URINE NEGATIVE (NEGATIVE); BLOOD, URINE NEGATIVE (NEGATIVE); COLOR,URINE YELLOW (YELLOW); LEUKOCYTE ESTERASE ,URINE NEGATIVE (NEGATIVE); NITRITE, URINE NEGATIVE (NEGATIVE); PROTEIN,URINE NEGATIVE (NEGATIVE); UGLUCOSE 3+ (NEGATIVE)
[2023-03-13] MEDS ORDERED: DICYCLOMINE HCL LIQUID 20 MG, ALUMINUM HYD/MAG/SIMETHICONE 30 ML, LIDOCAINE VISCOUS 2% ... PO ONE ×3 (12:30)
[2023-03-13] MEDS ORDERED: ALUMINUM HYD/MAG/SIMETHICONE 30 ML UDC ONE (12:34)
[2023-03-13] MEDS ORDERED: DICYCLOMINE HCL LIQUID 10 MG/5 ML UDC ONE (12:34)
[2023-03-13] MEDS ORDERED: MAA30 PO (13:05)
[2023-03-13] MEDS ORDERED: OMEP40EC23 PO (13:05)
[2023-03-13] MEDS ORDERED: SUCR1TAB35 PO (13:05)
[2023-03-13] MEDS ORDERED: METO-485 PO (13:24)
[2023-03-13 13:40] VITALS: BP 157/76; PULSE 84; RESP 19; TEMP 98; O2SAT 91
== END 2023-03-13 13:40 | disposition home or self-care (01) ==
LOC: MED 10:19
DX: K29.70 Gastritis, unspecified, without bleeding (principal); E11.65 Type 2 diabetes mellitus with hyperglycemia; I10 Essential (primary) hypertension; Z88.5 Allergy status to narcotic agent; Z79.1 Long term (current) use of non-steroidal anti-inflammatories (NSAID); Z88.8 Allergy status to other drugs, medicaments and biological substances; Z79.4 Long term (current) use of insulin; Z79.899 Other long term (current) drug therapy
CPT/HCPCS: 36415; 76700; 76705; 80053; 81003; 83690; 85025; 87086; 96361; 96374; 96375; 99285; J2270; J2405; J3490; Q0092

== ENCOUNTER 2023-04-17 11:43 | Emergency (ER) | payer MEDICAID ==
[~2023-04-17] VITALS: Ht 157.5 cm; Wt 83.9 kg
[~2023-04-17 11:43] MED LIST changes: +MAA30 PO; +METO-485 PO; +OMEP40EC23 PO; +SUCR1TAB35 PO
[2023-04-17 11:59] VITALS: BP 148/80; PULSE 89; RESP 15; TEMP 98.7; O2SAT 97
[2023-04-17] MEDS ORDERED: HYDROcodone/APAP 5/325 MG 1 TAB TAB PO ONE (12:30)
[2023-04-17] MEDS ORDERED: NACL 0.9% 1,000 ML IV ONE (12:50)
[2023-04-17] MEDS ORDERED: ONDANSETRON 4 MG ODT PO ONE (12:50)
[2023-04-17 12:53] LABS: APPEARANCE,URINE CLEAR (CLEAR); BILIRUBIN,URINE NEGATIVE (NEGATIVE); BLOOD, URINE NEGATIVE (NEGATIVE); COLOR,URINE YELLOW (YELLOW); LEUKOCYTE ESTERASE ,URINE NEGATIVE (NEGATIVE); NITRITE, URINE NEGATIVE (NEGATIVE); PH,URINE 6.5 (5.0-9.0); PROTEIN,URINE NEGATIVE (NEGATIVE); UGLUCOSE 3+ (NEGATIVE); UROBILINOGEN,URINE 0.2 EU/dL (0.2 - 1)
[2023-04-17 13:13] LABS: BASOPHILS # (AUTO) 0.1 K/uL (0.00-0.22); BASOPHILS % (AUTO) 0.8 % (0.0-2.0); EOSINOPHILS # (AUTO) 0.1 K/uL (0-0.4); EOSINOPHILS % (AUTO) 0.7 % (0.0-4.0); HEMATOCRIT 41.6 % (36-48); HEMOGLOBIN 14.4 g/dL (12.0-16.0); LYMPHOCYTES # (AUTO) 1.5 K/uL (2.5-16.5); LYMPHOCYTES % (AUTO) 16.4 % (20.5-51.1); MEAN CORPUSCULAR HEMOGLOBIN 32 pg (27-31); MEAN CORPUSCULAR HGB CONC 35 g/dL (33-37); MONOCYTES # (AUTO) 0.6 K/uL (0.8-1.0); MONOCYTES % (AUTO) 6.4 % (1.7-9.3); NEUTROPHILS % (AUTO) 75.7 % (42.2-75.2); PLATELET COUNT (AUTO) 257 K/uL (140-450); RED BLOOD CELL COUNT(AUTO) 4.52 MIL/uL (4.20-5.40); RED CELL DISTRIBUTION WIDTH 13.5 % (11.6-13.7); WHITE BLOOD COUNT (AUTO) 9.2 K/uL (4.8-10.8)
[2023-04-17 13:33] LABS: ALANINE AMINOTRANSFERASE 19 U/L (12-78); ALBUMIN 3.8 g/dL (3.4-5.0); ALKALINE PHOSPHATASE 160 U/L (50-136); ANION GAP 12.3 (8-16); ASPARTATE AMINOTRANSFERASE 10 U/L (15-37); CALCIUM 8.9 mg/dL (8.5-10.1); CARBON DIOXIDE 27.7 mmol/L (21-32); CHLORIDE 103 mmol/L (98-107); CREATININE 0.9 mg/dL (0.6-1.3); GFR ARICAN-AMERICAN 83 mL/min (>90); GFR NON ARICAN-AMERICAN 69 mL/min (>90); GLUCOSE 194 mg/dL (74-106); SODIUM SERUM 139 mmol/L (136-145); TOTAL BILIRUBIN 0.4 mg/dL (0.0-1.0); TOTAL PROTEIN, SERUM 7.6 g/dL (6.4-8.2); UREA NITROGEN, BLOOD 9 mg/dL (7-18)
[2023-04-17] MEDS ORDERED: MORPHINE SULFATE 4 MG/ML SYR IVP ONE (13:55)
[2023-04-17] MEDS ORDERED: ONDANSETRON 4 MG/2 ML VIAL IVP ONE ×2 (13:55→16:15)
[2023-04-17 14:09] LABS: ACETONE, SERUM Negative (NEGATIVE)
[2023-04-17] MEDS ORDERED: fentaNYL citrate 0.05 MG/ML VIAL IVP ONE (16:15)
[2023-04-17 17:03] VITALS: BP 163/70; PULSE 82; RESP 21; TEMP 98.5; O2SAT 96
[2023-04-17] MEDS ORDERED: ONDA-188 PO (17:52)
[2023-04-17] MEDS ORDERED: ACET-8905 PO (17:52)
== END 2023-04-17 18:05 | disposition home or self-care (01) ==
LOC: MED 11:43
DX: N20.0 Calculus of kidney (principal); E11.9 Type 2 diabetes mellitus without complications; I10 Essential (primary) hypertension; K21.9 Gastro-esophageal reflux disease without esophagitis; Z79.4 Long term (current) use of insulin; Z79.899 Other long term (current) drug therapy; Z88.5 Allergy status to narcotic agent; Z79.1 Long term (current) use of non-steroidal anti-inflammatories (NSAID); Z88.8 Allergy status to other drugs, medicaments and biological substances
CPT/HCPCS: 36415; 71045; 74176; 80053; 81003; 81025; 82009; 83690; 84484; 85025; 87086; 93005; 96361; 96374; 96375; 96376; 99285; J2270; J2405; J3010; J7030; Q0162

== ENCOUNTER 2023-04-20 10:40 | Emergency (ER) | payer MEDICAID ==
[~2023-04-20] VITALS: Ht 152.4 cm; Wt 72.6 kg
[2023-04-20 10:50] VITALS: BP 152/89; PULSE 99; RESP 18; TEMP 97; O2SAT 98
[2023-04-20] MEDS ORDERED: ONDANSETRON 4 MG ODT PO ONE (11:10)
[2023-04-20] MEDS ORDERED: MORPHINE SULFATE 4 MG/ML SYR IM ONE (11:10)
[2023-04-20] MEDS ORDERED: ONDA8TAB87 PO (11:32)
[2023-04-20] MEDS ORDERED: [UNRECOGNIZED DRUG - CODE] PO (11:32)
[2023-04-20 11:53] VITALS: BP 147/74; PULSE 89; RESP 16; TEMP 97.5; O2SAT 96
== END 2023-04-20 11:53 | disposition home or self-care (01) ==
LOC: MED 10:40
DX: R10.9 Unspecified abdominal pain (principal); R11.2 Nausea with vomiting, unspecified; K21.9 Gastro-esophageal reflux disease without esophagitis; I10 Essential (primary) hypertension; E11.9 Type 2 diabetes mellitus without complications; Z79.4 Long term (current) use of insulin; Z88.5 Allergy status to narcotic agent; Z88.8 Allergy status to other drugs, medicaments and biological substances; Z79.899 Other long term (current) drug therapy
CPT/HCPCS: 96372; 99283; J2270; Q0162; 81002

== ENCOUNTER 2023-05-15 10:08 | Emergency (ER) | payer MEDICAID ==
[~2023-05-15] VITALS: Ht 160 cm; Wt 83.9 kg
[~2023-05-15 10:08] MED LIST changes: +[UNRECOGNIZED DRUG - CODE] PO
[2023-05-15 10:40] VITALS: BP 144/76; PULSE 96; RESP 14; TEMP 96.8; O2SAT 97
[2023-05-15 12:09] VITALS: BP 147/85; PULSE 88; RESP 16; TEMP 96.8
[2023-05-15 12:11] VITALS: O2SAT 98
[2023-05-15] MEDS ORDERED: ACETAMINOPHEN 325 MG TAB PO ONE (13:35)
== END 2023-05-15 14:13 | disposition home or self-care (01) ==
LOC: MED 10:08
DX: N20.0 Calculus of kidney (principal); N28.1 Cyst of kidney, acquired; E27.8 Other specified disorders of adrenal gland; M51.86 Other intervertebral disc disorders, lumbar region; E11.9 Type 2 diabetes mellitus without complications; K21.9 Gastro-esophageal reflux disease without esophagitis; I10 Essential (primary) hypertension; Z79.899 Other long term (current) drug therapy; Z79.2 Long term (current) use of antibiotics; Z79.1 Long term (current) use of non-steroidal anti-inflammatories (NSAID); Z79.4 Long term (current) use of insulin; Z88.6 Allergy status to analgesic agent
CPT/HCPCS: 81002; 99282